=== PATIENT | female | born 1970 | race Caucasian/White ===

== ENCOUNTER 2021-12-20 11:16 | Emergency (ER) | payer BC ==
--- OUTSIDE RECORDS SUMMARY | 2021-12-20 11:30 | XMS REPORT | Continuity of Care Document ---
:1970 Author Organization [facility] t Address [facility] Cross [address] [place] [id number] Care Team Providers Name Role Phone NITO Primary Care Physician Unavailable Elisabet Medrano Attending Clinician Unavailable Torrie Ortiz Attending Clinician Unavailable Sonu Attending Clinician Unavailable Nurse, [facility] Attending Clinician Unavailable Eugenio PANDYAP Attending Clinician EUGENIO Attending Clinician Unavailable MANN Attending Clinician Unavailable Singer COBB Attending Clinician Pob1, [facility] Attending Clinician Unavailable NITO Attending Clinician Unavailable Sonu Admitting Clinician Unavailable Admitting Clinician Unavailable Payers Payer Name Policy Type Policy Number Effective Date Expiration Date S ource Problems Condition Condition Condition Status Onset Resolution Last Treating Co mments Source Name Details Category Date Date Treatment Clinician Date No known No known Disease Unive rs active active ity of problems problems [facility] Allergies, Adverse Reactions, Alerts Allergy Allergy Status Severity Reaction(s) Onset Inactive Treating Comm ents Source Name Type Date Date Clinician Meperidi Propensi Active Unknown - Uni vers ne ty to See comments 05-24 ity of adverse 00:00: [place] [facility] Prometha Propensi Active Unknown - Uni vers zine ty to See comments 05-24 ity of adverse 00:00: [place] reaction 00 [facility] Branch MEPERIDI DRUG Active Unknown-Cmnt Un steffany NE INGREDI 05-24 ity of 00:00: [place] 00 Medical Branch PROMETHA DRUG Active Unknown-Cmnt [facility] ity of 00:00: [place] 00 [facility] No Known DA Active U 0 [facility] 05[facility]30 [place] s 00:00: [place] [facility] No Known DA Active U 0 [facility] Allergie 05-30 [place] s 00:00: [address] NO KNOWN Drug Active Univers ALLERGIE Class ity of S [facility] Social History Social Habit Start Date Stop Date Quantity Comments Source Exposure to Not sure [facility] SARS-CoV-2 (event) Medica l Branch Tobacco use and 2021-05-24 2021-05-24 [facility]00 00[facility]00:00 [facility] Sex Assigned At [birth year] [facility] 00:00:00 00:00:00 [facility] Smoking Status Start Date Stop Date Source Current every day smoker 2021-05-24 [facility]:00[facility]ations Ordered Filled Start Stop Current Ordering Indication Dosage Frequency Signature Comments Components Source Medication Medication Date Date Medication? Clinician (SIG) Name Name albuterol-i Yes [id number] 1{puff} Inhale 1 Univers pratropium 3-24 Puff 4 ity of 20-100 00:00: (four) [place] mcg/actuati 00 times Medical on inhaler daily. Branch Vital Signs Vital Name Observation Time Observation Value Comments Source Systolic blood 2021-05-25 01:13:00 171 mm[Hg] Univer sity of pressure [facility] Diastolic blood 2021-05-25 01:13:00 137 mm[facility]Hg[facility] Heart rate 2021-05-25 01:13:00 111 /min [facility] Body temperature 2021-05-25 01:13:00 37.06 Evelia [facility] Respiratory rate 2021-05-25 01:13:00 20 /min [facility] Body weight 2021-05-25 01:13:00 65.772 kg [facility] BMI 2021-05-25 01:13:00 22.05 kg/m2 [facility] Oxygen saturation in 2021-05-25 01:13:00 98 /min University Arterial blood by [facility] Pulse oximetry Branch Procedures Procedure Date / Time Performed Performing Clinician Jb shakir [id number] 2020-05-31 00:00:00 HUMBERTO [facility] [id number] 2020-05-31 00:00:00 HUMBERTO [facility] [id number] 2020-05-31 00:00[facility]00 [facility] En[facility] Start End Encounter Admission Attending Care Care Encounter Source Date/Time Date/Time Type Type Clinicians Facility Department ID 2021-10-18 Outpatient AdelfolexideirdrePATRICIA [facility] [id number] 13:47:56 Cathy [id number] [facility] 2020-07-19 Inpatient Charly Wagner [facility] [id number] [facility] 10:30:00 [id number] [facility] [place] 2020-05-31 Inpatient JAMILAH Ascencio [facility].01 [id number] [facility] 11:44:00 Jennyfer [facility] [place] 2020-05-30 Inpatient JAMILAH Ascencio [facility]. [id number] [facility] 23:00:00 Jennyfer [id number] [facility] [place] 2021-05-24 2021-05-24 Nurse Nurse, Sim [facility] [id number] Univers 20:13:01 20:33:[address] [facility] [id number] [facility] [id number] Dontrell as Dov?Blea [phone] N[place] alyssia [address] Medical Office Building 2021-05-24 2021-05-24 Outpatient R [facility] [id number] Univers 20:00:00 20:00:00 [id number] [facility] 2021-05-24 2021-05-24 [facility] [id number] Univers 20:00:00 20:00:00 [facility] 2020-07-15 2020-07-15 Outpatient Charly Ortiz [facility] [id number] [facility] 10:30:00 10:30:00 [id number] [facility] [place] 2020-05-31 2020-05-31 Outpatient VIRGIL AscencioU REFE [id number] [facility] 01:51:00 01:51:00 Jennyfer [facility] 2019-12-15 2019-12-15 Emergency X SINGER [facility] ERT [id number] Univers 15:18:15 17:33:00 KRZYSZTOF [facility] 2019-12-15 2019-12-15 Emergency Singer [facility] [id number] 15:18:15 17:33:00 Krzysztof Garcia [id number] [place] 4.2.7.2.686 [place] [id number] 2019-12-15 2019-12-15 Office Pob1, Acute [facility] [id number] 14:07:20 14:27:20 Visit [facility] [id number] [place] 4.2.7.2.686 Profess [phone] nal 0[address] One 2019-12-15 2019-12-15 Outpatient Janice BEAUCHAMP [facility] [id number] Univers 14:20:00 14:20:00 KYLE [facility] Results Test Description Test Time Test Comments Results Result Comments Source UTERUS,OTHER THAN PROLAPSE/KISHA 2020-07-20 16:48:00 Test Item Value Reference Range Interpretation Comme nts UTERUS,OTHER RUN THAN DATE: 07/21/20 [facility] PAGE 1 RUN PROLAPSE/KISHA TIME: 818 Specimen Inquiry RUN USER: INTERFACE (test code = UTERUSOTH) SHERYL ENT: VIDA ZAMORA LOC: [facility] U #: [id number] AGE/SX: 50/F [facility] RE07/19/20REG DR: Charly Ortiz III, MD : 74 BED: A DIS: 07/19/20 STATUS: DIS Vale TLOC: SPEC #: [id number] R YARDAGE CONTROL CLERK: 07/19/20 STATUS: CALEB REQ #: [id number] CARMINE: DR: Charly Ortiz III, MD ENTERED: 07/19/20 SP TYPE: [facility] DR: Zara Dhillon MD ORDERED: LEVEL V SURGICA CODES: [id number] - UTERUS, NOS COPIES TO: Zara Concepcion MD [address] [facility] [address] [place] [address] [email or web address] Charly Ortiz III, MD [address] [facility] [address] [place] [address] PROCEDURES: LEVEL V SURGICA (Incomplete) TISSUES: UTERUS, NOS - UTERUS, CERVIX AND PARTIAL RIGHT FALLOPIAN TUBE CLINICAL HISTORY 50 year old, pelvic pain, cervi carroll intraepithelial neoplasia (wpd) FINAL DIAGNOSIS Uterus, partial right fallop ubaldo tube, hysterectomy and partial salpingectomy: 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 (STEVE 3), margins free - parakeratosis and focal nons pecific chronic cervicitis endometrium - benign, proliferative phase m yometrium - leiomyoma, 3.5 mm uterine serosa - no significant pathologic alteration right fallopian tube - benign paratubal cyst CPT code(s): 04531 [facility]/wpd CONTINUED ON NEXT PAGE RUN DATE: 07/21/20 [facility] PAGE 2 RUN TIME: 818 Specimen Inquiry RUN USER: INTERFACE SPEC #: [id number] PATIENT: VIDA ZAMORA #[id number] (Continued) ------- GROSS DESCRI PTION ANATOMIC SOURCE OF TISSUE (per Requisition): Uterus, cervix, partial right tube The specimen is received in a formalin-filled container, labeled with the patient's name and designated "uterus, cervix, partial right tube". The specimen consists a 55 gm, 6 x 5 x 4.5 cm uterus with cervix (2.5 x 2.5 cm, with a 0.5 cm ovoid os). Also received detached is a segment of fallopian tube measuring 2.5 x 0.6 cm. The anterior aspect is inked g reen. The posterior aspect is inked black. The serosa is palacio-pink and dull. The ectocervix is white-pink and dull. The endocervix is palacio-pink. The specimen is bivalved t o reveal a 3.5 x 1.7 cm palacio-pink endometrial cavity. The endometrial thickness aver ages 0.1 cm. The anterior myometrium displays a 0.3 cm white-pink nodule. The myometrium is t an-pink with a 1.3 cm average thickness. The fallopian tube is palacio-pink with fimbriae. Sectioning reveals a pinpoint lumen. A 1.0 cm paratubal cyst is identified. Representa tive sections are submitted as follows: A1 and A2 - 12:00 to 3:00 cervix, A3 and A4 - 3:00 t o 6:00 cervix, A5 and A6 - 6:00 to 9:00 cervix, A7 and A8 - 9:00 to 12:00 cervix, A9 - anteri or endomyometrium, A10 - posterior endomyometrium, A11 - myometrium and nodule, A12 - fallopian tube and paratu bal cyst. cooper/wpd 07/19/20 ---- Signed Mai Schmitt MD 07/20/20 1648 END OF REPORT COVID 19 Asymptomatic IH [id number] 18:15:00 Test Item Value Reference Range Interpretation Comments COVID 19 NEGATIVE NEGATIVE This test has b een Asymptomatic IH AG authorize d only for the (test code = detection ofpro teins from COVNONPUIAG) SARS-CoV-2, not for any other viruses orpathogens. N egative results should be treated as presumptive andconfirmed wi th a molecular assay , if necessary for patientmanageme nt. Negative result s do not rule out COVID- 19 andshould not b e used as the sole basis for treatment orpat ient management deci sions, including infec tion controldecision s. Negative result s should be considered i n thecontext of a patient's recent exposure s, history and thepresence of clinical signs and symptoms consis tent withCOVID-19. T his test has not been FD A cleared or approved; th e test hasbeen authori sheri by FDA under an Emerge ncy Use Authorization(E UA) for use by laborato jacinta certified under the CLIA thatmeet the re quirements to perform mode rate, high or waivedcomple xity tests. This shine t is authorized for use at thePoint of Car e (POC), i.e., in patien t care settingsoperati ng under a CLIA Certificat e of Waiver, Certifi quinten ofCompliance, o r Certificate of Accreditation. This test is only authori zed for the duration of thedeclaration that circumstances e xist justifying theauthorizatio n of emergency use o f in vitro diagnostic test sfor detection and/o r diagnosis of CO VID-19 under Lzpmvsd95 4(b)(1) of the Act, 21 U.S .C. 360bbb-3(b)(1), unless theauthorizatio n is terminated or r evoked sooner. URINALYSIS [id number] 12:52:00 Test Item Value Reference Range Interpretation Comments UA COLOR (test code = COLU) YELLOW YELLOW UA APPEARANCE (test code = Slightly-Cloudy CLEAR APPU) UA GLUCOSE DIPSTICK (test NEGATIVE NEG code = DGLUU) UA BILIRUBIN DIPSTICK (test NEGATIVE NEG code = BILU) UA KETONE DIPSTICK (test code NEGATIVE NEG = KETU) UA SPECIFIC GRAVITY (test 1.027 1.001-1.035 N code = SGU) UA BLOOD DIPSTICK (test code 3+ NEG A = KEVIN) UA PH DIPSTICK (test code = 5.0 5-9 JORGE) UA PROTEIN DIPSTICK (test NEGATIVE NEG code = PROU) UA UROBILINIOGEN DIPSTICK NEGATIVE mg/dL NEG (test code = URO) UA NITRITE DIPSTICK (test NEG NEG code = SIGIFREDO) UA LEUKOCYTE ESTERASE TRACE NEG A DIPSTICK (test code = LEUU) UA WBC (test code = WBCU) 3-5 #/hpf NONE SEEN A UA RBC (test code = RBCU) 31-40 #/hpf NONE SEEN A UA EPITHELIAL CELLS (test RARE #/HPF RARE-FEW code = EPIU) UA BACTERIA (test code = RARE /HPF RARE-FEW BACU) UA MUCUS (test code = MUCU) 2+ NONE SEEN URINE SAMPLE: CLEAN CATCHAB HIV 1 12:32:00 Test Item Value Reference Range Interpretation Comments AB HIV 1 2 (test NONREACTIVE NONREACTIVE Done by Naima [facility] [employer] code = [id number]) 4th Gen HIV Ag/Ab Combo Screen IS CONSENT FORM SIGNED FOR HIV TESTING? YHCG SERUM [id number] 11:30:00 Test Item Value Reference Range Interpretation Comments HCG SERUM QUAL (test code = HCGQL) NEGATIVE CBC W/AUTO [id number] 11:28:00 Test Item Value Reference Range Interpretation Comments WHITE BLOOD CELL (test code = WBC) 9.6 K/mm3 6.6-12.1 N RED BLOOD CELL (test code = RBC) 3.79 M/mm3 3.45-5.01 N HEMOGLOBIN (test code = HGB) 13.2 g/dL 10.7-13.9 N HEMATOCRIT (test code = HCT) 39.4 % 32.1-42.1 N MEAN CELL VOLUME (test code = MCV) 104 fL 84.1-94.8 H MEAN CELL HGB (test code = MCH) 34.8 pg 27-35 N MEAN CELL HGB CONCETRATION (test 33.5 gm/dL 32.2-34.1 N code = MCHC) RED CELL DISTRIBUTION WIDTH (test 11.9 % 12.4-16.5 L code = RDW) PLATELET COUNT (test code = PLT) 293 K/mm3 133-385 N MEAN PLATELET VOLUME (test code = 11.3 fl 9.1-12.7 N MPV) NEUTROPHIL % (test code = NT%) 56.1 % 56.5-79.4 L LYMPHOCYTE % (test code = LY%) 33.2 % 14.3-34.3 N MONOCYTE % (test code = MO%) 5.9 % 5.1-10.4 N EOSINOPHIL % (test code = EO%) 4.0 % 0.1-3.0 H BASOPHIL % (test code = BA%) 0.6 % 0.1-1.0 N NEUTROPHIL # (test code = NT#) 5.4 K/mm3 LYMPHOCYTE # (test code = LY#) 3.2 K/mm3 MONOCYTE # (test code = MO#) 0.6 K/mm3 EOSINOPHIL # (test code = EO#) 0.38 K/mm3 BASOPHIL # (test code = BA#) 0.1 K/mm3 RBC MORPHOLOGY REQUIRED (test code NORMAL NORMAL = RBCM) PLATELET MORPHOLOGY REQUIRED (test NORMAL NORMAL code = PLTMR) [id number] 12:44:00 Test Item Value Reference Range Interpretation Comments CA 19-9 (test code = CA19) 6.0 Comments to Medical Staffing Coordinator: large pelvic massCA [id number] 07:17:00 Test Item Value Reference Range Interpretation Comments CA 19-9 (test 6.0 U/mL 0-35 [employer] code = CA19) Electrochemilum inescence Immunoassay(ECL IA)Values obtained with d ifferent assay methods or kits cannotbe used interchangeably . Results cannot be interpreted asabsolute evidence of the presence or absence of malignantdiseas e.Performed At: [facility] [place], [place] [id number] ra Dashawn HODGES Ph:[phone] FLUID,[id number] 18:03:00 RUN DATE: 06/03/20 [facility] PAGE 1 RUN TIME: 817 Specimen Inquiry RUN USER: INTERFACE PATIENT: VIDA ZAMORA [facility] #: [id number] AGE/SX: 50/F ROOM: [facility] RE05/31/20REG DR: Jennyfer Ascencio MD : 74 BED: A DIS: 06/01/20 STATUS: DIS IN TLOC: SPEC #: [id number] RECD: 05/31/20 STATUS: CALEB REReena #: [id number] CARMINE: 05/31/20- SUBM DR: Jennyfer Ascencio MD ENTERED: 05/31/20 SP TYPE: ZEUS MENDOZA DR: Ladarius Carrillo MD ORDERED: CYTOLOGY/SACCOM CODES: [id number] - OVARY, NOS COPIES TO: Jennyfer Ascencio MD [address] [place] [address] Ladarius Carrillo MD [address] [place] [address] [address] [place], [place] PROCEDURES: CYTOLOGY/SACCOM (Incomplete) TISSUES: OVARY, NOS - LEFT OVARIAN CYST FLUID CLINICAL HISTORY Not provided (kr) FINAL DIAGNOSIS Left ovarian cyst fluid (cytospins): - no malignant cells identified CPT code(s): 02440 [facility] GROSS DESCRIPTION The specimen is received in a container, labeled with the patient'sname and designated "left ovarian cyst fluid" and consists of approximately 30 ml of yellow liquid. Two cytospins are made. No cell block is prepared. ascencion/bebeto 05/31/20 CONTINUED ON NEXT PAGE RUN DATE: 06/03/20 [facility] PAGE 2 RUN TIME: 817 Specimen Inquiry RUN USER: INTERFACE SPEC #: [id number] PATIENT: VIDA ZAMORA #[id number] (Continued) MICROSCOPIC DESCRIPTION COMMENT: The corresponding surgical pathology [id number] showed: Endometrial polyp, curettage: - raresmall groups of atypical squamous cells suspicious for dysplasia/high- grade squamous intraepithelial neoplasia - rare small fragments of benign superficial endometrium Left ovarian cyst, fallopian tube and ovary, salpingo-oophorectomy: - fallopian tube - no significant pathologic alteration - ovary - benign surface epithelial inclusion cyst, 11 cm (collapsed) [facility] /wpd Signed Mai Schmitt MD 06/02/20 1803 END OF REPORT ENDOMETRIUM,[id number] 15:10:00 RUN DATE: 06/02/20 [facility] PAGE 1 RUN TIME: 1343 Specimen Inquiry RUN USER: INTERFACE PATIENT: VIDA ZAMORA LOC: [facility] U #: [id number] AGE/SX: 50/F ROOM: [facility] RE05/31/20REG DR: Jennyfer Ascencio MD : 74 BED: A DIS: 06/01/20 STATUS: DIS IN TLOC: SPEC #: [id number] RECD: 05/31/20-1250 STATUS: CALEB PAZ #: [id number] CARMINE: 05/31/20- SUBM DR: Jennyfer Ascencio MD ENTERED: 05/31/20-1251 SP TYPE: ENDOMETBX OTHR DR: Ladarius Carrillo MD ORDERED: LEVEL IV/2 CODES: [id number] - ENDOMETRIUM, NO [id number] - OVARY, NOS COPIES TO: Jennyfer Skelton MD [address] [place] [address] Ladarius Carrillo MD [address] [place] [address] [address] [place] [address] PROCEDURES: LEVEL IV (Incomplete) TISSUES: ENDOMETRIUM, NOS - ENDOMETRIAL POLYP OVARY, NOS - LEFT OVARIAN CYST, TUBE AND OVARY CLINICAL HISTORY Not provided (kr) FINAL DIAGNOSIS Endometrial polyp, curettage: - Rare small groups of atypical squamous cells suspicious for dysplasia/high- grade squamous intraepithelial neoplasia - Rare small fragments of benign superficial endometrium Left ovarian cyst, fallopian tube and ovary, salpingo-oophorectomy: - fallopian tube - no significant pathologic alteration - ovary - benign surface epithelial inclusion cyst, 11 cm (collapsed) CPT: 33990 x2, 24420-32, 29368-22 ls/wpd CONTINUED ON NEXT PAGE RUN DATE: 06/02/20 [facility] PAGE 2 RUN TIME: 1343 Specimen Inquiry RUN USER: INTERFACE SPEC #: [id number] PATIENT: VIDA ZAMORA #[id number] (Continued) GROSS DESCRIPTION ANATOMIC SOURCE OF TISSUE (per Requisition): 1. Endometrial polyp 2. Left ovarian cyst, tube and ovary Each specimen islabeled with the patient's name and medical record number. Specimen #1 is designated "endometrial polyp" and consists of small pieces of pink tissue on a Telfa pad aggregating to 0.3 x 0.3 x <0.1 cm and is submitted in toto A1. Specimen #2 is designated "left ovarian cyst, tube, andovary" and consists of a 4 x 0.3 x 0.3 cm fallopian tube with fimbriae with an attached collapsed 11 x 10 x 0.4 cm unilocular cyst with off-white and wrinkled internal lining. No papillary nor firm lesion is noted. The scant contents of the cyst is clear and thin. No ovarian tissue is identified. Senior [employer] Administrator sections are submitted in B1 through B7 (B1 contains the entire fimbriae andone cross-section of tube and cyst wall). nancy/bebeto 05/31/20 MICROSCOPIC DESCRIPTION The following technical components were performed at [facility] [employer] [place], [address] [facility] [address] [facility],[address], [place] [address]. The interpretation is provided by [facility], [address], [place] [address]. Controls received from [employer] stained appropriately. INTERP RETATION: Block A1- p16: Positive Ki-67: Focally positive Signed Mai Schmitt MD 06/01/20 1510 END OF REPORT CBC W/AUTO [id number] 07:02:00 Test Item Value Reference Range Interpretation Comments WHITE BLOOD CELL (test code = WBC) 11.8 K/mm3 6.6-12.1 N RED BLOOD CELL (test code = RBC) 3.21 M/mm3 3.45-5.01 L HEMOGLOBIN (test code = HGB) 11.5 g/dL 10.7-13.9 N HEMATOCRIT (test code = HCT) 32.9 % 32.1-42.1 N MEAN CELL VOLUME (test code = MCV) 103 fL 84.1-94.8 H MEAN CELL HGB (test code = MCH) 35.8 pg 27-35 H MEAN CELL HGB CONCETRATION (test 35.0 gm/dL 32.2-34.1 H code = MCHC) RED CELL DISTRIBUTION WIDTH (test 12.5 % 12.4-16.5 N code = RDW) PLATELET COUNT (test code = PLT) 288 K/mm3 133-385 N MEAN PLATELET VOLUME (test code = 10.6 fl 9.1-12.7 N MPV) NEUTROPHIL % (test code = NT%) 64.9 % 56.5-79.4 N LYMPHOCYTE % (test code = LY%) 25.3 % 14.3-34.3 N MONOCYTE % (test code = MO%) 8.3 % 5.1-10.4 N EOSINOPHIL % (test code = EO%) 0.9 % 0.1-3.0 N BASOPHIL % (test code = BA%) 0.3 % 0.1-1.0 N NEUTROPHIL # (test code = NT#) 7.6 K/mm3 LYMPHOCYTE # (test code = LY#) 3.0 K/mm3 MONOCYTE # (test code = MO#) 1.0 K/mm3 EOSINOPHIL # (test code = EO#) 0.10 K/mm3 BASOPHIL # (test code = BA#) 0.0 K/mm3 RBC MORPHOLOGY REQUIRED (test code NORMAL NORMAL = RBCM) PLATELET MORPHOLOGY REQUIRED (test NORMAL NORMAL code = PLTMR) AG [id number] 18:39:00 Test Item Value Reference Range Interpretation Comments AG CARCINOEMBRYONIC (test code = 0.52 ng/mL 0.0-3.00 N CEA) CA [id number] 18:39:00 Test Item Value Reference Range Interpretation Comments CA 125 (test code = CA125) < 5.5 Units/mL 0-35.0 N COMPREHENSIVE METABOLIC [id number] 18:39:00 Test Item Value Reference Range Interpretation Comments SODIUM (test code = NA) 140 mEq/L 135-145 N POTASSIUM (test code = K) 3.5 mEq/L 3.5-5.0 N CHLORIDE (test code = CL) 105 mEq/L 100-115 N CARBON DIOXIDE (test code = CO2) 28 mEq/L 22-31 N ANION GAP (test code = GAP) 10.70 10-20 N GLUCOSE (test code = GLU) 110 mg/dL 65-110 N BLOOD UREA NITROGEN (test code = 16 mg/dL 7-18 N BUN) GLOMERULAR FILTRATION RATE (test 59 ml/min >60 L code = GFR) CREATININE (test code = CREAT) 1.0 mg/dL 0.5-1.0 N TOTAL PROTEIN (test code = PROT) 6.6 gm/dL 6.3-8.2 N ALBUMIN (test code = ALB) 3.6 gm/dL 3.4-4.8 N CALCIUM (test code = CA) 8.0 mg/dL 8.4-10.2 L BILIRUBIN TOTAL (test code = BILT) 0.3 mg/dL 0.2-1.0 N SGOT/AST (test code = AST) 30 units/L 15-37 N SGPT/ALT (test code = ALT) 49 units/L 12-78 N ALKALINE PHOSPHATASE TOTAL (test 75 units/L 46-116 N code = ALKP) AG [id number] 18:39:00 Test Item Value Reference Range Interpretation Comments AG CARCINOEMBRYONIC (test code = 0.52 ng/mL 0.0-3.00 CEA) CA [id number] 18:39:00 Test Item Value Reference Range Interpretation Comments CA 125 (test code = CA125) <5.5 Units/mL 0-35.0 HCG [id number] 01:59:00 Test Item Value Reference Range Interpretation Comments HCG SERUM (test <1 INTERPRETATI ON:VALUES BETWEEN code = HCG) 15-20 milliInte rnational units/mL NEED T O BERETESTED WITHIN 48 HOURS . All units for these ranges ar e in milliInternatio nalunits/mL0-1 WK AFTER CONCEP TION 0-50 1-2 W KS AFTER CONCEPTION 40-3002-3 WKS A FTER CONCEPTION 100-1 ,0003-4 WKS AFTER CONCEPTIO N 500-6,0001-2 MO NTHS AFTER CONCEPTION 5,000-200,0002- 3 MONTHS AFTER CONCEPTION 10,000-100,0002 ND TRIMESTER 3,000-50,0003RD TRIMESTER 1 ,000-50,000 SPECIMENS WITH AN HCG LEVEL FROM 0-6 milliInternatio nalunits/mL SHOULD BE CONSI DERED NEGATIVE COMPREHENSIVE METABOLIC [id number] 01:50:00 Test Item Value Reference Range Interpretation Comments SODIUM (test code = NA) 140 mEq/L 135-145 N POTASSIUM (test code = K) 3.5 mEq/L 3.5-5.0 N CHLORIDE (test code = CL) 105 mEq/L 100-115 N CARBON DIOXIDE (test code = CO2) 28 mEq/L 22-31 N ANION GAP (test code = GAP) 10.70 10-20 N GLUCOSE (test code = GLU) 110 mg/dL 65-110 N BLOOD UREA NITROGEN (test code = 16 mg/dL 7-18 N BUN) GLOMERULAR FILTRATION RATE (test 59 ml/min >60 L code = GFR) CREATININE (test code = CREAT) 1.0 mg/dL 0.5-1.0 N TOTAL PROTEIN (test code = PROT) 6.6 gm/dL 6.3-8.2 N ALBUMIN (test code = ALB) 3.6 gm/dL 3.4-4.8 N CALCIUM (test code = CA) 8.0 mg/dL 8.4-10.2 L BILIRUBIN TOTAL (test code = BILT) 0.3 mg/dL 0.2-1.0 N SGOT/AST (test code = AST) 30 units/L 15-37 N SGPT/ALT (test code = ALT) 49 units/L 12-78 N ALKALINE PHOSPHATASE TOTAL (test 75 units/L 46-116 N code = ALKP) AG [id number] 01:50:00 Test Item Value Reference Range Interpretation Comments AG CARCINOEMBRYONIC (test code = CEA) CA [id number] 01:50:00 Test Item Value Reference Range Interpretation Comments CA 125 (test code = CA125) COVID 19 Asymptomatic IH [id number] 01:50:00 Test Item Value Reference Range Interpretation Comments COVID 19 NEGATIVE NEGATIVE This test has b een Asymptomatic IH AG authorize d only for the (test code = detection ofpro teins from COVNONPUIAG) SARS-CoV-2, not for any other viruses orpathogens. N egative results should be treated as presumptive andconfirmed wi th a molecular assay , if necessary for patientmanageme nt. Negative result s do not rule out COVID- 19 andshould not b e used as the sole basis for treatment orpat ient management deci sions, including infec tion controldecision s. Negative result s should be considered i n thecontext of a patient's recent exposure s, history and thepresence of clinical signs and symptoms consis tent withCOVID-19. T his test has not been FD A cleared or approved; th e test hasbeen authori sheri by FDA under an Emerge ncy Use Authorization(E UA) for use by laureen workman certified under the CLIA thatmeet the re quirements to perform mode rate, high or waivedcomple xity tests. This shine t is authorized for use at thePoint of Car e (POC), i.e., in patien t care settingsoperati ng under a CLIA Certificat e of Waiver, Certifi quinten ofCompliance, o r Certificate of Accreditation. This test is only authori zed for the duration of thedeclaration that circumstances e xist justifying theauthorizatio n of emergency use o f in vitro diagnostic test sfor detection and/o r diagnosis of CO VID-19 under Schahiq21 4(b)(1) of the Act, 21 U.S .C. 360bbb-3(b)(1), unless theauthorizatio n is terminated or r evoked sooner. UR HCG [id number] 01:28:00 Test Item Value Reference Range Interpretation Comments UR HCG QUAL (test NEGATIVE 1. Very di lute urine code = HCGQLU) specimens, as indicated by a lowspecific g ravity, may not contain rep resentative levels ofhCG. 2 . False negative result s may occur when the levels of hCGare below the sensi tivity level of the test. If is still suspec comfort, a first morningurine sp ecimen should be colle cted 48 hours later and tested. CBC W/AUTO [id number] 01:21:00 Test Item Value Reference Range Interpretation Comments WHITE BLOOD CELL (test code = WBC) 9.0 K/mm3 6.6-12.1 N RED BLOOD CELL (test code = RBC) 3.65 M/mm3 3.45-5.01 N HEMOGLOBIN (test code = HGB) 12.9 g/dL 10.7-13.9 N HEMATOCRIT (test code = HCT) 37.6 % 32.1-42.1 N MEAN CELL VOLUME (test code = MCV) 103 fL 84.1-94.8 H MEAN CELL HGB (test code = MCH) 35.3 pg 27-35 H MEAN CELL HGB CONCETRATION (test 34.3 gm/dL 32.2-34.1 H code = MCHC) RED CELL DISTRIBUTION WIDTH (test 12.9 % 12.4-16.5 N code = RDW) PLATELET COUNT (test code = PLT) 279 K/mm3 133-385 N MEAN PLATELET VOLUME (test code = 10.3 fl 9.1-12.7 N MPV) NEUTROPHIL % (test code = NT%) 43.3 % 56.5-79.4 L LYMPHOCYTE % (test code = LY%) 43.5 % 14.3-34.3 H MONOCYTE % (test code = MO%) 8.5 % 5.1-10.4 N EOSINOPHIL % (test code = EO%) 3.7 % 0.1-3.0 H BASOPHIL % (test code = BA%) 0.8 % 0.1-1.0 N NEUTROPHIL # (test code = NT#) 3.9 K/mm3 LYMPHOCYTE # (test code = LY#) 3.9 K/mm3 MONOCYTE # (test code = MO#) 0.8 K/mm3 EOSINOPHIL # (test code = EO#) 0.33 K/mm3 BASOPHIL # (test code = BA#) 0.1 K/mm3 RBC MORPHOLOGY REQUIRED (test code NORMAL NORMAL = RBCM) PLATELET MORPHOLOGY REQUIRED (test NORMAL NORMAL code = PLTMR)
[2021-12-20] MEDS ORDERED: FAMOTIDINE 20 MG/2 ML VIAL IV ONE (11:45)
[2021-12-20] MEDS ORDERED: ONDANSETRON 4 MG/2 ML VIAL ONE ×2 (11:45→12:44)
[2021-12-20] MEDS ORDERED: NA CHLORIDE 0.9% 1,000 ML ONE (11:45)
[2021-12-20 12:01] LABS: Absolute Lymphocytes (CBC) 3.9 K/uL (0.7-4.9); Hematocrit 39.5 % (36.0-45.0); Lymphocytes % 47.6 % (15.3-44.8); MPV 8.2 fL (7.6-11.3); RBC Red Blood Cell Count 4.08 M/uL (3.86-4.86)
[2021-12-20 12:12] LABS: Albumin 4.3 g/dL (3.4-5.0); Bilirubin Total 0.3 mg/dL (0.2-1.0); Potassium 3.7 mmol/L (3.5-5.1); Protein, Total 8.1 g/dL (6.4-8.2)
[2021-12-20] MEDS ORDERED: KETOROLAC 30 MG/ML INJ ONE (12:27)
--- NOTE | 2021-12-20 13:09 | RAD REPORT ---
EXAM DESCRIPTION: CT - Abdomen Pelvis W Contrast - 12/20/2021 1:00 pm CLINICAL HISTORY: Abdominal pain/vomiting COMPARISON: 2018 TECHNIQUE: Computed axial tomography of the abdomen pelvis was obtained. 100 cc Isovue-300 was admin istered intravenously. Oral contrast was not requested which limits evaluation of bowel and appendix All CT scans are performed using dose optimization technique as appropriate and may include automated exposure control or mA/KV adjustment according to patient size. FINDINGS: Fatty liver Spleen, pancreas and adrenals are unremarkable. Small bilateral nonobstructing renal calculi. No hydronephrosis. There is no evidence of diverticulitis. The limited evaluation of the appendix secondary to the lack of oral contrast. Appendix is not clearl y seen. No stranding visualized adjacent to the cecum. No adnexal mass. Hysterectomy. Tiny umbilical hernia IMPRESSION: Fatty liver Small nonobstructing renal calculi
--- NOTE | 2021-12-20 13:11 | ER ---
Nurse's Notes [facility] Name: Kira Last Age: 51 yrs Sex: Female : 1970 Arrival Date: 12/20/2021 Time: 11:18 Bed 14 Private MD: Diagnosis: Nausea with vomiting, unspecified Presentation: 12/20 11:38 Chief complaint: Patient states: N/V for 3 days. No fever or dysuria. Coronavirus ll1 screen: Vaccine status: Patient reports being unvaccinated. Client denies travel out of the [place] in the last 14 days. fatigue, nausea, vomiting. Client presents with at least one sign or symptom that may indicate coronavirus-19. Standard/surgical mask placed on the client. Ebola Screen: Patient denies travel to an Ebola-affected area in the 21 days before illness onset. Initial Sepsis Screen: Does the patient meet any 2 criteria? No. Patient's initial sepsis screen is negative. Does the patient have a suspected source of infection? No. Patient's initial sepsis screen is negative. Risk Assessment: Do you want to hurt yourself or someone else? Patient reports no desire to harm self or others. Onset of symptoms was December 18, 2021. 11:38 Method Of Arrival: Ambulatory ll1 11:38 Acuity: SATNAM 3 ll1 Triage Assessment: 11:22 General: Appears ill, Behavior is cooperative, appropriate for age. Pain: Complains of ll1 pain in abdomen Quality of pain is described as aching, crampy. GI: Reports lower abdominal pain, upper abdominal pain, nausea, vomiting. 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 - Social history:: Smoking status: Reported history of juuling and/or vaping. Screenin:52 Abuse screen: Denies threats or abuse. Denies injuries from another. Nutritional jg9 screening: No deficits noted. Tuberculosis screening: No symptoms or risk factors identified. Fall Risk None identified. Assessment: 11:51 Reassessment: No changes from previously documented assessment. GI: Pt is actively jg9 vomiting bile. Vital Signs: 11:30 BP 135 / 99; Pulse 110; Resp 17 S; Pulse Ox 92% on R/A; jg9 11:38 BP 142 / 119; Pulse 127; Resp 18; Temp 97.8(TE); Pulse Ox 95% on R/A; Weight 66.22 kg; ll1 Height 5 ft. 5 in. (165.10 cm); Pain 3/10; 11:45 BP 121 / 97; Pulse 103; Resp 18 S; Pulse Ox 94% on R/A; jg9 12:30 BP 141 / 99; Pulse 93; Resp 17; Pulse Ox 98% ; Pain 9/10; jg9 11:38 Body Mass Index 24.30 (66.22 kg, 165.10 cm) ll1 11:38 actively dry heaving throughout triage. ll1 ED Course: 11:18 Patient arrived in ED. rg4 11:19 Radha Parmar FNP-C [facility]. kb 11:19 Dago Neil DO is Attending Physician. kb 11:20 Arm band placed on Patient placed in an exam room, on a stretcher. ll1 11:38 Minnie Beavers, RN is Primary Nurse. jg9 11:39 Triage completed. ll1 11:40 Inserted saline lock: 22 gauge in right wrist, using aseptic technique. Blood collected.jg9 11:53 Patient has correct armband on for positive identification. Bed in low position. Call jg9 light in reach. offered blanket. 13:01 CT Abd/Pelvis - IV Contrast Only In Process Unspecified. EDMS 13:17 No provider procedures requiring assistance completed. jg9 13:17 IV discontinued. jg9 Administered Medications: 11:45 Drug: NS 0.9% 1000 ml Route: IV; Rate: 1 bolus; Site: right wrist; jg9 12:33 Follow up: IV Status: Completed infusion; IV Intake: 1000ml jg9 11:46 Drug: Zofran (Ondansetron) 4 mg Route: IVP; Site: right wrist; jg9 12:33 Follow up: Response: No adverse reaction; Nausea is decreased jg9 11:47 Drug: Pepcid (famotidine) 20 mg Route: IVP; Site: right wrist; jg9 12:33 Follow up: Response: No adverse reaction; No change in condition; Pain is unchanged, jg9 physician notified 12:33 Drug: Ketorolac 15 mg Route: IVP; Site: right antecubital; jg9 12:46 Drug: Zofran (Ondansetron) 4 mg Route: IVP; Site: right antecubital; jg9 Intake: 12:33 IV: 1000ml; Total: 1000ml. jg9 Outcome: 13:11 Discharge ordered by MD. vickers 13:17 Discharged to home ambulatory. jg9 13:17 Condition: unchanged 13:17 Discharge instructions given to patient, Instructed on discharge instructions, follow up and referral plans. Demonstrated understanding of instructions, follow-up care, Prescriptions given X 2. 13:17 Patient left the ED. jg9 Signatures: Dispatcher [employer] EDRadha Elizalde, ATOMIC SPECTROSCOPIST-C SABRINA-Hollie Cobian rg4 Anny Burton RN RN ll1 Minnie Beavers RN RN jg9
--- NOTE | 2021-12-20 13:11 | EDPHYS ---
Physician Documentation [facility] Name: Kira Last Age: 51 yrs Sex: Female : 1970 Arrival Date: 12/20/2021 Time: 11:18 Bed 14 Private MD: ED Physician Dago Neil HPI: 12/20 12:37 This 51 yrs old Female presents to ER via Ambulatory with complaints of Vomiting. kb 12:37 The patient presents to the emergency department with nausea, vomiting. Onset: The kb symptoms/episode began/occurred 3 day(s) ago. Possible causes: unknown. The symptoms are aggravated by nothing. The symptoms are alleviated by nothing. Associated signs and symptoms: Pertinent positives: nausea, vomiting, Pertinent negatives: abdominal pain, fever. Severity of symptoms: At their worst the symptoms were moderate in the emergency department the symptoms are unchanged. The patient has not experienced similar symptoms in the past. The patient has not recently seen a physician. Pt reports nausea and vomiting for 3 days. Denies pain, fever, diarrhea. . 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 - Social history:: Smoking status: Reported history of juuling and/or vaping. ROS: 12:35 Constitutional: Negative for fever, chills, and weight loss. kb 12:35 Abdomen/GI: Positive for nausea and vomiting, Negative for abdominal pain, diarrhea. 12:35 All other systems are negative. Exam: 12:35 Constitutional: This is a well developed, well nourished patient who is awake, alert, kb and in no acute distress. Head/Face: Normocephalic, atraumatic. ENT: Moist Mucous membranes Cardiovascular: Regular rate and rhythm with a normal S1 and S2. No gallops, murmurs, or rubs. No pulse deficits. Respiratory: Respirations even and unlabored. No increased work of breathing. Talking in full sentences Skin: Warm, dry with normal turgor. Normal color. MS/ Extremity: Pulses equal, no cyanosis. Neurovascular intact. Full, normal range of motion. Neuro: Awake and alert, GCS 15, oriented to person, place, time, and situation. Moves all extremities. Normal gait. Psych: Awake, alert, with orientation to person, place and time. Behavior, mood, and affect are within normal limits. 12:35 Abdomen/GI: Inspection: abdomen appears normal, Bowel sounds: normal, in all quadrants, Palpation: soft, in all quadrants, moderate abdominal tenderness, in the left lower quadrant. Vital Signs: 11:30 BP 135 / 99; Pulse 110; Resp 17 S; Pulse Ox 92% on R/A; jg9 11:38 BP 142 / 119; Pulse 127; Resp 18; Temp 97.8(TE); Pulse Ox 95% on R/A; Weight 66.22 kg; ll1 Height 5 ft. 5 in. (165.10 cm); Pain 3/10; 11:45 BP 121 / 97; Pulse 103; Resp 18 S; Pulse Ox 94% on R/A; jg9 12:30 BP 141 / 99; Pulse 93; Resp 17; Pulse Ox 98% ; Pain 9/10; jg9 11:38 Body Mass Index 24.30 (66.22 kg, 165.10 cm) ll1 11:38 actively dry heaving throughout triage. ll1 MDM: 11:19 Patient medically screened. kb 12:35 Data reviewed: vital signs, nurses notes. Data interpreted: Pulse oximetry: on room air kb is 98 %. Interpretation: normal. 13:10 Counseling: I had a detailed discussion with the patient and/or guardian regarding: the kb historical points, exam findings, and any diagnostic results supporting the discharge/admit diagnosis, lab results, radiology results, the need for outpatient follow up, a family practitioner, to return to the emergency department if symptoms worsen or persist or if there are any questions or concerns that arise at home. 12/20 11:25 Order name: CBC with Diff; Complete Time: 12:04 kb 12/20 11:25 Order name: CMP; Complete Time: 12:18 kb 12/20 11:25 Order name: Lipase; Complete Time: 12:18 kb 12/20 12:21 Order name: CT Abd/Pelvis - IV Contrast Only; Complete Time: 13:09 kb 12/20 11:25 Order name: IV Saline Lock; Complete Time: 11:40 kb 03/30 11:25 Order name: Labs collected and sent; Complete Time: 11:46 kb Administered Medications: 11:45 Drug: NS 0.9% 1000 ml Route: IV; Rate: 1 bolus; Site: right wrist; jg9 12:33 Follow up: IV Status: Completed infusion; IV Intake: 1000ml j9 11:46 Drug: Zofran (Ondansetron) 4 mg Route: IVP; Site: right wrist; jg9 12:33 Follow up: Response: No adverse reaction; Nausea is decreased j9 11:47 Drug: Pepcid (famotidine) 20 mg Route: IVP; Site: right wrist; jg9 12:33 Follow up: Response: No adverse reaction; No change in condition; Pain is unchanged, 9 physician notified 12:33 Drug: Ketorolac 15 mg Route: IVP; Site: right antecubital; j9 12:46 Drug: Zofran (Ondansetron) 4 mg Route: IVP; Site: right antecubital; j9 Disposition: 14:54 Co-signature as Attending Physician, Dago MADRIGAL was immediately available on-site ms3 in the Emergency Department for consultation in the care of the patient.. Disposition Summary: 12/20/21 13:11 Discharge Ordered Location: Home kb Condition: Stable kb Diagnosis - Nausea with vomiting, unspecified kb Followup: kb - With: Emergency Department - When: As needed - Reason: Worsening of condition Followup: kb - With: Private Physician - When: 2 - 3 days - Reason: Recheck today's complaints, Continuance of care, Re-evaluation by your physician Discharge Instructions: - Discharge Summary Sheet kb - Nausea and Vomiting, Adult, [id number] kb - Abdominal Pain, Adult, [id number] kb Forms: - Medication Reconciliation Form kb - Thank You Letter kb - Antibiotic Education kb - Prescription Opioid Use kb Prescriptions: - Zofran 4 mg Oral Tablet - take 1 tablet by ORAL route every 6 hours As needed; 20 tablet; Refills: 0, kb Product Selection Permitted - dicyclomine 20 mg Oral Tablet - take 1 tablet by ORAL route 4 times per day As needed; 20 tablet; Refills: 0, kb Product Selection Permitted Signatures: Dispatcher [employer] Radha Mcconnell FNP-C FNP-Anny Burch RN RN ll1 Dago Neil, DO ms3 Minnie Beavers, RN RN jg9
[2021-12-20 13:54] VITALS: TEMP 97.8
[2021-12-20 13:56] VITALS: BP 141/99; O2SAT 98
== END 2021-12-20 13:17 | disposition home or self-care (01) ==
LOC: ER 11:16
DX: R11.2 Nausea with vomiting, unspecified (principal); R10.32 Left lower quadrant pain
CPT/HCPCS: 85025; 36415; 83690; 80053; 74177; Q9967; J7030; J2405 ×2

== ENCOUNTER 2022-01-16 13:22 | Emergency (ER) | payer BC ==
--- OUTSIDE RECORDS SUMMARY | 2022-01-16 13:26 | XMS REPORT | Continuity of Care Document ---
:[address] [facility] t Address [address] [place] [address] [place] [address] Care Team Providers Name Role Phone NITO Primary Care Physician Unavailable Elisabet Medrano Attending Clinician Unavailable Torrie Ortiz Attending Clinician Unavailable Sonu Attending Clinician Unavailable Nurse, [facility] Attending Clinician Unavailable Eugenio PANDYAP Attending Clinician EUGENIO Attending Clinician Unavailable Singer COBB Attending Clinician Attending Clinician Unavailable Pob1, [facility] Attending Clinician Unavailable NITO Attending Clinician Unavailable Sonu Admitting Clinician Unavailable Admitting Clinician Unavailable Payers Payer Name Policy Type Policy Number Effective Date Expiration Date S ource Problems Condition Condition Condition Status Onset Resolution Last Treating Co mments Source Name Details Category Date Date Treatment Clinician Date No known No known Disease Unive rs active active ity of problems problems [facility] Allergies, Adverse Reactions, Alerts Allergy Allergy Status [...] PROMETHA DRUG Active Unknown-Cmnt Un steff[facility] of 00:00: [place] [facility] No Known DA Active U 0 [facility] Allergie 05-30 Rob[facility] s 00:00: [facility] No Known DA Active U 0 [facility] Allergie 05-30 Roby s 00:00: [address] NO KNOWN Drug Active Univers ALLERGIE Class ity of S [facility] Social History Social Habit Start Date Stop Date Quantity Comments Source Exposure to Not sure [facility] SARS-CoV-2 (event) Medica l Branch Tobacco use and 2021-05-24 2021-05-24 Never used [facility] exposure 00:00:00 00:00:00 [facility] Sex Ass[birth year] At [birth year] [facility] 00:00:00 00:00:00 [facility] Smoking Status Start Date Stop Date Source Current every day smoker 2021-05-24 00:00:00 [facility] Medications Ordered Filled Start Stop Current Ordering Indication Dosage Frequency Signature Comments Components Source Medication Medication Date Date Medication? Clinician (SIG) Name Name albuterol-i Yes [id number] 1{puff} Inhale 1 Univers pratropium 3-24 Puff 4 ity of 20-100 00:00: (four) [place] mcg/actuati 00 times Medical on inhaler daily. Branch Vital Signs Vital Name Observation Time Observation Value Comments Source Systolic blood 2021-05-25 01:13:00 171 mm[Hg] Univer sity of pressure [facility] Diastolic blood 2021-05-25 01:13:00 137 mm[facility]Hg[facility] Heart rate 2021-05-25 01:13:00 111 /min [facility] Body temperature 2021-05-25 01:13:00 37.06 Evelia [facility] Respiratory rate 2021-05-25 01:13:00 20 /min [facility] Body weight 2021-05-25 01:13:00 65.772 kg [facility] BMI 2021-05-25 01:13:00 22.05 kg/m2 [facility] Oxygen saturation in 2021-05-25 01:13:00 98 /min [facility] Arterial blood by [facility] Pulse oximetry Branch Procedures Procedure Date / Time Performed Performing Clinician Jb shakir [id number] 2020-05-31 00:00:00 HUMBERTO [facility] [id number] 2020-05-31 00:00:00 HUMBERTO [facility] [id number] 2020-05-31 00:00:00 [facility] En[facility] Start End Encounter Admission Attending Care Care Encounter Source Date/Time Date/Time Type Type Clinicians Facility Department ID 2021-10-18 Outpatient AdelfolexideirdrePATRICIA [facility] [id number] 13:47:56 [facility] [address] [facility] 2020-07-19 Inpatient Charly Wagner [facility] [id number] [facility] 10:30:00 [id number] [facility] [place] 2020-05-31 Inpatient JAMILAH Ascencio [facility].01 [id number] [facility] 11:44:00 Jennyfer [facility] [place] 2020-05-30 Inpatient JAMILAH Ascencio [facility]. [id number] [facility] 23:00:00 Jennyfer [id number] [facility] [place] 2021-05-24 2021-05-24 Nurse Nurse, Sim [facility] [id number] Univers 20:13:01 20:33:01 Visit [facility] [id number] [facility] 4.2.7.2.686 Dontrell as Dov?Blea [phone] Mo alyssia [address] Medical Office Building 2021-05-24 2021-05-24 Outpatient R [facility] [id number] Univers 20:00:00 20:00:00 [id number] [facility] 2021-05-24 2021-05-24 [facility] [id number] Univers 20:00:00 20:00:[address] [facility] 2020-07-15 2020-07-15 Outpatient Charly Ortiz [facility] [id number] [facility] 10:30:00 10:30:00 [id number] [facility] [place] 2020-05-31 2020-05-31 Outpatient ALEXANDRIA AscencioWU REFE [id number] [facility] 01:51:00 01:51:00 Jennyfer [facility] 2019-12-15 2019-12-15 Emergency [facility] [id number] 15:18:15 17:33:00 Krzysztof [place] [id number] [place] 4.2.7.2.686 [place] [id number] 2019-12-15 2019-12-15 Emergency X [facility] ERT [id number] Univers 15:18:15 17:33:00 KRZYSZTOF lemos [facility] 2019-12-15 2019-12-15 Office Pob1, Acute [facility] [id number] 14:07:20 14:27:20 Visit [facility] [id number] [place] 4.2.7.2.686 [facility] [id number] nal 044 Office Building One 2019-12-15 2019-12-15 Outpatient Janice NITO, [facility] [id number] Univers 14:20:00 14:20:00 KYLE lemos of [facility] Results Test Description Test Time Test Comments Results Result Comments Source UTERUS,OTHER THAN PROLAPSE/KISHA 2020-07-20 16:48:00 Test Item Value Reference Range Interpretation Comme nts UTERUS,OTHER RUN THAN DATE: 07/21/20 [facility] PAGE 1 RUN PROLAPSE/KISHA TIME: 818 Specimen Inquiry RUN USER: INTERFACE (test code = UTERUSOTH) SHERYL ENT: VIDA ZAMORA LOC: SHAKILA U #: [id number] AGE/SX: 50/F ROOM: [facility] RE07/19/20REG DR: Charly Ortiz III, MD : 74 BED: A DIS: 07/19/20 STATUS: DIS Vale TLOC: SPEC #: [id number] R INSTRUCTOR PSYCHIATRIC AIDE: 07/19/20 STATUS: CALEB REQ #: [id number] CARMINE: DR: Charly Ortiz III, MD ENTERED: 07/19/20 SP TYPE: [facility] DR: Zara Dhillon MD ORDERED: LEVEL V SURGICA CODES: [id number] - UTERUS, NOS COPIES TO: Zara Concepcion MD [address] [facility] [address] [place] [address] [email or web address] Charly Ortiz III, MD [address] [facility] [address] [place] [address] PROCEDURES: LEVEL V SURGICA (Incomplete) TISSUES: UTERUS, [...] tube - benign paratubal cyst CPT code(s): 69353 [facility]/wpd CONTINUED ON NEXT PAGE RUN DATE: 07/21/20 [facility] PAGE 2 RUN TIME: 818 Specimen Inquiry RUN USER: INTERFACE SPEC #: [id number] PATIENT: VIDA ZAMORA #[id number] (Continued) ------- GROSS DESCRI PTION ANATOMIC SOURCE [...] END OF REPORT COVID 19 Asymptomatic IH [id number] 18:15:00 Test Item Value Reference Range Interpretation [...] and/o r diagnosis of CO VID-19 under Zpsdnuh86 4(b)(1) of the Act, 21 U.S .C. 360bbb-3(b)(1), unless theauthorizatio n is terminated or r evoked sooner. URINALYSIS [id number] 12:52:00 Test Item Value Reference Range Interpretation [...] 2 (test NONREACTIVE NONREACTIVE Done by N[facility]a [facility] [employer] code = [id number]) 4th Gen HIV Ag/Ab Combo Screen IS CONSENT FORM SIGNED FOR HIV TESTING? YHCG SERUM [id number] 11:30:00 Test Item Value Reference Range Interpretation Comments HCG SERUM QUAL (test code = HCGQL) NEGATIVE CBC W/AUTO [id number] 11:28:00 Test Item Value Reference Range Interpretation [...] (test NORMAL NORMAL code = PLTMR) [id number] 12:44:00 Test Item Value Reference Range Interpretation Comments CA 19-9 (test code = CA19) 6.0 Comments to Apparatus Cleaner: large pelvic massCA [id number] 07:17:00 Test Item Value Reference Range Interpretation Comments CA 19-9 (test 6.0 U/mL 0-35 [facility] code = CA19) Electrochemilum inescence Immunoassay(ECL IA)Values obtained with d ifferent assay methods or kits cannotbe used interchangeably . Results cannot be interpreted asabsolute evidence of the presence or absence of malignantdiseas e.Performed At: [facility] [place], [place] [id number] ra Dashawn HODGES Ph:[phone] FLUID,[id number] 18:03:00 RUN DATE: 06/03/20 [facility] PAGE 1 RUN TIME: 817 Specimen Inquiry RUN USER: INTERFACE PATIENT: VIDA ZAMORA [facility] #: [id number] AGE/SX: 50/F ROOM: [facility] RE05/31/20REG DR: Jennyfer Ascencio MD : 74 BED: A DIS: 06/01/20 STATUS: DIS IN TLOC: SPEC #: [id number] RECD: 05/31/20 STATUS: CALEB REReena #: [id number] CARMINE: 05/31/20- SUBM DR: Jennyfer Ascencio MD ENTERED: 05/31/20 SP TYPE: ZEUS MENDOZA DR: Ladarius Carrillo MD ORDERED: CYTOLOGY/SACCOM CODES: [id number] - OVARY, NOS COPIES TO: Jennyfer Ascencio MD [address] [place] [address] Ladarius Carrillo MD [address] [place] [address] [address] [place], [place] PROCEDURES: CYTOLOGY/SACCOM (Incomplete) TISSUES: OVARY, NOS - LEFT OVARIAN CYST FLUID CLINICAL HISTORY Not provided (kr) FINAL DIAGNOSIS Left ovarian cyst fluid (cytospins): - no malignant cells identified CPT code(s): 83205 [facility] GROSS DESCRIPTION The specimen is received in a container, labeled with the patient'sname and designated "left ovarian cyst fluid" and consists of approximately 30 ml of yellow liquid. Two cytospins are made. No cell block is prepared. ascencion/bebeto 05/31/20 CONTINUED ON NEXT PAGE RUN DATE: 06/03/20 [facility] PAGE 2 RUN TIME: 817 Specimen Inquiry RUN USER: INTERFACE SPEC #: [id number] PATIENT: VIDA ZAMORA #[id number] (Continued) MICROSCOPIC DESCRIPTION COMMENT: The corresponding surgical pathology [id number] showed: Endometrial polyp, curettage: - raresmall groups of atypical squamous cells suspicious for dysplasia/high- grade squamous intraepithelial neoplasia - rare small fragments of benign superficial endometrium Left ovarian cyst, fallopian tube and ovary, salpingo-oophorectomy: - fallopian tube - no significant pathologic alteration - ovary - benign surface epithelial inclusion cyst, 11 cm (collapsed) [facility] /wpd Signed Mai Schmitt MD 06/02/20 1803 END OF REPORT ENDOMETRIUM,[id number] 15:10:00 RUN DATE: 06/02/20 [facility] PAGE 1 RUN TIME: 1343 Specimen Inquiry RUN USER: INTERFACE PATIENT: VIDA ZAMORA LOC: SHAKILA U #: [id number] AGE/SX: 50/F ROOM: [facility] RE05/31/20REG DR: Jennyfer Ascencio MD : 74 BED: A DIS: 06/01/20 STATUS: DIS IN TLOC: SPEC #: [id number] RECD: 05/31/20-1250 STATUS: CALEB PAZ #: [id number] CARMINE: 05/31/20- SUBM DR: Jennyfer Ascencio MD ENTERED: 05/31/20-1251 SP TYPE: ENDOMETBX OTHR DR: Ladarius Carrillo MD ORDERED: LEVEL IV/2 CODES: [id number] - ENDOMETRIUM, NO [id number] - OVARY, NOS COPIES TO: Jennyfer Skelton MD [address] [place] [address] Ladarius Carrillo MD [address] [place] [address] [address] [place] [address] PROCEDURES: LEVEL IV (Incomplete) TISSUES: ENDOMETRIUM, NOS [...] epithelial inclusion cyst, 11 cm (collapsed) CPT: 14799 x2, 06670-66, 14886-43 ls/wpd CONTINUED ON NEXT PAGE RUN DATE: 06/02/20 [facility] PAGE 2 RUN TIME: 1343 Specimen Inquiry RUN USER: INTERFACE SPEC #: [id number] PATIENT: VIDA ZAMORA #[id number] (Continued) GROSS DESCRIPTION ANATOMIC SOURCE OF TISSUE [...] and thin. No ovarian tissue is identified. Body Specialist sections are submitted in B1 through B7 (B1 contains the entire fimbriae andone cross-section of tube and cyst wall). nancy/bebeto 05/31/20 MICROSCOPIC DESCRIPTION The following technical components were performed at [facility] [place], [address] [facility],[address], [place] [address]. The interpretation is provided by [facility], [address], [place] [address]. Controls received from [facility] stained appropriately. INTERP RETATION: Block A1- p16: Positive Ki-67: Focally positive Signed Mai Schmitt MD 06/01/20 1510 END OF REPORT CBC W/AUTO [id number] 07:02:00 Test Item Value Reference Range Interpretation [...] (test NORMAL NORMAL code = PLTMR) CA [id number] 18:39:00 Test Item Value Reference Range Interpretation Comments CA 125 (test code = CA125) < 5.5 Units/mL 0-35.0 N COMPREHENSIVE METABOLIC [id number] 18:39:00 Test Item Value Reference Range Interpretation [...] units/L 46-116 N code = ALKP) AG [id number] 18:39:00 Test Item Value Reference Range Interpretation Comments AG CARCINOEMBRYONIC (test code = 0.52 ng/mL 0.0-3.00 CEA) CA [id number] 18:39:00 Test Item Value Reference Range Interpretation Comments CA 125 (test code = CA125) <5.5 Units/mL 0-35.0 AG [id number] 18:39:00 Test Item Value Reference Range Interpretation Comments AG CARCINOEMBRYONIC (test code = 0.52 ng/mL 0.0-3.00 N CEA) HCG [id number] 01:59:00 Test Item Value Reference Range Interpretation [...] SHOULD BE CONSI DERED NEGATIVE COMPREHENSIVE METABOLIC [id number] 01:50:00 Test Item Value Reference Range Interpretation [...] units/L 46-116 N code = ALKP) AG [id number] 01:50:00 Test Item Value Reference Range Interpretation Comments AG CARCINOEMBRYONIC (test code = CEA) CA [id number] 01:50:00 Test Item Value Reference Range Interpretation Comments CA 125 (test code = CA125) COVID 19 Asymptomatic IH [id number] 01:50:00 Test Item Value Reference Range Interpretation [...] and/o r diagnosis of CO VID-19 under Stiamnr68 4(b)(1) of the Act, 21 U.S .C. 360bbb-3(b)(1), unless theauthorizatio n is terminated or r evoked sooner. UR HCG [id number] 01:28:00 Test Item Value Reference Range Interpretation [...] 48 hours later and tested. CBC W/AUTO [id number] 01:21:00 Test Item Value Reference Range Interpretation [...]
[2022-01-16] MEDS ORDERED: METOCLOPRAMIDE 10 MG/2mL INJ ONE (14:44)
[2022-01-16 14:45] LABS: Absolute Lymphocytes (CBC) 3.5 K/uL (0.7-4.9); Hematocrit 40.2 % (36.0-45.0); MPV 8.2 fL (7.6-11.3); RBC Red Blood Cell Count 4.01 M/uL (3.86-4.86)
[2022-01-16] MEDS ORDERED: FAMOTIDINE 20 MG/2 ML VIAL IV ONE (14:45)
[2022-01-16] MEDS ORDERED: DIPHENHYDRAMINE 50 MG/ML VIAL ONE (14:45)
[2022-01-16] MEDS ORDERED: ONDANSETRON 4 MG/2 ML VIAL ONE (14:45)
[2022-01-16] MEDS ORDERED: NA CHLORIDE 0.9% 1,000 ML ONE (14:45)
[2022-01-16] MEDS ORDERED: NA CHLORIDE 0.9% 100 ML IV ONE (14:45)
[2022-01-16 15:00] LABS: Albumin 4.1 g/dL (3.4-5.0); Bilirubin Total 0.2 mg/dL (0.2-1.0); Protein, Total 8.1 g/dL (6.4-8.2)
--- NOTE | 2022-01-16 15:37 | RAD REPORT ---
EXAM DESCRIPTION: CT - Head Brain Wo Cont - 01/16/2022 3:28 pm CLINICAL HISTORY: Headache, sudden, severe COMPARISON: HEAD BRAIN W O CONTRAST dated 07/03/2009; HEAD BRAIN W O CONTRAST dated 05/27/2009; Abdome n Pelvis W Contrast dated 01/16/2022 TECHNIQUE: All CT scans are performed using dose optimization technique as appropriate and may inclu de automated exposure control or mA/KV adjustment according to patient size. FINDINGS: No intracranial hemorrhage, hydrocephalus or extra-axial fluid collection.No areas of brai n edema or evidence of midline shift. Trace right mastoid fluid. The calvarium is intact. IMPRESSION: No acute intracranial abnormality.
--- NOTE | 2022-01-16 15:44 | RAD REPORT ---
EXAM DESCRIPTION: CTAbdomen Pelvis W Contrast - 01/16/2022 3:29 pm CLINICAL HISTORY: LLQ abdominal pain COMPARISON: Abdomen Pelvis W Contrast dated 12/20/2021; CT ABD PELVIS W CONTRAST dated 05/27/2009 TECHNIQUE: CT of the abdomen and pelvis was performed. All CT scans are performed using dose optimization technique as appropriate and may include automated exposure control or mA/KV adjustment according to patient size. FINDINGS: Lower chest: No acute abnormality. Liver: Hepatic steatosis. Biliary: No biliary ductal dilatation. Stomach: No significant focal abnormality. Duodenum: No significant focal abnormality. Pancreas: No significant abnormality. Spleen: No significant abnormality. Adrenal: No suspicious lesions. Kidney/ureter: No hydronephrosis. Several renal calculi are noted bilaterally. Too small to character ize and/or benign appearing renal lesions are noted. Retroperitoneum: No retroperitoneal adenopathy. Vascular: No aneurysm. Bowel: Prior appendectomy. No bowel obstruction.. Peritoneum: No ascites or free air. Bladder: Decompressed bladder Reproductive: No adnexal masses. Bones: No acute fracture. Other: n/a IMPRESSION: No acute intra-abdominal or pelvic finding. Bilateral nonobstructive nephrolithiasis.
[2022-01-16 16:00] LABS: Urine Blood 2+ (Negative); Urine Glucose Negative (Negative); Urine Protein Negative (Negative); Urine Specific Gravity 1.015 (1.005-1.030)
[2022-01-16 16:16] LABS: Urine Bacteria >50 /HPF (<20); Urine RBC <5 /HPF (NONE SEEN)
--- NOTE | 2022-01-16 16:49 | ER ---
Nurse's Notes [facility] Name: Kira Last Age: 51 yrs Sex: Female : 1970 Arrival Date: 01/16/2022 Time: 13:24 Bed 5 Private MD: Diagnosis: UTI/ Urinary tract infection, site not specified;Headache;Nausea with vomiting, unspecified Presentation: 01/16 13:44 Chief complaint: Patient states: headache with N/V x 3 days; stated "Yarely never had a vg1 seizure before and I think I had one" Pt mother stated 'she was shaking really bad'. Coronavirus screen: Vaccine status: Patient reports being unvaccinated. Client denies travel out of the [place] in the last 14 days. Ebola Screen: Patient denies exposure to infectious person. Patient denies travel to an Ebola-affected area in the 21 days before illness onset. Initial Sepsis Screen: Does the patient meet any 2 criteria? No. Patient's initial sepsis screen is negative. Does the patient have a suspected source of infection? No. Patient's initial sepsis screen is negative. Risk Assessment: Do you want to hurt yourself or someone else? Patient reports no desire to harm self or others. Onset of symptoms was January 13, 2022. 13:44 Method Of Arrival: Wheelchair vg1 13:44 Acuity: SATNAM 3 vg1 Triage Assessment: 13:45 Headache History: The patient has had previous headaches and this one is similar to vg1 previous episodes. General: Appears uncomfortable, Behavior is calm, cooperative. Pain: Pain currently is 7 out of 10 on a pain scale. Pain began 2-3 days ago. Also complains of nausea. Neuro: Level of Consciousness is awake, alert, obeys commands, Oriented to person, place, time, situation. Respiratory: Airway is patent Respiratory effort is even, unlabored. Historical: - Allergies: 13:45 No Known Allergies; vg1 - Home Meds: 13:45 None [Active]; vg1 - PMHx: 13:45 None; vg1 - PSHx: 13:45 Appendectomy; Hysterectomy; vg1 - Immunization history:: Client reports having NOT received the Covid vaccine. - Social history:: Smoking status: Patient reports the use of cigarette tobacco products, smokes one-half pack cigarettes per day. Screenin:16 Abuse screen: Denies threats or abuse. Denies injuries from another. Nutritional ph screening: No deficits noted. Tuberculosis screening: No symptoms or risk factors identified. Fall Risk None identified. Assessment: 13:45 General: SEE TRIAGE NOTE. bp 15:19 Reassessment: While starting IV pt is noted to have episodes of jerking movements to ph both hands, teeth clinched, after shaking ends pt does not appear post-ictal, able to speak and follow commands during episode. General: Appears in no apparent distress. uncomfortable, Behavior is calm, cooperative, appropriate for age. Pain: Complains of pain in forehead and top of head. Pain: Complains of pain in abdomen. Neuro: Level of Consciousness is awake, alert, obeys commands, Oriented to person, place, time, situation, Reports headache. Cardiovascular: Capillary refill < 3 seconds in bilateral fingers Patient's skin is warm and dry. Respiratory: Airway is patent Respiratory effort is even, unlabored. GI: Reports nausea, vomiting. Derm: Skin is intact, is healthy with good turgor, Skin is pink, warm \\T\\ dry. Musculoskeletal: Circulation, motion, and sensation intact. Range of motion: intact in all extremities. 15:23 Reassessment: Pt taken to CT via wheelchair. ph 17:01 Reassessment: Patient appears in no apparent distress at this time. Patient and/or ph family updated on plan of care and expected duration. Pain level reassessed. Patient is alert, oriented x 3, equal unlabored respirations, skin warm/dry/pink. Patient states feeling better. 17:23 Reassessment: PT D/C HOME AMBULATORY WITH FAMILY, DX WITH UTI AND HEADACHE. bp Vital Signs: 13:44 BP 156 / 98; Resp 18; Temp 98.0; Pulse Ox 100% ; Weight 63.5 kg; Height 5 ft. 5 in. vg1 (165.10 cm); Pain 7/10; 15:00 BP 134 / 98; Pulse 94; Resp 17; Pulse Ox 98% ; bp 16:00 BP 138 / 87; Pulse 91; Resp 18; Pulse Ox 98% on R/A; ph 17:00 BP 135 / 98; Pulse 94; Resp 17; Pulse Ox 98% ; bp 13:44 Body Mass Index 23.30 (63.50 kg, 165.10 cm) vg1 ED Course: 13:24 Patient arrived in ED. as 13:33 Abdiel Thompson PA is PHCP. cp 13:33 Jacek Claros MD is Attending Physician. cp 13:45 Triage completed. vg1 13:47 Arm band placed on. vg1 14:25 Vincent Mcfadden, ANA CRISTINA is Primary Nurse. bp 14:34 Initial lab(s) drawn, by me, sent to lab. aa5 14:34 Missed attempt(s): 20 gauge in right antecubital area. Bleeding controlled, band aid aa5 applied, catheter tip intact. 14:40 Missed attempt(s): 22 gauge in left antecubital area. Bleeding controlled, band aid aa5 applied, catheter tip intact. 15:05 Inserted saline lock: 22 gauge in right antecubital area, using aseptic technique. ph 15:17 Patient has correct armband on for positive identification. Bed in low position. Call ph light in reach. Side rails up X 1. Pulse ox on. NIBP on. 15:29 CT Head Brain wo Cont In Process Unspecified. EDMS 15:30 CT Abd/Pelvis - IV Contrast Only In Process Unspecified. EDMS 17:24 No provider procedures requiring assistance completed. IV discontinued, intact, bp bleeding controlled, No redness/swelling at site. Pressure dressing applied. Administered Medications: 15:08 Drug: NS 0.9% 1000 ml Route: IV; Rate: 1 bolus; Site: right antecubital; ph 17:00 Follow up: Response: No adverse reaction; IV Status: Completed infusion; IV Intake: ph 1000ml 15:08 Drug: Pepcid (famotidine) 20 mg Route: IVP; Site: right antecubital; ph 17:00 Follow up: Response: No adverse reaction ph 15:09 Drug: Zofran (Ondansetron) 4 mg Route: IVP; Site: right antecubital; ph 17:00 Follow up: Response: No adverse reaction ph 15:10 Drug: Benadryl (diphenhydrAMINE) 25 mg Route: IVP; Site: right antecubital; ph 17:00 Follow up: Response: No adverse reaction ph 15:12 Drug: Reglan (metoCLOPramide) 10 mg Route: IVP; Site: right antecubital; ph 17:00 Follow up: Response: No adverse reaction; Pain is decreased; Vomiting decreased ph 16:59 Drug: Rocephin - (cefTRIAXone) 1 grams Route: IVPB; Infused Over: 30 mins; Site: right ph antecubital; 17:23 Follow up: IV Status: Completed infusion; IV Intake: 100ml bp Intake: 17:00 IV: 1000ml; Total: 1000ml. ph 17:23 IV: 100ml; Total: 1100ml. bp Outcome: 16:49 Discharge ordered by MD. cp 17:24 Discharged to home ambulatory, with family. bp 17:24 Condition: stable 17:24 Discharge instructions given to patient, Instructed on discharge instructions, follow up and referral plans. medication usage, Demonstrated understanding of instructions, follow-up care, medications, Prescriptions given X 3. 17:25 Patient left the ED. bp Signatures: Dispatcher [employer] Bhavana Betancourt Audri, RN RN aa5 Lisa Jasso RN RN Abdiel Contreras PA PA cp Peltier, Brian, RN RN Ondina Verdugo RN RN vg1
--- NOTE | 2022-01-16 16:49 | EDPHYS ---
Physician Documentation [facility] Name: Kira Last Age: 51 yrs Sex: Female : 1970 Arrival Date: 01/16/2022 Time: 13:24 Bed 5 Private MD: ED Physician Jacek Claros HPI: 01/16 13:45 This 51 yrs old Female presents to ER via Unassigned with complaints of Headache, cp Nausea/Vomiting. 13:45 The patient complains of pain to the top of head and forehead. Onset: The cp symptoms/episode began/occurred 2 day(s) ago. 13:45 Severity of symptoms: in the emergency department the pain a " 7" out of "10". cp 13:45 Headache History: Other history of migraines in the past. cp Historical: - Allergies: 13:45 No Known Allergies; vg1 - Home Meds: 13:45 None [Active]; vg1 - PMHx: 13:45 None; vg1 - PSHx: 13:45 Appendectomy; Hysterectomy; vg1 - Immunization history:: Client reports having NOT received the Covid vaccine. - Social history:: Smoking status: Patient reports the use of cigarette tobacco products, smokes one-half pack cigarettes per day. ROS: 13:50 Constitutional: Negative for body aches, chills, fever. cp 13:50 Eyes: Negative for injury, pain, redness, and discharge. cp 13:50 Cardiovascular: Negative for chest pain, edema, palpitations. 13:50 Respiratory: Negative for cough, shortness of breath, wheezing. 13:50 Abdomen/GI: Positive for abdominal pain, nausea and vomiting, Negative for diarrhea, constipation, hematemesis, black/tarry stool, rectal bleeding. 13:50 Neuro: Positive for headache, Negative for altered mental status. cp 13:50 All other systems are negative. Exam: 13:55 Constitutional: The patient appears in no acute distress, alert, awake, cp non-diaphoretic, non-toxic, well developed, well nourished, uncomfortable. 13:55 Head/Face: Normocephalic, atraumatic. cp 13:55 Eyes: Periorbital structures: appear normal, Pupils: equal, round, and reactive to cp light and accomodation, Extraocular movements: intact throughout, Conjunctiva: normal, no exudate, no injection, Sclera: no appreciated abnormality, Lids and lashes: appear normal, bilaterally. 13:55 ENT: External ear(s): are unremarkable, Ear canal(s): are normal, clear, TM's: dullness, bilaterally, Nose: is normal, Mouth: Lips: moist, Oral mucosa: pink and intact, moist, Posterior pharynx: Airway: no evidence of obstruction, patent, swelling, is not appreciated, erythema, is not appreciated, exudate, is not appreciated. 13:55 Neck: ROM/movement: is normal, is supple, without pain, no range of motions cp limitations, no nuchal rigidity. 13:55 Chest/axilla: Inspection: normal. 13:55 Cardiovascular: Rate: normal, Rhythm: regular, Edema: is not appreciated, JVD: is not appreciated. 13:55 Respiratory: the patient does not display signs of respiratory distress, Respirations: normal, no use of accessory muscles, no retractions, labored breathing, is not present, Breath sounds: are clear throughout, no decreased breath sounds, no stridor, no wheezing. 13:55 Abdomen/GI: Inspection: abdomen appears normal, Bowel sounds: active, all quadrants, Palpation: soft, in all quadrants, moderate abdominal tenderness, in the epigastric area and left lower quadrant, rebound tenderness, is not appreciated, involuntary guarding, is not appreciated. 13:55 Back: CVA tenderness, is absent. 13:55 Skin: no rash present. 13:55 Neuro: Orientation: to person, place \\T\\ time. Mentation: is normal, Cerebellar function: is grossly normal, Motor: moves all fours, strength is normal, Sensation: is normal. Vital Signs: 13:44 BP 156 / 98; Resp 18; Temp 98.0; Pulse Ox 100% ; Weight 63.5 kg; Height 5 ft. 5 in. vg1 (165.10 cm); Pain 7/10; 15:00 BP 134 / 98; Pulse 94; Resp 17; Pulse Ox 98% ; bp 16:00 BP 138 / 87; Pulse 91; Resp 18; Pulse Ox 98% on R/A; ph 17:00 BP 135 / 98; Pulse 94; Resp 17; Pulse Ox 98% ; bp 13:44 Body Mass Index 23.30 (63.50 kg, 165.10 cm) vg1 MDM: 13:42 Patient medically screened. 14:00 Differential diagnosis: hypoglycemia, hyponatremia, intracerebral hemorrhage, cp meningoencephalitis, migraine, sinusitis, subarachnoid bleed, temporal arteritis, tension headache. 16:46 Data reviewed: vital signs, nurses notes, lab test result(s), radiologic studies, CT cp scan. Counseling: I had a detailed discussion with the patient and/or guardian regarding: the historical points, exam findings, and any diagnostic results supporting the discharge/admit diagnosis, lab results, radiology results, to return to the emergency department if symptoms worsen or persist or if there are any questions or concerns that arise at home. Response to treatment: the patient's symptoms have markedly improved after treatment, VSS. Patient reports headache and nausea markedly improved, vomiting resolved. Will discharge to home for continued monitoring. 01/16 13:45 Order name: CBC with Diff; Complete Time: 15:57 01/16 15:57 Interpretation: Normal except: MCV 100.3; LEONELA% 38.3; LYM% 54.0. 01/16 13:45 Order name: CMP; Complete Time: 15:57 01/16 15:58 Interpretation: Normal except: GLUC 69; GFR 50; A/G 1.0; GLOB 4.0; AST 41. 01/16 13:45 Order name: Lipase; Complete Time: 15:57 01/16 13:45 Order name: Urine Microscopic Only; Complete Time: 16:17 01/16 16:17 Interpretation: Normal except: UWBC 5-10; UBACT >50. 01/16 16:00 Order name: Urine Dipstick-Ancillary; Complete Time: 16:17 [facility] 01/16 16:41 Interpretation: Normal except: UKET 1+; UBLD 2+. 01/16 16:19 Order name: Urine Culture [facility] 01/16 13:45 Order name: CT Head Brain wo Cont; Complete Time: 15:57 01/16 13:45 Order name: CT Abd/Pelvis - IV Contrast Only; Complete Time: 15:57 01/16 13:45 Order name: IV Saline Lock; Complete Time: 15:16 01/16 13:45 Order name: Labs collected and sent; Complete Time: 15:16 01/16 13:45 Order name: Urine Dipstick-Ancillary (obtain specimen); Complete Time: 15:43 cp 01/16 13:45 Order name: Urine Test (obtain specimen); Complete Time: 15:43 cp 01/16 16:19 Order name: PO challenge; Complete Time: 16:38 cp Administered Medications: 15:08 Drug: NS 0.9% 1000 ml Route: IV; Rate: 1 bolus; Site: right antecubital; ph 17:00 Follow up: Response: No adverse reaction; IV Status: Completed infusion; IV Intake: ph 1000ml 15:08 Drug: Pepcid (famotidine) 20 mg Route: IVP; Site: right antecubital; ph 17:00 Follow up: Response: No adverse reaction ph 15:09 Drug: Zofran (Ondansetron) 4 mg Route: IVP; Site: right antecubital; ph 17:00 Follow up: Response: No adverse reaction ph 15:10 Drug: Benadryl (diphenhydrAMINE) 25 mg Route: IVP; Site: right antecubital; ph 17:00 Follow up: Response: No adverse reaction ph 15:12 Drug: Reglan (metoCLOPramide) 10 mg Route: IVP; Site: right antecubital; ph 17:00 Follow up: Response: No adverse reaction; Pain is decreased; Vomiting decreased ph 16:59 Drug: Rocephin - (cefTRIAXone) 1 grams Route: IVPB; Infused Over: 30 mins; Site: right ph antecubital; 17:23 Follow up: IV Status: Completed infusion; IV Intake: 100ml bp Disposition: 18:28 Co-signature as Attending Physician, Jacek Claros MD. rn Disposition Summary: 01/16/22 16:49 Discharge Ordered Location: Home cp Problem: new cp Symptoms: have improved cp Condition: Stable cp Diagnosis - UTI/ Urinary tract infection, site not specified cp - Headache cp - Nausea with vomiting, unspecified cp Followup: cp - With: Private Physician - When: 1 - 2 days - Reason: Recheck today's complaints Discharge Instructions: - Discharge Summary Sheet cp - General Headache Without Cause cp - Nausea and Vomiting, Adult cp - Urinary Tract Infection, Adult cp Forms: - Medication Reconciliation Form cp - Thank You Letter cp - Antibiotic Education cp - Prescription Opioid Use cp Prescriptions: - Augmentin 875-125 mg Oral Tablet - take 1 tablet by ORAL route every 12 hours for 7 days; 14 tablet; Refills: 0, cp Product Selection Permitted - Ibuprofen 800 mg Oral Tablet - take 1 tablet by ORAL route every 8 hours As needed take with food; 30 tablet; cp Refills: 0, Product Selection Permitted - promethazine 25 mg Oral Tablet - take 1 tablet by ORAL route every 6 hours As needed; 20 tablet; Refills: 0, cp Product Selection Permitted Signatures: Dispatcher [employer] EDJacek Nagel MD MD rn Hall, Patricia RN RN ph Abdiel Thompson PA PA Ondina Babb RN RN vg1 Vincent Mcfadden RN bp Corrections: (The following items were deleted from the chart) 15:58 15:57 Normal except: GLUC 69; GFR 50. cp cp
[2022-01-16] MEDS ORDERED: CEFTRIAXONE 1000 MG/VIAL ONE (16:54)
[2022-01-16] MEDS ORDERED: NA CHLORIDE 0.9% 50 ML ONE (16:54)
[2022-01-16 19:28] VITALS: TEMP 98
[2022-01-16 19:29] VITALS: O2SAT 98
[2022-01-16 19:35] VITALS: BP 135/98
== END 2022-01-16 17:25 | disposition home or self-care (01) ==
LOC: ER 13:22
DX: N39.0 Urinary tract infection, site not specified (principal); R11.2 Nausea with vomiting, unspecified; F17.210 Nicotine dependence, cigarettes, uncomplicated
CPT/HCPCS: 87088; 85025; 87086; 36415; 83690; 80053; 70450; 74177; Q9967; J2765; J1200; J7030; J2405; J3490; 81003; 81015; 96361; 96365; 96375; 99284

== ENCOUNTER 2023-06-07 09:34 | Emergency (ER) | payer BC ==
--- OUTSIDE RECORDS SUMMARY | 2023-06-07 09:38 | XMS REPORT | Continuity of Care Document ---
:1970 Author Organization [facility] t Address [address] [facility] [address] [place] [address] Care Team Providers Name Role Phone NONE, NONE Primary Care Physician Unavailable Anitra Dumont Attending Clinician Unavailable Cathy Medrano Attending Clinician Unavailable David Ortiz Attending Clinician Unavailable Jennyfer Ascencio Attending Clinician Unavailable Paul Attending Clinician Unavailable DR DAVE FIERRO Attending Clinician Unavailable HARINI BECKER Attending Clinician Unavailable Harini Mullins Attending Clinician Unknown, Attending Attending Clinician Unavailable Doctor Unassigned, [place] Attending Clinician Unavailable [facility] Attending Clinician Unavailable BLAYNE MILLER Attending Clinician Unavailable Blayne Miller DO Attending Clinician Pob1, [facility] Attending Clinician Unavailable KYLE BEAUCHAMP Attending Clinician Unavailable Jennyfer Ascencio Admitting Clinician Unavailable Paul Admitting Clinician Unavailable DR DAVE FIERRO Admitting Clinician Unavailable BLAYNE MILLER Admitting Clinician Unavailable Payers Payer Name Policy Type Policy Number Effective Date Expiration Date S amb[place] [id number] 2022 00:00:00 045 [id number] 2022 00:00:00 [facility] - [id number] 2021 00:00:00 OUT OF STATE Problems Condition Condition Condition Status Onset Resolution Last Treating Co mments Source Name Details Category Date Date Treatment Clinician Date Initial Initial Problem Active [place] insomnia Insomnia 2-23 Commun i 00:00: ty 00 [facility] Anxiety Anxiety Problem Active [place] 2-23 Communi 00:00: ty 00 [facility] Generalize Generalize Problem Active S [place] anxiety d Anxiety 2-23 Comm uni disorder Disorder 00:00: ty 00 [facility] 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 Anxiety 2-23 Communi and and 00:00: ty depressive Depressive 00 Ho spita disorder Disorder l Clinics No known No known Disease Unive rs active active ity of problems problems [facility] Allergies, Adverse Reactions, Alerts Allergy Allergy Status Severity Reaction(s) Onset Inactive Treating Comm ents Source Name Type Date Date Clinician Meperidi Propensi Active Unknown - Uni vers ne ty to See comments 05-24 ity of adverse 00:00: [place] reaction 00 [facility] Prometha Propensi Active Unknown - Uni vers zisima ty to See comments 05-24 ity of adverse 00:00: [place] reaction 00 [facility] MEPERIDI DRUG Active Unknown-Cmnt 0 Un steffany NE INGREDI 05-24 ity of 00:00: [place] 00 [facility] PROMETHA DRUG Active Unknown-Cmnt 0 Un steffany ZINE INGREDI 05-24 ity of 00:00: [address] No Known DA Active U 2019-0 [facility] Allergie 05-30 [facility] 00:00: [address] No Known DA Active U 2020-0 [facility] Allergie 05-30 [facility] 00:00: [address] NO KNOWN Drug Active Univers ALLERGIE Class ity of S [facility] No Known DA Active [facility] Allergie Neopit s Social History Social Habit Start Date Stop Date Quantity Comments Source History of Smokes tobacco University of tobacco use daily [facility] Exposure to 2022-06-07 2022-06-17 Not sure University of SARS-CoV-2 00:00:00 10:30:00 [facility] (event) [place] Tobacco use and 2021-05-24 2021-05-24 Smokeless tobacco Un iversity of exposure 00:00:00 00:00:00 non-user [facility] Sex Ass[birth year] At [birth year] Universit y of 00:00:00 00:00:00 [facility] Smoking Status Start Date Stop Date Source Light Tobacco Smoker Denise [facility] Smokes tobacco daily 2021-05-24 00:00:00 Univers ity [facility] Medications Ordered Filled Start Stop Current Ordering Indication Dosage Frequency Signature Comments Components Source Medication Medication Date Date Medication? Clinician (SIG) Name Name sulfamethox sulfamethox No sulfametho Denise azole 800 azole 800 4-20 xazole 800 Communi mg-trimetho mg-trimetho 00:00: mg-trimeth ty prim 160 mg prim 160 mg 00 oprim 160 Hospita tablet tablet mg tablet l [facility] ondansetron Yes [id number] 4mg Take 1 Univers 4 mg 9-25 tablet by ity of disintegrat 00:00: mouth [place] ing tablet 00 every 8 Medica l (eight) Branch hours as needed for Nausea and Vomiting (N/V). ondansetron Yes [id number] 4mg Take 1 Univers 4 mg 9-25 tablet by ity of disintegrat 00:00: mouth [place] ing tablet 00 every 8 Medica l (eight) Branch hours as needed for Nausea and Vomiting (N/V). ciprofloxac 2021- No [id number] 500mg Take 1 Univers in HCl 500 9-25 10-03 tablet by ity of mg tablet 00:00: 04:59 mouth [place] 00 :00 every 12 Medical (twelve) Branch hours for 7 days. ciprofloxac 2021- No [id number] 500mg Take 1 Univers in HCl 500 9-25 10-03 tablet by ity of mg tablet 00:00: 04:59 mouth [place] 00 :00 every 12 Medical (twelve) Branch hours for 7 days. albuterol-i Yes [id number] 1{puff} Inhale 1 Univers pratropium 3-24 Puff 4 ity of 20-100 00:00: (four) [place] mcg/actuati 00 times Medical on inhaler daily. Branch albuterol-i Yes [id number] 1{puff} Inhale 1 Univers pratropium 3-24 Puff 4 ity of 20-100 00:00: (four) [place] mcg/actuati 00 times Medical on inhaler daily. Branch albuterol-i Yes [id number] 1{puff} Inhale 1 Univers pratropium 3-24 Puff 4 ity of 20-100 00:00: (four) [place] mcg/actuati 00 times Medical on inhaler daily. [place] albuterol-i Yes [id number] 1{puff} Inhale 1 Univers pratropium 3-24 Puff 4 ity of 20-100 00:00: (four) [place] mcg/actuati 00 times Medical on inhaler daily. [place] hydroxyzine hydroxyzine No 1 Q1D hydroxyzin [place] HCl 25 mg HCl 25 mg e HCl 25 C ommuni tablet Take tablet Take mg tablet ty 1 tablet 1 tablet Take 1 Hospi ta every day every day tablet l by oral by oral every day Clin ics route at route at by oral bedtime. bedtime. route at NEEDED NEEDED bedtime. NEEDED Lexapro 10 Lexapro 10 No 1 Q1D Lexapro 10 [place] mg tablet mg tablet mg tablet Communi Take 1 Take 1 Take 1 ty tablet tablet tablet Hospita every day every day every day l by oral by oral by oral Clinic s route. route. route. metoprolol metoprolol No metoprolol [place] succinate succinate succinate Communi ER 25 mg ER 25 mg ER 25 mg ty tablet,exte tablet,exte tablet,ext Hospita nded nded ended l release 24 release 24 release 24 Clinics hr hr hr metronidazo metronidazo No metronidaz [place] le 250 mg le 250 mg ole 250 mg Communi tablet tablet tablet ty [facility] sucralfate sucralfate No sucralfate [place] 1 gram 1 gram 1 gram Communi tablet tablet tablet [facility] Lexapro 20 Lexapro 20 No 1 Q1D Lexapro 20 [place] mg tablet mg tablet mg tablet Communi Take 1 Take 1 Take 1 ty tablet tablet tablet Hospita every day every day every day l by oral by oral by oral Clinic s route in route in route in the the the morning. morning. morning. metoprolol metoprolol No metoprolol [place] succinate succinate succinate Communi ER 25 mg ER 25 mg ER 25 mg ty tablet,exte tablet,exte tablet,ext Hospita nded nded ended l release 24 release 24 release 24 Clinics hr hr hr metronidazo metronidazo No metronidaz [place] le 250 mg le 250 mg ole 250 mg Communi tablet tablet tablet [facility] sucralfate sucralfate No sucralfate [place] 1 gram 1 gram 1 gram Communi tablet tablet tablet [facility] trazodone trazodone No 1 trazodone [place] 50 mg 50 mg 50 mg Communi tablet Take tablet Take tablet ty 1 tablet as 1 tablet as Take 1 Hospita needed by needed by tablet as l oral route oral route needed by Clinics at bedtime. at bedtime. oral route at bedtime. ciprofloxac ciprofloxac No ciprofloxa [place] in 500 mg in 500 mg [place] 500 mg Communi tablet tablet tablet [facility] escitalopra escitalopra No escitalopr [place] m 10 mg m 10 mg am 10 mg Commu ni tablet tablet tablet [facility] escitalopra escitalopra No escitalopr [place] m 20 mg m 20 mg am 20 mg Commu ni tablet Take tablet Take tablet ty 1 tablet 1 tablet Take 1 Hospi ta every day every day tablet l by oral by oral every day Clin ics route in route in by oral the the route in morning. morning. the morning. metoprolol metoprolol No metoprolol [place] succinate succinate succinate Communi ER 25 mg ER 25 mg ER 25 mg ty tablet,exte tablet,exte tablet,ext Hospita nded nded ended l release 24 release 24 release 24 Clinics hr hr hr sucralfate sucralfate No sucralfate [place] 1 gram 1 gram 1 gram Communi tablet tablet tablet [facility] trazodone trazodone No trazodone [place] 50 mg 50 mg 50 mg Communi tablet Take tablet Take tablet ty 1 tablet as 1 tablet as Take 1 Hospita needed by needed by tablet as l oral route oral route needed by Clinics at bedtime. at bedtime. oral route at bedtime. Vital Signs Vital Name Observation Time Observation Value Comments Source BP Diastolic 2023-01-10 00:00:00 88 mm[Hg] [facility] s Height 2023-01-10 00:00:00 64 [in_i] [facility] s BMI (Body Mass 2023-01-10 00:00:00 23.6 kg/m2 [facility] s BP Systolic 2023-01-10 00:00:00 138 mm[Hg] [facility] s Body Weight 2023-01-10 00:00:00 2195.2 [oz_av] [facility] s BP Diastolic 2022-12-12 00:00:00 84 mm[Hg] [facility] s Height 2022-12-12 00:00:00 64 [in_i] [facility] s BP Systolic 2022-12-12 00:00:00 113 mm[Hg] [facility] s Body Weight 2022-12-12 00:00:00 2124.8 [oz_av] [facility] s BP Diastolic 2022-11-15 00:00:00 99 mm[Hg] [facility] s Height 2022-11-15 00:00:00 64 [in_i] [facility] s BP Systolic 2022-11-15 00:00:00 144 mm[Hg] [facility] s Body Weight 2022-11-15 00:00:00 2147.2 [oz_av] [facility] s Height 2022-11-09 10:07:00 162.56 CM Weight 2022-11-09 10:07:00 63.5 KG Systolic blood 2022-06-17 15:37:00 134 mm[Hg] Univer sity of pressure [facility] Diastolic blood 2022-06-17 15:37:00 100 mm[Hg] Unive rsity of pressure [facility] Heart rate 2022-06-17 15:34:00 93 /min [facility] Body temperature 2022-06-17 15:34:00 37.06 [facility] [place] [facility] 2022-06-17 15:34:00 16 /min [facility] Body height 2022-06-17 15:34:00 167.6 cm [facility] Body weight 2022-06-17 15:34:00 65 kg Universi ty [facility] BMI 2022-06-17 15:34:00 23.13 kg/m2 Universi [facility] Oxygen saturation in 2022-06-17 15:34:00 97 /min University of Arterial blood by [facility] Pulse oximetry Branch Systolic blood 2021-05-25 01:13:00 171 mm[Hg] Univer sity of pressure [facility] Diastolic blood 2021-05-25 01:13:00 137 mm[Hg] Unive rsity of [facility] Heart rate 2021-05-25 01:13:00 111 /min Universi [facility] Body temperature 2021-05-25 01:13:00 37.06 Evelia [place] [facility] Res[facility] rate 2021-05-25 01:13:00 20 /min [facility] Body weight 2021-05-25 01:13:00 65.772 kg Universi [facility] BMI 2021-05-25 01:13:00 22.05 kg/m2 Universi [facility] Oxygen saturation in 2021-05-25 01:13:00 98 /min University of Arterial blood by [facility] Pulse oximetry Branch Procedures Procedure Date / Time Performed Performing Clinician Sourc e INSERTION INFUS DEVC 2022-11-10 00:00:00 [facility] RT [facility] Center POCT URINALYSIS 2022-06-17 15:39:00 [place] o f [facility] ASSIGNMENT OF BENEFITS 2022-06-17 15:30:23 Doctor Unassigned, No [facility] [id number] 2020-05-31 00:00:00 [facility] [id number] 2020-05-31 00:00:00 [facility] [id number] 2020-05-31 00:00:00 [facility] Plan of Care Planned Activity Planned Date Details Comments Source Instructions [facility] Clinics Encounters Start End Encounter Admission Attending Care Care Encounter Source Date/Time Date/Time Type Type Clinicians Facility Department ID 2022-11-02 Outpatient PATRICIA Dumont [facility] [id number] Common 12:22:00 Anitra [id number] [facility] 2022-10-31 Outpatient [facility] [id number] Common 13:23:01 [id number] [facility] 2022-10-09 Outpatient [facility] [id number] Common 13:49:03 [id number] [facility] 2021-10-18 Outpatient Mitchell [facility] [id number] Common 13:47:56 Cathy [id number] [facility] 2020-07-19 Inpatient David Wagner [facility] DAYS [id number] [facility] 10:30:00 [facility] 2020-05-31 Inpatient JAMILAH Ascencio [facility] MEDI.01 [id number] [facility] 11:44:00 Jennyfer 13 [facility] 2023-03-06 2023-03-06 Outpatient L_Pena [facility] [id number] [place] 00:00:00 00:00:00 0614 Commun i ty Hospita [facility] 2023-03-05 2023-03-05 Outpatient L_Pena [facility] [id number] [place] 00:00:00 00:00:00 0613 Commun i ty Hospita l [facility] 2023-01-29 2023-01-29 Outpatient L_Pena [facility] [id number] [place] 00:00:00 00:00:00 0509 Commun i ty Hospita l [facility] 2023-01-10 2023-01-10 Outpatient L_Pena [facility] [id number] [place] 00:00:00 00:00:00 0420 Commun i ty Hospita l [facility] 2023-01-10 2023-01-10 [place]ade[place] [facility] [place] [id number] [place] 00:00:00 00:00:00 Klarissa Laboy APRN, MSN, [facility] ty [facility]: [address], CLINIC [address], [place] [address] , Ph. 2022-12-25 2022-12-25 Outpatient L_Pena [facility] [id number] [place] 00:00:00 00:00:00 0404 Commun i ty Hospita l Clinics 2022-12-12 2022-12-12 Outpatient L_Pena [facility] [id number] [place] 00:00:00 00:00:00 0322 Commun i ty Hospita l Clinics 2022-12-12 2022-12-12 [place]ade[place] [facility] [place] 22 [place] 00:00:00 00:00:00 [place] [facility] [place] GARRETT, MSN, [facility]: [facility] [address] [place] [address], [address] [address] , Ph. 2022-12-11 2022-12-11 Outpatient L_Pena [facility] [id number] [place] 00:00:00 00:00:00 0321 Commun i ty Hospita l Clinics 2022-11-15 2022-11-15 Outpatient L_Antoinea [facility] [id number] [place] 00:00:00 00:00:00 0223 Commun i ty Hospita l Clinics 2022-11-15 2022-11-15 Nadeen [facility] [place] [facility] [place] [id number] [place] 00:00:00 00:00:00 [facility] [place] GARRETT, MSN, [facility]: [facility] [address] [place] [address], CLINIC [address], [place] [address] , Ph. 2022-11-14 2022-11-14 Outpatient L_Pena [facility] [id number] [place] 00:00:00 00:00:00 0222 Commun i ty Hospita l Clinics 2022-11-13 2022-11-13 Outpatient L_Pena [facility] [id number] [place] 00:00:00 00:00:00 0221 Commun i ty Hospita l Clinics 2022-06-17 2022-06-17 Outpatient Janice BECKER [facility] [id number] Univers 10:40:00 11:25:10 [facility] 2022-06-17 2022-06-17 Urgent Harini Becker [facility] [id number] Univers 10:40:00 11:25:10 Care Unknown, [facility] HEALTH [id number] ity of [place] [id number] Dontrell as DOV?BLEA [phone] [address] OFFICE [facility] 2022-06-17 2022-06-17 Orders Doctor DAVID [id number] Univers 00:00:00 00:00:00 Only Unassigned, KESHAWN [id number] ity of [place] [facility] [id number] Dontrell as [phone] [address] 2022-06-17 2022-06-17 [facility] [id number] Univers 00:00:00 00:00:00 [facility] [id number] it y of [place] 4.2.7.2.686 Dontrell as DOV?BLEA [id number] [address] OFFICE [facility] 2021-05-24 2021-05-24 Nurse Nurse, Sim [facility] [id number] Univers 20:13:01 20:33:01 Visit Harini Becker [place] [id number] ity of [place] 4.2.7.2.686 Dontrell as Dov?Blea [phone] [address] Office [facility] 2021-05-24 2021-05-24 Outpatient R ADOLFO [facility] [id number] Univers 20:00:00 20:00:00 HARINI lemos [facility] 2020-05-31 2020-05-31 Outpatient ASHOK Ascencio REFE [id number] [facility] 01:51:00 01:51:00 Jennyfer 07 [facility] 2019-12-15 2019-12-15 Emergency X SINGER NHABY ERT [id number] Univers 15:18:15 17:33:00 BLAYNE canelo [facility] 2019-12-15 2019-12-15 Emergency Singer [facility] [id number] 15:18:15 17:33:00 Blayne Garcia [id number] [place] 4.2.7.2.686 Lee [id number] 2019-12-15 2019-12-15 Office Pob1, Acute [facility] [id number] 14:07:20 14:27:20 Visit Care Clinic Health [id number] Radha 4.2.7.2.686 [facility] [phone] nal 044 Office [address] 2019-12-15 2019-12-15 Outpatient R NITO, [facility] [id number] Univers 14:20:00 14:20:00 KYLE lemos of [facility] Results Test Description Test Time Test Comments Results Result Comments Source GLUCOMETER GLUCOSE- LAB USE ONLY 2022-11-14 20:14:00 Test Item Value Reference Range Interpretation Comme nts GLUCOMETER (test code = GMG) 126 mg/dL 70-100 H CLEANED METERMeter ID: [id number] tor: [id number] ERIBERTO URBINA GLUCOMETER GLUCOSE- LAB USE [id number] 20:13:00 Test Item Value Reference Range Interpretation Comments GLUCOMETER (test code 116 mg/dL 70-100 H CLEANE D METERMeter ID: = GMG) [id number] tor: 4773 ERIBERTO AN DRADE GLUCOMETER GLUCOSE- LAB USE [id number] 10:26:00 Test Item Value Reference Range Interpretation Comments GLUCOMETER (test 98 mg/dL 70-100 CLEANED MET ERDAILY code = GMG) MAINTENANCEMete r ID: [id number] tor: 9738 BRIANNAKMEGAN JONATHAN N GLUCOMETER GLUCOSE- LAB USE [id number] 10:25:00 Test Item Value Reference Range Interpretation Comments GLUCOMETER (test 109 mg/dL 70-100 H CLEANED MET ERDAILY code = GMG) MAINTENANCEMete r ID: [id number] tor: 9738 AMRIKCHIKUTTY JONATHAN N GLUCOMETER GLUCOSE- LAB USE [id number] 20:16:00 Test Item Value Reference Range Interpretation Comments GLUCOMETER (test code 124 mg/dL 70-100 H CLEANE D METERMeter ID: = GMG) [id number] tor: [address] GLUCOMETER GLUCOSE- LAB USE [id number] 20:16:00 Test Item Value Reference Range Interpretation Comments GLUCOMETER (test code 125 mg/dL 70-100 H CLEANE D METERMeter ID: = GMG) [id number] tor: [address] GLUCOMETER GLUCOSE- LAB USE [id number] 08:04:00 Test Item Value Reference Range Interpretation Comments GLUCOMETER (test code = 84 mg/dL 70-100 Mete r ID: GMG) [id number] tor: [id number] CBC WITH MANUAL [id number] 06:50:00 Test Item Value Reference Range Interpretation Comments WBC (test code = WBC) 7.5 10\\S\\3/uL 4.5-11.0 RBC (test code = RBC) 3.44 10\\S\\6/uL 4.20-5.60 L HGB (test code = HBG) 11.9 g/dL 12.0-15.5 L HCT (test code = HCT) 35.1 % 35.0-44.0 MCV (test code = MCV) 102.0 fL 81.0-99.0 H MCH (test code = MCH) 34.6 pg 27.0-31.0 H MCHC (test code = MCHC) 33.9 g/dL 32.0-36.0 RDW (test code = RDW) 13.0 % 11.5-14.5 PLT (test code = PLT) 156 10\\S\\3/uL 130-400 MPV (test code = MPV) 10.3 fL 9.4-12.4 NEUTROP # (test code = 4.0 10\\S\\3/uL 1.6-8.0 NE#) LYMPH # (test code = 2.5 10\\S\\3/uL 1.1-3.5 LY#) MONOCYTE # (test code = 0.8 10\\S\\3/uL 0.0-1.1 MO#) EOSINOPH # (test code = 0.2 10\\S\\3/uL 0.0-0.7 EO#) BASOPHIL # (test code = 0.1 10\\S\\3/uL 0.0-0.3 BA#) IG # (test code = IG#) 0.01 10\\S\\3/uL 0.00-0.06 NRBC # (test code = 0.00 10\\S\\3/uL 0.00-0.01 NRBC#) NEUTROPH % (test code = 53.3 % 35.0-73.0 NE%) LYMPH % (test code = 32.9 % 20.0-55.0 LY%) MONO % (test code = 10.8 % 2.5-10.0 H MO%) EOSINOPH % (test code = 2.0 % 0.0-5.0 EO%) BASOPHIL % (test code = 0.9 % 0.0-2.0 BA%) IG % (test code = IG%) 0.1 % 0.0-0.8 NRBC% (test code = 0.0 % 0.0-0.2 NRBC%) MAN DIFF (test code = MANUAL HMDIFF) DIFFERENTIAL SEG (test code = SEG) 56 % 42-75 BAND (test code = BAND) 0 % 0-8 LYMPH (test code = 39 % 20-51 LYMPH) MONO (test code = MONO) 5 % 3-11 EOS (test code = EOS) 0 % 0-10 BASO (test code = BASO) 0 % 0-2 RBC MORPH (test code = NORMAL NORMAL RBCMORN) PLT EST (test code = ADEQUATE ADEQUATE PLTEST) PLT MORPH (test code = NORMAL (1.5-3 um) NORMAL PLTMOR) XR ABDOMEN AP 1 VIEW [id number] 06:23:32 [place] [facility] : 1970 Sex: FLOCATION: [id number]: Female, 52 years of age with Abdominal painEXAM: ABDOMEN, ONE VIEWCOMPARISON: NoneFINDINGS: AP view is provided. Linear artifacts are present, possibly related to clothing. A couple of subcentimeter calcifications are projected over the left upper quadrant, possibly renal stones or splenic artery calcifications. No other abnormal calcifications are seen. Bowel gas pattern is normal. There is no abnormal mass or significant bowel distention. No acute bony abnormalities. IMPRESSION: Calcifications in left upper quadrant, possibly kidney stones or splenic artery calcification.Electronically signed by: Kyle Dominique MD 11/11/2022 6:23 AM AUTOMATIC STACKER [id number] METABOLIC RENTERIA 2022-11-11 04:14:00 Test Item Value Reference Range Interpretation Comments GLUCOSE (test code = 74 mg/dL 75-100 L 06D) SODIUM (test code = 138 mmol/L 136-145 01A) POTASSIUM (test code = 3.9 mmol/L 3.6-5.1 01B) CHLORIDE (test code = 102 mmol/L 98-107 04A) CO2 (test code = 02A) 26 mmol/L 20-31 ANION GAP (test code = 13.9 mmol/L ANG) BUN (test code = 05D) 10 mg/dL 9-23 CREATININE (test code 0.7 mg/dL 0.6-1.0 = 03E) GFR (test code = GFR) 101 mL/min/1.73m\\S\\2 >=90 GFR 117 mL/min/1.73m\\S\\2 >=90 (test code = GFRAA) EGFR (test code = eGFR BY CKD-EPI EGFR) CALCULATION IS NOT RECOMMENDED FOR PATIENTS UNDER 18 YEARS OF AGE. BUN/CREA (test code = 14 12-20 BCR) CALCIUM (test code = 8.1 mg/dL 8.3-10.6 L 09D) BILI TOTAL (test code 0.5 mg/dL 0.2-1.0 = 11A) PROTEIN (test code = 6.1 g/dL 5.7-8.2 07D) ALBUMIN (test code = 4.0 g/dL 3.2-4.8 08D) GLOBULIN (test code = 2.1 g/dL 1.5-3.8 GLB) ALB/GLOB (test code = 1.9 1.0-2.6 AGRR) ALK PHOS (test code = 52 IU/L 46-116 35A) AST (test code = 30A) 50 IU/L <=33 H ALT (test code = 31A) 39 IU/L 10-49 XR INSERT PICC W/IMAGING 5YRS & [id number] 16:54:36 [facility] : 1970 Sex: FLocationCode: S17 PICC PLACEMENT UNDER ULTRASOUND & FLUORODATE OF PROCEDURE: November 10 2022.INDICATION: Need for long-term IV access.ACCESS SITE: Right basilic vein.CATHETER: PICC double lumen OPERATING PHYSICIAN: Jorge Luis Dobbs M.D.FLUOROSCOPY TIME: 31 secondsTotal images: 2Dose: 0.1 [id number]: The risks, benefits, and alternatives to the procedure and sedation were explained, and written informedconsent obtained. With the patient in the supine position, the right upper arm was prepped and draped in the usual sterile fashion. Maximum sterile barriers including cap, mask, hand hygiene, sterile gloves, sterile gown, large sterile drape and cutaneous antisepsis were used. Sterile ultrasound techniques were followed including sterile gel and sterile probe cover. The skin was anesthetized with 1% Lidocaine. Ultrasound of the upper extremity was performed for demonstration of patency of potential candidates for venous access. Under ultrasound guidance, the right basilic vein was accessed with a mi cropuncture needle. Needle entering the vessel was documented and an ultrasound imaged was saved andsent to PACS. An 0.018" wire advanced centrally. A peel-away sheath was placed. A PICC line was cut to length, advanced through the peel- away sheath and positioned centrally using fluoroscopy. The sheath was removed, and hemostasis achieved using manual compression. The catheter was secured to the skin with a 2-0 Prolene suture. The catheter was flushed and a sterile dressing was applied. The patienttolerated the procedure well and remained in stable condition throughout the stay in the angiographysuite.FINDINGS:1. Patent right basilic vein by ultrasound. Needle entry into the vein documented, and an ultrasound image was stored to PACS.2. A limited documentation radiograph shows the catheter tipappropriately placed in the right atrium.IMPRESSION: Successful image-guided placement of an upper extremity PICC into a patent right basilic vein.PICC line is OK to use.Electronically signed by: Marie HODGES 11/10/2022 4:54 PM AUTOMATIC STACKER Workstation: [id number] 12:01:00 Test Item Value Reference Range Interpretation Comments LIPASE (test code = 60A) 25 IU/L 12-53 COMPREHENSIVE METABOLIC [id number] 05:06:00 Test Item Value Reference Range Interpretation Comments GLUCOSE (test code = 74 mg/dL 75-100 L 06D) SODIUM (test code = 137 mmol/L 136-145 01A) POTASSIUM (test code = 4.0 mmol/L 3.6-5.1 01B) CHLORIDE (test code = 101 mmol/L 98-107 04A) CO2 (test code = 02A) 26 mmol/L 20-31 ANION GAP (test code = 14.0 mmol/L ANG) BUN (test code = 05D) 21 mg/dL 9-23 CREATININE (test code 0.9 mg/dL 0.6-1.0 = 03E) GFR (test code = GFR) 74 mL/min/1.73m\\S\\2 >=90 L GFR 86 mL/min/1.73m\\S\\2 >=90 L (test code = GFRAA) EGFR (test code = eGFR BY CKD-EPI EGFR) CALCULATION IS NOT RECOMMENDED FOR PATIENTS UNDER 18 YEARS OF AGE. BUN/CREA (test code = 23 12-20 H BCR) CALCIUM (test code = 7.6 mg/dL 8.3-10.6 L 09D) BILI TOTAL (test code 0.8 mg/dL 0.2-1.0 = 11A) PROTEIN (test code = 6.2 g/dL 5.7-8.2 07D) ALBUMIN (test code = 4.0 g/dL 3.2-4.8 08D) GLOBULIN (test code = 2.2 g/dL 1.5-3.8 GLB) ALB/GLOB (test code = 1.8 1.0-2.6 AGRR) ALK PHOS (test code = 54 IU/L 46-116 35A) AST (test code = 30A) 35 IU/L <=33 H ALT (test code = 31A) 34 IU/L 10-49 CBC (INCLUDES AUTOMATED DIFFERENTIAL)2022-11-10 04:51:00 Test Item Value Reference Range Interpretation Comments WBC (test code = WBC) 7.0 10\\S\\3/uL 4.5-11.0 RBC (test code = RBC) 3.49 10\\S\\6/uL 4.20-5.60 L HGB (test code = HBG) 12.1 g/dL 12.0-15.5 HCT (test code = HCT) 34.4 % 35.0-44.0 L MCV (test code = MCV) 98.6 fL 81.0-99.0 MCH (test code = MCH) 34.7 pg 27.0-31.0 H MCHC (test code = MCHC) 35.2 g/dL 32.0-36.0 RDW (test code = RDW) 13.2 % 11.5-14.5 PLT (test code = PLT) 189 10\\S\\3/uL 130-400 MPV (test code = MPV) 10.2 fL 9.4-12.4 NEUTROP # (test code = NE#) 3.8 10\\S\\3/uL 1.6-8.0 LYMPH # (test code = LY#) 2.1 10\\S\\3/uL 1.1-3.5 MONOCYTE # (test code = MO#) 1.0 10\\S\\3/uL 0.0-1.1 EOSINOPH # (test code = EO#) 0.1 10\\S\\3/uL 0.0-0.7 BASOPHIL # (test code = BA#) 0.0 10\\S\\3/uL 0.0-0.3 IG # (test code = IG#) 0.01 10\\S\\3/uL 0.00-0.06 NRBC # (test code = NRBC#) 0.00 10\\S\\3/uL 0.00-0.01 NEUTROPH % (test code = NE%) 54.4 % 35.0-73.0 LYMPH % (test code = LY%) 29.6 % 20.0-55.0 MONO % (test code = MO%) 14.4 % 2.5-10.0 H EOSINOPH % (test code = EO%) 1.1 % 0.0-5.0 BASOPHIL % (test code = BA%) 0.4 % 0.0-2.0 IG % (test code = IG%) 0.1 % 0.0-0.8 NRBC% (test code = NRBC%) 0.0 % 0.0-0.2 MANDIFF (test code = MDIFF) NO RBC MORPH (test code = RBCMOR) NORMAL SARS-CoV (RAPID ANTIGEN) WH2022-11-09 13:11:00 Test Item Value Reference Range Interpretation Comments SARS-CoV (ANTIGEN) NEGATIVE NEGATIVE (test code = COVAG) COVID AG (test This test has been code = COVAGC) marketed under the FDA Emergency Use Authorization (EUA) to meet challenges of the COVID-19 pandemic. The validation standards normally enforced by the FDA and the College of the [employer] (CAP) are more stringent than those required for this test. Therefore, the result should be interpreted with caution and close attention to other clinical and epidemiological data CT ABDOMEN AND PELVIS W/O CONTRAST *OW*2022-11-09 11:12:28 [facility] : 1970 Sex: FEXAMINATION:CT ABDOMEN AND PELVIS W/O CONTRAST *OW*CLINICAL INDICATION: Abdominal painTECHNIQUE: CT imaging of the abdomen and pelvis was performed without intravenous contrast. Coronal and sagittal reformats were provided. One or more of the following dose reduction techniques were used: Automated exposure co ntrol, adjustment of the mA and/or kV according to patient size, and/or iterative reconstruction. COMPARISON: NoneFINDINGS:Characterization of the solid organs is limited by lack of contrast media.Lower Chest: The visualized lung bases are clear. The heart is normal in size. No pericardial effusion is identified.Liver: There is diffuse low-attenuation of the liver compatible with hepatic steatosis. No hepatic mass is identified. The bile ducts are of normal caliber.Gallbladder: No calcified stone, wall thickening, or pericholecystic fluid is identified.Pancreas: Unremarkable.Spleen: Normal in size and contour.Adrenals: Unremarkable.Kidneys and ureters: Punctate nonobstructing stones are noted in both kidneys. There is no hydronephrosis. No perinephric fat stranding is present.Bowel: Oral contrastwas not given. The small bowel loops are nondilated. There is no evidence of a small bowel obstruction. The appendix is not definitively identified. There are no secondary signs of acute appendicitis. Long segment wall thickening of the ascending and transverse colon is noted. There is a moderate amount of stool in the left hemicolon.Bladder/Reproductive Organs: The urinary bladder is relatively empty. uterus is absent.Peritoneum andNo free air or ascites is identified.teNo retroperitoneal mass or hemorrhage is present.rrhage is preseNo lymphadenopathy is identified.thy is identified.Vascular: The abdominal aorta and inferior vena cava are normal in course and caliber.No hernia or mass.No hernia or mass is identified.Bones: No acute fracture is identified. Mild degenerative changes are present.IMPRESSION:1. Hepatic steatosis.2. Bilateral punctate nephrolithiasis. No hydronephrosis.3. Long segment wall thickening affecting the ascending and transverse colon. Differential considerations include infectious colitis or inflammatory bowel disease. Please correlate.Electronically signed by: Foster Sy MD 11/09/2022 11:12 AM AUTOMATIC STACKER [id number] OF ABUSE*OW* 2022-11-09 10:51:00 Test Item Value Reference Range Interpretation Comments DRUG SCRN (test code URINE DRUG SCREEN = HDOA) This is an unconfirmed screening result and should not be used for non-medical purposes PHENCYCLID (test Negative NEGATIVE code = GPCP) BENZODIAZE (test Negative NEGATIVE code = GBZO) COCAINE (test code = Negative NEGATIVE GCOC) AMPHETAMIN (test Negative NEGATIVE code = GAMP) THC (test code = Positive NEGATIVE A GTHC) OPIATES (test code = Negative NEGATIVE ANNE) BARBITURAT (test Negative NEGATIVE code = GBAR) TCA (test code = Negative NEGATIVE GTCA) DOAH (test code = URINE DRUG DOAH) SCREEN CUT OFF VALUES Amphetamines 1000 ng/mL Barbiturates 300 ng/mL Benzodiazepines 300 ng/mL Cocaine 300 ng/mL Opiates 300 ng/mL Phencyclidine 25 ng/mL THC 50 ng/mL Tricyclic Antidepressants 1000 ng/mL GENERAL CHEMISTRY 13 *OW* [id number] 10:49:00 Test Item Value Reference Range Interpretation Comments GLUCOSE (test code = GGUL) 134 mg/dL 73-118 H BUN (test code = GBUN) 21 mg/dL 7-22 CREATININE (test code = GCRE) 0.9 mg/dL 0.6-1.2 URIC ACID (test code = GUA) 8.7 mg/dL 2.2-6.6 H CALCIUM (test code = GCL+) 9.3 mg/dL 8.0-10.3 ALBUMIN (test code = GALB) 5.4 g/dL 3.5-5.5 PROTEIN (test code = GTP) 9.0 g/dL 6.4-8.1 H ALT (test code = GALT) 49 U/L 10-47 H AST (test code = WILBUR) 55 U/L 11-38 H ALK PHOS (test code = GALP) 73 U/L 42-141 BILI TOTAL (test code = GTBIL) 0.7 mg/dL 0.2-1.6 GGT (test code = GGGT) 56 U/L 5-65 AMYLASE (test code = GAMY) 48 U/L 14-97 MetyLyte 8 Panel *OW* [id number] 10:49:00 Test Item Value Reference Range Interpretation Comments GLUCOSE (test code = GGUL) 134 mg/dL 73-118 H BUN (test code = GBUN) 21 mg/dL 7-22 CREATININE (test code = GCRE) 0.9 mg/dL 0.6-1.2 CK TOTAL (test code = GCK) 112 U/L 30-190 SODIUM (test code = GNA+) 143 mmol/L 128-145 POTASSIUM (test code = GK+) 4.6 mmol/L 3.6-5.1 CHLORIDE (test code = GCL-) 94 mmol/L 98-108 L TCO2 (test code = GTC02) 20 mmol/L 18-33 URINALYSIS W/O MICROSCOPICOW2022-11-09 10:43:00 Test Item Value Reference Range Interpretation Comments COLOR (test code = Yellow YELLOW COLU) CLARITY (test code = Clear CLEAR CLA) GLUCOSE UR (test Negative NEGATIVE code = UA GLUCOSE) BILI UR (test code = 1+ NEGATIVE A BILE) KETONES UR (test 3+ NEGATIVE A code = AMILCAR) SP GRAVITY (test >=1.030 1.005-1.030 code = SPGR) PH UR (test code = 5.5 4.5-8.0 PH) PROTEIN UR (test 3+ NEGATIVE A code = PU) NITRITE UR (test Negative NEGATIVE code = NITRITE) UROBIL UR (test code 0.2 E.U./dL = GUROQ) UROBIL UR (test code UROBILINOGEN = GUROQC) REFERENCE RANGE 0.2 - 1.0 EU/dL BLOOD UR (test code 3+ NEGATIVE A = UA BLOOD) LEUK ES UR (test Negative NEGATIVE code = LEUK) CBC (INCLUDES AUTOMATED DIFFERENTIAL) *2022-11-09 10:42:00 Test Item Value Reference Range Interpretation Comments WBC (test code = WBC) 15.1 10\\S\\3/uL 4.5-11.0 H RBC (test code = RBC) 4.63 10\\S\\6/uL 4.20-5.60 HGB (test code = HBG) 15.9 g/dL 12.0-15.5 H HCT (test code = HCT) 49.1 % 35.0-44.0 H MCV (test code = MCV) 106.1 fL 81.0-99.0 H MCH (test code = MCH) 34.3 pg 27.0-31.0 H MCHC (test code = MCHC) 32.4 g/dL 32.0-36.0 RDW (test code = RDW) 13.1 % 11.5-14.5 PLT (test code = PLT) 289 10\\S\\3/uL 130-400 MPV (test code = OMPV) 7.9 fL 6.2-10.2 NEUTROP # (test code = NE#) 13.2 10\\S\\3/uL 1.6-8.0 H LYMPH # (test code = LY#) 1.3 10\\S\\3/uL 1.1-3.5 MID # (test code = GMID#) 0.7 10\\S\\3/uL 0.0-1.1 GRAN % (test code = GRA%) 87.3 % 35.0-73.0 H LYMPH % (test code = GLY%) 8.3 % 20.0-55.0 L MID % (test code = GMID%) 4.4 % 0.0-10.0 POCT URINALYSIS W SPECIFIC [id number] 15:39:00 Test Item Value Reference Range Interpretation Comments POCT U SP GRAV (test code = 1.010 mg/dl 1.005-1.025 3255) POCT PH U (test code = 3254) 7 mg/dl 5-8 POCT U LEUK EST (test code = ++ Negative - Negative 3263) POCT U NIT (test code = 3262) Negative Negative - Negative POCT U PROT (test code = Trace Negative - Negative 3259) POCT U GLU (test code = 3256) Normal Negative - Negative POCT U KETONE (test code = Positive Negative - Negative 3258) POCT U UROBILI (test code = Normal 0.2-1 3260) POCT U BILI (test code = Negative Negative - Negative 3261) POCT U BLD (test code = 3257) About 250 Negative - Negative POCT U COLOR (test code = Yellow 3266) POCT U APPEAR (test code = Clear 3267) Lab Interpretation (test code Abnormal = 71762-3) [facility] Center[facility],OTHER [facility] PROLAPSE/[id number] 16:48:00 Test Item Value Reference Range Interpretation Comments UTERUS,OTHER THAN PROLAPSE/KISHA (test code = UTERUSOTH) --------RUN DATE: 07/21/20 [facility] PAGE 1 RUN TIME: 818 Specimen Inquiry RUN USER: INTERFACE --------PATIENT: VIDA ZAMORA LOC: U U #: [id number] AGE/SX: 50/F ROOM: [facility] RE07/19/20REG DR: David Ortiz III, MD : 74 BED: A DIS: 07/19/20 STATUS: DIS Vale TLOC: -------- SPEC #: [id number] RECD: 07/19/20 STATUS: CALEB PAZ #: [id number] CARMINE: 07/19/20- SUBM DR: David Ortiz III, MD ENTERED: 07/19/20 SP TYPE: UTERUSOTH OTHR DR: Zara Dhillon MD ORDERED: LEVEL V SURGICA CODES: [id number] - UTERUS, NOS COPIES TO: Zara Dhillon MD [address] [place] [address] [email or web address] David Ortiz III, MD [address] [place] [address] PROCEDURES: LEVEL V SURGICA (Incomplete) TISSUES: UTERUS, NOS - UTERUS, CERVIX AND PARTIAL RIGHT FALLOPIAN TUBE CLINICAL HISTORY 50 year old, pelvic pain, cervical intraepithelial neoplasia (wpd) FINAL DIAGNOSIS Uterus, partial right fallopian tube, hysterectomy and partial salpingectomy: cervix - high-grade squamous intraepithelial neoplasia (AMERICO 3), margins free - parakeratosis and focal nonspecific chronic cervicitis endometrium - benign, proliferative phase myometrium - leiomyoma, 3.5 mm uterine serosa - no significant pathologic alteration right fallopian tube - benign paratubal cyst CPT code(s): 24169 lsh/wpd CONTINUED ON NEXT PAGE --------RUN DATE: 07/21/20 [facility] PAGE 2 RUN TIME: 818 Specimen Inquiry RUN USER: INTERFACE --------SPEC #: [id number] PATIENT: VIDA ZAMORA #[id number] (Continued) GROSS DESCRIPTION ANATOMIC SOURCE OF TISSUE (per Requisition): Uterus, [...] 0.6 cm. The anterior aspect is inked green. The posterior aspect is inked black. The serosa is palacio-pink and dull. The ectocervix is white-pink and dull. The endocervix is palacio-pink. The specimen is bivalved to reveal a 3.5 x 1.7 cm palacio-pink endometrial cavity. The endometrial thickness averages 0.1 cm. The anterior myometrium displays a 0.3 cm white-pink nodule. The myometrium is palacio-pink with a 1.3 cm average thickness. The fallopian tube is palacio-pink with fimbriae. Sectioning reveals a pinpoint lumen. A 1.0 cm paratubal cyst is identified. Management Analyst sections are submitted as follows: A1 and A2 - 12:00 to 3:00 cervix, A3 and A4 - 3:00 to 6:00 cervix, A5 and A6 - 6:00 to 9:00 cervix, A7 and A8 - 9:00 to 12:00 cervix, A9 - anterior endomyometrium, A10 - posterior endomyometrium, A11 - myometrium and nodule, A12 - fallopian tube and paratubal cyst. cooper/wpd 07/19/20 Signed ____ Mai Schmitt MD 07/20/20 1648 -------- END OF REPORT COVID 19 Asymptomatic IH [id number] 18:15:00 Test Item Value Reference Range Interpretation Comments COVID 19 NEGATIVE NEGATIVE This test has b een Asymptomatic IH AG authorize d only for the (test code = detection ofpro teins from COVNONPUIAG) SARS-CoV-2, not for any other viruses orpathogens. Ne gative results should be treated as presumptive andconfirmed [...] or approved; th e test hasbeen authori samanthad by FDA under an Emerge ncy Use Authorization(E UA) for use by laureen workman certified under the CLIA thatmeet the re quirements to perform mode rate, high or waivedcomple xity tests. This shnie t is authorized for use at thePoint [...] and/o r diagnosis of CO VID-19 under Jbnpsjj14 4(b)(1) of the Act, 21 U.S .C. 360bbb-3(b)(1), unless theauthorizatio n is terminated or r evoked sooner. URINALYSIS [id number] 12:52:00 Test Item Value Reference Range Interpretation [...] 1 2 (test NONREACTIVE NONREACTIVE Done by [facility] C2 Therapeuticsaur code = URE69XC) 4th Gen HIV Ag/Ab Combo Screen IS CONSENT FORM SIGNED FOR HIV TESTING? YHCG SERUM [id number] 11:30:00 Test Item Value Reference Range Interpretation Comments HCG SERUM QUAL (test code = HCGQL) NEGATIVE CBC W/AUTO [id number] 11:28:00 Test Item Value Reference Range Interpretation [...] (test NORMAL NORMAL code = PLTMR) CA 12:44:00 Test Item Value Reference Range Interpretation Comments CA 19-9 (test code = CA19) 6.0 Comments to Sheet Rock Finisher: large pelvic massCA 07:17:00 Test Item Value Reference Range Interpretation Comments CA 19-9 (test 6.0 U/mL 0-35 [employer] code = CA19) Electrochemilum inescence Immunoassay(ECL IA)Values obtained with d ifferent assay methods or kits cannotbe used interchangeably . Results cannot be interpreted asabsolute evidence of the presence or absence of malignantdiseas e.Performed At: [facility] [address] [place], [place] [address]Ytcody ra Dashawn HODGES Ph:[phone] FLUID,[id number] 18:03:00 RUN DATE: 06/03/20 [facility] PAGE 1 RUN TIME: 817 Specimen Inquiry RUN USER: INTERFACE -PATIENT: VIDA ZAMORA [facility] [place] [id number] AGE/SX: 50/F ROOM: [facility] RE05/31/20REG DR:Jennyfer Ascencio MD : 74 BED: A DIS: 06/01/20 STATUS: DIS IN TLOC: SPEC #: [id number] RECD: 05/31/20 STATUS: CALEB PAZ #: [id number] CARMINE: 05/31/20- SUBM DR: Jennyfer Ascencio MD ENTERED: 05/31/20P TYPE: FLO OT DR: Ladarius Schuler MD ORDERED: CYTOLOGY/SACCOM CODES: Q88805 - OVARY, NOS COPIESTO: Jennyfer Ascencio MD [address] [facility] [address] [place] [address] Ladarius Schuler MD [address] [facility] [address] [place] [address] PROCEDURES: CYTOLOGY/SACCOM (Incomplete) TISSUES: OVARY,NOS - LEFT OVARIAN CYST FLUID CLINICAL HISTORY Not provided (kr) FINAL DIAGNOSIS Left ovarian cyst fluid (cytospins): - no malignant cells identified CPT code(s): 65476 [facility]/wpd GROSS DESCRIPTION The specimen is received in a container, labeled with the patient's name and designated "left ovarian cyst fluid" and consists of approximately 30 ml of yellow liquid. Two cytospins are made. No cell block isprepared. ascencion/bebeto 05/31/20 CONTINUED ON NEXT PAGE RUN DATE: 06/03/20 [facility] PAGE 2 RUN TIME: 817 Specimen Inquiry RUN USER: INTERFACE SPEC #: [id number] PATIENT: VIDA ZAMORA #[id number] (Cont inued) MICROSCOPIC DESCRIPTION COMMENT: The corresponding surgical pathology [id number] showed: Endometrial polyp, curettage: - rare small groups of atypical squamous cells suspicious for dysplasia/high- grade squamous intraepithelial neoplasia - rare small fragments of benign superficial endometrium Left ovarian cyst, fallopian tube and ovary, salpingo-oophorectomy: - fallopian tube - no significant pathologic alteration - ovary - benign surface epithelial inclusion cyst, 11 cm (collapsed) veena/troy Signed Mai Schmitt MD 06/02/20 1803 END OF REPORT FELICIA,[id number] 15:10:00 RUN DATE: 06/02/20 [facility] PAGE 1 RUN TIME: 1343 Specimen Inquiry RUN USER: INTERFACE --PATIENT: VIDA ZAMORA LOC: [facility] U #: [id number] AGE/SX: 50/F ROOM: [facility] RE05/31/20REG DR:Jennyfer Ascencio MD : 74 BED: A DIS: 06/01/20 STATUS: DIS IN TLOC: SPEC #: [id number] RECD: 05/31/20 STATUS: CALEB REReena #: [id number] CARMINE: 05/31/20- SUBM DR: Jennyfer Ascencio MD ENTERED: 05/31/20-P TYPE: ENDOMETBX OTHR DR: Ladarius Schuler MD ORDERED: LEVEL IV/2 CODES: [id number] - ENDOMETRIUM, NO [id number] - OVARY, NOS COPIES TO: Jennyfer Ascencio MD [address] [place], [place] [id number] Ladarius Schuler MD [address] [facility] [address] [place] [address] PROCEDURES: LEVEL IV (Incomplete) TISSUES: ENDOMETRIUM, NOS - ENDOMETRIAL POLYP OVARY, NOS - LEFT OVARIAN CYST, TUBE AND OVARY CLINICAL HISTORY Not provided (kr) FINAL DIAGNOSIS Endometrial polyp, curettage: - Rare small groups of atypical squamous cells suspicious for dysplasia/high- grade squamous intraepithelial neoplasia - Raresmall fragments of benign superficial endometrium Left ovarian cyst, fallopian tube and ovary, salpingo-oophorectomy: - fallopian tube - no significant pathologic alteration - ovary - benign surface epithelial inclusion cyst, 11 cm (collapsed) CPT: 14579 x2, 65555-71, 21282-82 ls/wpd CONTINUED ON NEXT PAGE RUN DATE: 06/02/20 [facility] PAGE 2 RUN TIME: 1343 Specimen Inquiry RUN USER: INTERFACE SPEC #: [id number] PATIENT: VIDA ZAMORA #[id number] (Continued) GROSS DESCRIPTION ANATOMIC SOURCE OF TISSUE (per Requisition): 1. Endometrial polyp 2. Left ovarian cyst, tube and ovary Each specimen is labeled with the patient's name and medical record number. Specimen #1 is designated "endometrial polyp" and consists of small pieces of pink tissue on a Telfa pad aggregating to 0.3 x 0.3 x <0.1 cm and is submitted in toto A1. Specimen #2 is designated "left ovarian cyst, tube, and ovary" and consists of a 4 x 0.3 x 0.3 cm fallopian tube with fimbriae with an attached collapsed 11 x 10 x 0.4 cm unilocular cyst with off-white and wrinkled internal lining. No papillary nor firm lesion is noted. The scant contents of the cyst is clear and thin. No ovarian tissue is identified. Management Analyst sections are submitted in B1 through B7 (B1 contains the entire fimbriae and one cross-section of tube and cystwall). nancy/bebeto 05/31/20 MICROSCOPIC DESCRIPTION The following technical components [email or web address], [address] [place] [address], [address], [place] [address]. The interpretation is provided by [facility], [address] [place] [address]. Controls received from [facility] stained appropriately. INTERPRETATION: Block A1- p16: Positive Ki-67: Focally positive-- Signed Mai Schmitt MD 06/01/20 1510 END OF REPORT CBC W/AUTO [id number] 07:02:00 Test Item Value Reference Range Interpretation [...] (test NORMAL NORMAL code = PLTMR) AG [id number] 18:39:00 Test Item Value Reference Range Interpretation Comments AG CARCINOEMBRYONIC (test code = 0.52 ng/mL 0.0-3.00 N CEA) CA [id number] 18:39:00 Test Item Value Reference Range Interpretation Comments CA 125 (test code = CA125) < 5.5 Units/mL 0-35.0 N COMPREHENSIVE METABOLIC [id number] 18:39:00 Test Item Value Reference Range Interpretation [...] units/L 46-116 N code = ALKP) AG [id number] 18:39:00 Test Item Value Reference Range Interpretation Comments AG CARCINOEMBRYONIC (test code = 0.52 ng/mL 0.0-3.00 CEA) CA [id number] 18:39:00 Test Item Value Reference Range Interpretation Comments CA 125 (test code = CA125) <5.5 Units/mL 0-35.0 HCG [id number] 01:59:00 Test Item Value Reference Range Interpretation Comments HCG SERUM (test <1 INTERPRETATI ON:VALUES BETWEEN code = HCG) 15-20 milliInte rnational units/mL NEED T O BERETESTED WITHIN 48 HOURS . All units for these ranges ar e in milliInternatio nalunits/mL0-1 WK AFTER CONCEP TION 0-50 1-2 WKS AFTER ANTHONY PTION 40-3002-3 WKS AFTER ANTHONY PTION 100-1,0003-4 WK S AFTER CONCEPTION 500- 6,0001-2 MONTHS AFTER CONCEPTIO N 5,000-200,0002- 3 MONTHS AFTER CONCEPTION 10,0 00-100,0002ND TRIMESTER 3,000 -50,0003RD TRIMESTER 1,000 -50,000 SPECIMENS WITH AN HCG LEVEL FROM 0-6 milliInternatio nalunits/mL SHOULD BE CONSI DERED NEGATIVE COMPREHENSIVE METABOLIC [id number] 01:50:00 Test Item Value Reference Range Interpretation [...] units/L 46-116 N code = ALKP) AG [id number] 01:50:00 Test Item Value Reference Range Interpretation Comments AG CARCINOEMBRYONIC (test code = CEA) CA [id number] 01:50:00 Test Item Value Reference Range Interpretation Comments CA 125 (test code = CA125) COVID 19 Asymptomatic IH [id number] 01:50:00 Test Item Value Reference Range Interpretation Comments COVID 19 NEGATIVE NEGATIVE This test has b een Asymptomatic IH AG authorize d only for the (test code = detection ofpro teins from COVNONPUIAG) SARS-CoV-2, not for any other viruses orpathogens. Ne gative results should be treated as presumptive andconfirmed [...] and/o r diagnosis of CO VID-19 under Tcoxqxa29 4(b)(1) of the Act, 21 U.S .C. 360bbb-3(b)(1), unless theauthorizatio n is terminated or r evoked sooner. UR HCG [id number] 01:28:00 Test Item Value Reference Range Interpretation [...] 48 hours later and tested. CBC W/AUTO [id number] 01:21:00 Test Item Value Reference Range Interpretation [...] REQUIRED (test NORMAL NORMAL code = PLTMR) Notes Date/Time Note Provider Source 2020-07-19 16:59[facility]00-00:00 [facility] Post Prog Note REPORT#:[id number] REPORT STATUS: Signed DATE:07/19/20 TIME: 1658 PATIENT: VIDA ZAMORA UNIT #: [id number] ROOM/BED: [address] : 74 AGE: 50 SEX: F ATTEND: David Ortiz III, MD ADM AUTHOR: David Ortiz III, MD * ALL edits or amendments must be made on the Copiun/Ofelia Feliz document * General ORM Surgeries: Surgery Date and Time: 07/19/2020729 Primary Procedure: THREE PUNCTURE TOTAL LAPAROS COPIC Secondary Procedure: CYSTOSCOPY WITH PROCEDURE Post-op: post surgery rounds Status post: [facility] Subjective Patient reports: Yes: complaints, ambulating, flatus/bowel movement, pain controlled, pelvic pain , voiding/urinating. No: abdominal pain, chills, fever, headache, heartburn, nausea, tolerating diet, vaginal bleeding, vomit ing. Objective General VS/I O: Last Documented: Result Date Time Pulse Ox 96 07/19 1100 B/P 121/77 07/19 1100 O2 Delivery Room air 07/19 1100 Temp 98.4 07/19 1100 Pulse 72 07/19 1100 Resp 16 07/19 1100 B/P Mean 91.4 07/19 1056 O2 Flow Rate 10 07/19 0913 Patient Weight Weight (lb): 145 Weight (oz): 8.08 Weight (kg): 66.000 Physical Exam General appearance: alert, awake, oriented, no a cute distress, pleasant, conversational, mental status normal, no respira tory distress Wound/incision: Location: Abd clean dry Extremities: full range of motion, moves all, no calf tenderness, no edema Diagnosis, Assessment Plan Free Text A P: POD # 0 doing well except for bladder pressure that she has had for several weeks. Urine C S neg 07/15 Cystoscopy today WNL by urogyn After voiding pt would like to go home this PM RTC 2 weeks instructions given on post op care at 1703 RPT #:[id number] END OF REPORT 2020-07-19 08:54:00-00:00 [id number] [facility] [address] [place], [place] [address] PATIENT NAME: VIDA ZAMORA ADMIT DATE: ACCOUNT NO: [id number] ROOM NO: 2618 AGE: 50 SEX: F ADMITTING PHYSICIAN: David Ortiz III, MD ATTENDING PHYSICIAN: David Ortiz III, MD OPERATION DATE: 07/19/2020 PREOPERATIVE DIAGNOSES: 1. Pelvic pain. 2. Adenomyosis. POSTOPERATIVE DIAGNOSES: 1. Pelvic pain. 2. Adenomyosis. PROCEDURE: Cystourethroscopy. SURGEON: Zara Dhillon MD EVENT PLANNER: ANESTHESIA: General endotracheal. ESTIMATED BLOOD LOSS: Zero for this portion of t he surgery. INDICATION: Ms. Zamora is a 50-year-old female who was undergoing a laparoscopic hysterectomy. At the end of the pro cedure, it was asked that cystourethroscopy be performed to evaluate the i ntegrity of the lower urinary tract. FINDINGS: Cystourethroscopy revealed ureteral orifices in the normal anatomical location. Excellent bilateral ureteral efflux wa s visualized. There was no evidence of bladder lesions or injury. The ureth ra was noted to be intact. PROCEDURE IN DETAIL: The patient was alma delia en to the operating room where she was prepped and draped in the usual sterile fashion in the dorsal lithotomy position. A Velazquez catheter was placed through th e urethral meatus. Initially, a total laparoscopic hysterectomy and ri ght salpingectomy was performed by Dr. Scooter Ortiz. At the conclusion of this proce dure, I proceeded with cystourethroscopy. Velazquez catheter was removed. Cystourethroscopy wa s then performed with a 70-degree cystoscope revealing the above noted f indings. A complete bladder survey with full bladder dis tention was performed. Velazquez catheter was replaced. The patient tolerated the procedure well. Sponge , lap, and needle counts were correct x2. She was taken to recovery room in st able condition. PATIENT NAME: VIDA ZAMORA [id number] Dictated By: Zara Dhillon MD WT: OP:F.HIM/WOODY/NTS Conf#: [id number]/DID#: [id number] Authenticated by Zara Dhillon MD On 08/04/20 08:39:57 AM at 0840 PATIENT NAME: VIDA ZAMORA [id number] 2020-07-18 10:21:00-00:00 [id number] [facility] [address] [place] [address] PATIENT NAME: VIDA ZAMORA ADMIT DATE: ACCOUNT NO: [id number] ROOM NO: AGE: 50 SEX: F ADMITTING PHYSICIAN: ATTENDING PHYSICIAN: David Ortiz III, MD ADMISSION DATE: 07/19/2020 ADMITTING DIAGNOSES: Pelvic pain and menorrhagia . HISTORY OF PRESENT ILLNESS: The patient is a 50-year-old 1, para 1, in April of this year had undergone a cystectomy silvio Schuler for a large mass. The left fallopian tube and ovary were removed, it was 11 cm in diameter. She returned as a followup to md, complained of cont inuous pelvic pain and menorrhagia requiring nonsteroidals plus tramadol for pain relief. Significant history, she in the past had a LEEP in 2003. At the time Dr. Schuler did the cystectomy, there was an endometrial polyp, whic h showed some atypical cells. Colposcopy and biopsy revealed no additional abn ormalities with normal Pap smear. ALLERGIES: NONE KNOWN. PAST SURGICAL HISTORY: LEEP, ovarian cys t x3, tonsillectomy and an appendix in 1992, one previous delivery of a male in 2001. REVIEW OF SYSTEMS: Otherwise negative. SOCIAL HISTORY: Occasional alcohol, occasional q uarter pack a day of cigarettes. FAMILY HISTORY: Positive for colon cance r in her grandmother and mom. Positive for heart disease and diabetes. No histo ry of breast cancer or ovarian cancer. PHYSICAL EXAMINATION: VITAL SIGNS: Blood pressure 120/80. Weight appro ximately 146 pounds. GENERAL: Well-developed, well-nourished [place] n female, in no apparent distress. HEENT: Normocephalic. PERRLA. EOMs intact. Scler ae nonicteric. Oropharynx clear. HEART: Regular rate and rhythm. No murmur or gal lop. LUNGS: Clear. EXTREMITIES: No clubbing, cyanosis, or edema. BREASTS: No tenderness, mass, or discharge. ABDOMEN: Bowel sounds are positive. PELVIS: External BUS, normal female. Vagina pink without lesions. Cervix without lesions. Small ectropion noted. The uter us was tender to palpation. Adnexa is clear. RECTOVAGINAL: Deferred. NEUROLOGICAL: Grossly intact. PATIENT NAME: VIDA ZAMORA [id number] MUSCULOSKELETAL: Grossly intact. IMPRESSION: Chronic pelvic pain, history of dysp lasia, history of multiple cysts. PLAN: TLH ____ with possible RSO. Informed conse nt, risks and benefits of the procedure were explained to the patient including the risk of blood loss, injury to bowel, bladder, ureters; risk of infection. T he patient understands these risks and wished to proceed with above operation . Attention, we especially turned to the pathology of the cervix as she is status post LEEP and did have some atypical cells on Pap smear and biopsy. Dictated By: David Ortiz III, MD WT: HP:FNOBLE/FERNANDO/MAYO Conf#: [id number]/DID#: [id number] Authenticated by David Ortiz MD On 07/19/2020 10:14:41 AM Electronically Signed by David Ortiz III, MD o n 07/19/20 at 1015 PATIENT NAME: VIDA ZAMORA [id number] 10:59:00-00:00 [id number] [facility] [address] [place] [place] [address] PATIENT NAME: VIDA ZAMORA ADMIT DATE: ACCOUNT NO: [id number] ROOM NO: .2664 AGE: 50 SEX: F ADMITTING PHYSICIAN: Jennyfer Ascencio MD ATTENDING PHYSICIAN: Jennyfer Ascencio MD OPERATION DATE: 05/31/2020 SURGERY DATE: 05/31/2020 at 10:43 a.m. PREOPERATIVE DIAGNOSES: Left ovarian cyst with p elvic pain, nausea, vomiting, and diarrhea, history of cervix dysplasia, negle cted followup. POSTOPERATIVE DIAGNOSES: Endocervical polyp lesi on that was biopsied, left ovarian cyst, large, at least 13 cm in d iameter with great deal of traction to the infundibulopelvic ligament, explaining the p elvic pain, nausea, vomiting, and maybe even the diarrhea. PROCEDURES PERFORMED: Operative laparoscopy, lef t salpingo-oophorectomy and biopsy of the polyp of cervix. The technique was laparoscopic. PRIMARY SURGEON: Ladarius Schuler MD EVENT PLANNER: Clair Plummre MD. ANESTHESIOLOGIST: Michael Hess MD. ANESTHESIA: General anesthesia. INDICATIONS: Pelvic pain, a large 13 cm cyst, na usea, vomiting, and diarrhea. OPERATIVE FINDINGS: A large unilocular cyst of 13 cm in diameter, benign, and a polyp-like lesion at the cervix with history of cervical dysplasia. ESTIMATED BLOOD LOSS: Less than 10 mL. SPECIMENS REMOVED: Left tube and ovary and 700 m L of serous fluid as well as removal of a cervical polyp that was submitted a s a separate specimen. IV FLUIDS: 900 crystalloids. URINARY OUTPUT: 50 mL. The patient transferred t o PACU and med-surg. FINDINGS: Vida Zamora is 50-year-old. She castillo d a cervix with a polyp and the polyp was biopsied and submitted for permane nt section. The left adnexa, unilocular cyst of 13 cm wit h clear fluid. This was after salpingo-oophorectomy performed, the cyst aspirated and placed into a bag and removed through the umbilical scar. PATIENT NAME: VIDA ZAMORA [id number] PROCEDURE IN DETAIL: Ms. Vida Zamora is a 50 -year-old postmenopausal. The cervix was dilated. The biopsy of the ce rvix is obtained, the tissue submitted for permanent section. Uterus is sounded and a 10 cm intrauterine balloon with the IVETTE to mobilize the [place] herb anteroposterior and lateral was in place with a Velazquez catheter that will be discontinued at the end of the procedure. Attention passed to the abdomen. Inframumbilical incision performed. Veress needle in place, pneumoperitoneum esta blished to a total of 3 liters. Trocar of 10 and [address], with the laparoscope is fou nd, very large left adnexal mass. No contralateral pathology. Normal uterus, normal upper abdomen. Trocars are placed of the iliac crest, right and left of 5 mm under direct visualization and the avascular space an d injecting and a TAP block with 10 mL of 0.25% Marcaine with epinephrine. The incision s are done with 5-mm trocars, and using the Thunderbeat is a merely identified the uteroovarian ligament divided, infundibulopelvic ligament with localiz ation of the ureter was also coagulated and divided and t he specimen free in the cavity was not drained, 700 mL of serous fluid being drained. Now the Endoba g was placed replacing the 10-mm laparoscope via a 5-mm laparoscope in the right lower quadrant. The Endobag was deployed, inframumbilical. The speci men was captured and the specimen was removed from the infraumbilical inc ision. The area was then checked and hemostasis secur ed and the procedure was completed. The patient now having a Pelon-Akbar to close the incision a nd a UR-6 for the other incisions in a subcuticular with Dermabo nd. The patient was transferred to the recovery room in good condition, vital signs sta ble. Dictated By: Ladarius Schuler MD WT: OP:DEION/HUMBERTO/MAYO Conf#: [id number]/DID#: [id number] Authenticated by Ladarius Schuler MD On 06/05/2020 03:14:29 PM Electronically Signed by Ladarius Schuler MD on 0 06/05/20 at 1514 PATIENT NAME: VIDA ZAMORA [id number] 2020-06-01 10:15:00-00:00 [facility] ([facility] Discharge Summary REPORT#:[id number] REPORT STATUS: Signed DATE:06/01/20 TIME: 1015 PATIENT: VIDA ZAMORA UNIT #: [id number] ROOM/BED: [address] : [address] AGE: 50 SEX: F ATTEND: Ada Ascencio MD ADM AUTHOR: Ladarius Schuler MD * ALL edits or amendments must be made on the [employer]/Ofelia Feliz document * PCP PCP PCP: 50 yo josafat had a large left ovarian cyst with pain mid abdoment and concern of torsion, Past abnormal pap and none for 10 ye maribeth, No mammmogram Discharge to: home General Information Date of admission: Observation Start Date: 05/31/20 Date of admission: 05/31/20 Discharge date: 06/01/20 Admission diagnosis: Possible torsion of large Ovarian Cyst Discharge diagnosis: Left Ovary 13 cm Cyst with traction to IP ligame nt Cervical polyp Hx of cervix dysplasia Hospital course: Had an operative laparoscopy LSO and Biopsy of C ervix = results are pending Allergies: Allergies: No Known Allergies (Coded, 05/30/20) COVID-19: Discharge Plan CDC criteria met for testing: yes Test performed: yes, result negative Pt. disposition at DC: home Recomm.-Isolat. repeat testing Hold 'CTRL' garcia and click link below to activ ate it Recommendations for Isolation and Repeat Testing : https://www.cdc.gov/coronavirus/2019-ncov/infec tion-control/control- recommendations.html Med Rec Med Rec Discharge meds: Start taking the following new medications: ACETAMINOPHEN (TYLENOL) 500 MG TAB 1,000 MILLIGRAM ORAL EVERY 8 HOURS. Qty = 20 No Refills IBUPROFEN (MOTRIN) 800 MG TAB 800 MILLIGRAM ORAL EVERY 8 HR NEEDED. as nee ded for MILD PAIN (1-3) Qty = 28 No Refills Objective VS/I O Last Documented: Result Date Time Pulse Ox 100 06/01 731 B/P 138/76 06/01 731 B/P Mean 97.0 06/01 731 O2 Delivery Room air 06/01 731 Temp 99.0 06/01 731 Pulse 83 06/01 731 Resp 16 06/01 731 O2 Flow Rate 10.329728 05/31 1207 24 hour I O ending at 0700: 06/01 1900 Intake Total 950.00 1000.00 Output Total 600 265 Balance 350.00 735.00 Intake, IV 600.00 1000.00 Intake, Oral 350 Output, 15 Estimated Blood Loss Output, Urine 600 250 Patient 154 lb Weight Weight Standing scale Measurement Method Patient Weight Weight (lb): 153 Weight (oz): 10.6 Weight (kg): 69.700 General appearance: alert, awake, oriented Results Findings/Data: Laboratory Tests: 06/01 551 Hematology WBC (6.6 - 12.1 K/mm3) 11.8 RBC (3.45 - 5.01 M/mm3) 3.21 L Hgb (10.7 - 13.9 g/dL) 11.5 Hct (32.1 - 42.1 %) 32.9 MCV (84.1 - 94.8 fL) 103 H MCH (27 - 35 pg) 35.8 H MCHC (32.2 - 34.1 gm/dL) 35.0 H RDW (12.4 - 16.5 %) 12.5 Plt Count (133 - 385 K/mm3) 288 MPV (9.1 - 12.7 fl) 10.6 Neut % (Auto) (56.5 - 79.4 %) 64.9 Lymph % (Auto) (14.3 - 34.3 %) 25.3 Meeker % (Auto) (5.1 - 10.4 %) 8.3 Eos % (Auto) (0.1 - 3.0 %) 0.9 Baso % (Auto) (0.1 - 1.0 %) 0.3 Neut # (Auto) (K/mm3) 7.6 Lymph # (Auto) (K/mm3) 3.0 Meeker # (Auto) (K/mm3) 1.0 Eos # (Auto) (K/mm3) 0.10 Baso # (Auto) (K/mm3) 0.0 Results: no new labs Treatments Procedures Lab: Hematology last 24 hrs: 06/01 0551 Hematology WBC (6.6 - 12.1 K/mm3) 11.8 Hgb (10.7 - 13.9 g/dL) 11.5 Hct (32.1 - 42.1 %) 32.9 Plt Count (133 - 385 K/mm3) 288 Neut % (Auto) (56.5 - 79.4 %) 64.9 Discharge Instructions Diet: bland Oral fluid restriction: No Free Text DC Notes Free Text DC Notes: Will follow with Dr Emiliano Ortiz in one week Pap and Mammogram Electronically Signed by Ladarius Schuler MD on at [address] [place] [address] #:[id number] END OF REPORT 2020-05-31 11:44:00-00:00 [facility] ([facility]) Full Op Note REPORT#:[id number] REPORT STATUS: Signed DATE:05/31/20 TIME: 1144 PATIENT: VIDA ZAMORA UNIT #: [id number] ROOM/BED: [address] : 72 AGE: 50 SEX: F ATTEND: Ada Ascencio MD ADM AUTHOR: Ladarius Schuler MD * ALL edits or amendments must be made on the [employer]/computer document * Operative Report ORM Surgeries: Surgery Date and Time: 05/31/20201999 Proposed Primary Procedure: LAPAROSCOPY OPERATI VE WITH THREE PUNCTUR Proposed Secondary Procedure: DIAGNOSTIC DILATI ON AND CURETTAGE Start date: 05/31/20 Start time: 1043 Pre-procedure diagnosis: PELVIC PAIN LEFT OVARIAN CYST N/V DIARRHEA Post-procedure diagnosis: SAME Procedures performed: OPERATIVE LAPROSCOPY LSO CERVIX POLYP BIOPSY Technique/Procedure: LAPAROSCOPIC Primary Surgeon: LADARIUS SCHULER MD Bread Pan Greaser(s): MARIAA PLUMMER MD Anesthesiologist: MICHAEL OVIEDO Anesthesia: general anesthesia Indications: PAIN LARGE 13 CM CYST N/V DIARRHEA Operative findings: LARGE UNILOCULAR 13 CM CYST Complications: none Estimated blood loss in ml's: LESS THAN 10 CC Specimens removed/altered: n one (LEFT TUBE AND OVARY AND ), LEFT TUBE AND OVARY AND 700 CC OF SEROUS FLUID CERVICAL POLYP Cultures sent: No Drain(s)/tube(s): none Implant(s): none Fluids: 900 CRYSTALLOIDS Urine output: 50 CC Approach: laparoscopic Disposition: PACU, MEDSURG Recommendations: OBSERVE OVERNIGHT HOME TOMORROW Electronically Signed by Ladarius Schuler MD on at 1150 RPT #:[id number] END OF REPORT 2020-05-31 10:05:00-00:00 [facility] ([facility] 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 Consult Note REPORT#:[id number] REPORT STATUS: Signed DATE:05/31/20 TIME: 1005 PATIENT: VIDA ZAMORA UNIT #: [id number] ROOM/BED: [address] : [birth year] AGE: 50 SEX: F ATTEND: Ada Ascencio MD ADM AUTHOR: Ladarius Schuler MD * ALL edits or amendments must be made on the Cop[employer]/computer document * History of Present Illness HPI Requesting clinician: Dr Ascencio Reason for consult: Torsion on Ovarian Cyst 13 cm probably left side Chief complaint: Pelvic Pain N?V and Diarrhea HPI: 50 yo G1 and P1; 3 days hist ory of pelvic pain; seen in ER [place] discovered a Ovarian cyst, unilocullar of 13 cm on diameter; returns to same clinic and transfer to ED [facility] due to pain, nausea and vomit ing and diarrhea possible torsion. 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) Past surgical history: denies PSH (Ovarian cyste ctomy; unknown si) Past social history: employed Patient family history: Relation not specified for: Family History: Cancer Family History: Diabetes Medications: Current Hospital Medications: Autonomic Drugs Sig/Arelis Start time Last Medication Dose Route Stop Time Status Admin Rocuronium [place] 5 ML .STK-MED ONE 05/31 946 DC (ZEMURON 10 MG/ML 5 INJ ML VIAL) Cardiovascular Drugs Sig/Arelis Start time Last Medication Dose Route Stop Time Status Admin Lidocaine HCl 0 .STK-MED ONE 05/31 946 DC (XYLOCAINE 2% INJ PF .ROUTE 5 ML) Central Nervous System Agents Sig/Arelis Start time Last Medication Dose Route Stop Time Status Admin Fentanyl Citrate 0 .STK-MED ONE 05/31 946 DC (SUBLIMAZE 5 ML) .ROUTE Midazolam HCl 0 .STK-MED ONE 05/31 946 DC (VERSED 2 MG/2 ML) .ROUTE Propofol 0 .STK-MED ONE 05/31 946 DC (DIPRIVAN 10MG/ML 20 .ROUTE ML AMP) Ketorolac 30 MG Q6H PRN PRN 05/31 15 AC 05/31 Tromethamine IV 06/05 0014 0600 (TORADOL 30 MG SYRINGE) Electrolytic, Caloric, And Robin Sig/Arelis Start time Last Medication Dose Route Stop Time Status Admin Lactated Ringer's 1,000 ML ASDIR 05/31 15 AC 05/31 (LACTATED RINGERS) IV 07/30 0014 0030 Gastrointestinal Drugs Sig/Arelis Start time Last Medication Dose Route Stop Time Status Admin Ondansetron HCl 4 MG Q6H PRN PRN 05/31 15 AC 05/31 (ZOFRAN 2 MG/ML 4 MG IV 07/30 0014 0915 SYR) Local Anesthetics (Parenteral) Sig/Raelis Start time Last Medication Dose Route Stop Time Status Admin Bupivacaine HCl/ 0 .STK-MED ONE 05/31 946 DC Epinephrine Bitart .ROUTE (SENSORCAINE HCL 0.25%- EPI 1:200,000 - 50 ML) Allergies: Coded Allergies: No Known Allergies (05/30/20) Objective Physical Exam VS/I O: Last Documented: Result Date Time Pulse Ox 99 05/31 935 B/P 140/85 05/31 935 Temp 98.3 05/31 935 Pulse 75 05/31 935 Resp 20 05/31 935 B/P Mean 110.0 05/31 900 O2 Delivery Room air 05/31 312 24 hour I O ending at 0700: 05/31 0700 05/30 1900 Intake Total 300.00 Output Total Balance 300.00 Intake, IV 300.00 Patient 154 lb Weight Weight Standing scale Measurement Method Patient Weight Weight (lb): 153 Weight (oz): 10.6 Weight (kg): 69.700 General appearance: mental status normal HEENT: moist mucosal membranes Neck: full range of motion Breast: symmetrical Abdomen: normal bowel sounds, non-tender Genitourinary: no bladder distention Extremities: full range of motion Lymphatics: no lymphadenopathy External Genitalia: vulvar exam normal Vagina: normal Cervix: normal Uterus: normal Adnexal: Left - Mass, Left - Tender Rectal: normal Results Findings/Data: Laboratory Tests 05/31 107 Chemistry Sodium (135 - 145 mEq/L) 140 Potassium (3.5 - 5.0 mEq/L) 3.5 Chloride (100 - 115 mEq/L) 105 Carbon Dioxide (22 - 31 mEq/L) 28 Anion Gap (10 - 20) 10.70 BUN (7 - 18 mg/dL) 16 Creatinine (0.5 - 1.0 mg/dL) 1.0 Glomerular Filtr Rate (>60 ml/min) 59 L Glucose (65 - 110 mg/dL) 110 Calcium (8.4 - 10.2 mg/dL) 8.0 L Total Bilirubin (0.2 - 1.0 mg/dL) 0.3 AST (15 - 37 units/L) 30 ALT (12 - 78 units/L) 49 Total Alk Phosphatase (46 - 116 units/L) 75 Total Protein (6.3 - 8.2 gm/dL) 6.6 Albumin (3.4 - 4.8 gm/dL) 3.6 Laboratory Tests 05/31 107 Hematology WBC (6.6 - 12.1 K/mm3) 9.0 RBC (3.45 - 5.01 M/mm3) 3.65 Hgb (10.7 - 13.9 g/dL) 12.9 Hct (32.1 - 42.1 %) 37.6 MCV (84.1 - 94.8 fL) 103 H MCH (27 - 35 pg) 35.3 H MCHC (32.2 - 34.1 gm/dL) 34.3 H RDW (12.4 - 16.5 %) 12.9 Plt Count (133 - 385 K/mm3) 279 MPV (9.1 - 12.7 fl) 10.3 Neut % (Auto) (56.5 - 79.4 %) 43.3 L Lymph % (Auto) (14.3 - 34.3 %) 43.5 H Meeker % (Auto) (5.1 - 10.4 %) 8.5 Eos % (Auto) (0.1 - 3.0 %) 3.7 H Baso % (Auto) (0.1 - 1.0 %) 0.8 Neut # (Auto) (K/mm3) 3.9 Lymph # (Auto) (K/mm3) 3.9 Meeker # (Auto) (K/mm3) 0.8 Eos # (Auto) (K/mm3) 0.33 Baso # (Auto) (K/mm3) 0.1 Laboratory Tests 05/31 107 Miscellaneous Maternal Serum HCG <1 Laboratory Tests 05/31 10 Serology SARS-CoV-2 Ag (Rapid) (NEGATIVE) NEGATIVE Laboratory Tests 05/31 10 Urines Urine HCG, Qual NEGATIVE Results: no new labs Treatment Prophylaxis Treatment Prophylaxis Velazquez status: none Other: Pelvic Pain Torsion of probable left ovary Plan Laparoscopy Left salpingo ophorectomy vs la parotomy and indicated procedures Electronically Signed by Ladarius Schuler MD on at 1013 RPT #:[id number] END OF REPORT 2020-05-30 23:53:00-00:00 [facility] ([facility] OB Admission / H P REPORT#:[id number] REPORT STATUS: Signed DATE:05/30/20 TIME: 2353 PATIENT: VIDA ZAMORA UNIT #: [id number] ROOM/BED: [address] : [birth year] AGE: 50 SEX: F ATTEND: Ada Ascencio MD ADM AUTHOR: Jennyfer Ascencio MD * ALL edits or amendments must be made on the el ectronic/computer document * OB Admission H P Hx Nursing Documentation Review Nursing data: The data set between the solid lines has been im ported from nursing documentation. Any exceptions have been noted be low under Provider comments. Current data Steroids prior to arrival: ROM date: ROM time: EGA (weeks/days): EGA at admit (weeks): EDC date: Prior history : Para: Term: : Abortions spontaneous: Abortions induced: Living children: Ectopic: Stillbirths: Live births: deaths: Number of previous C/S: Reported maternal labs/data Blood type: Rh type: Rubella: Hepatitis B: HIV exposure test: VDRL: Group B beta strep: Rho(D) immune globulin this preg: Monitor mode - UA: Feeding preference: Provider comments on imported nursing data: [] Chief complaint: elevated bl ood pressure (intractable abdominal pain), diarrhea, nausea and vomiting HPI: 50 y/o ( @ term) who has not seen an MD for 10 years came to urgent care with severe abdominal pain for 3 days. She was d ischarged and went back today for worsening abdominal pain and n/v, diarrhea x 2 days. history: : 1 Term: 1 Living children: 1 Past medical history: hypertension (did not know she had HTN) Past surgical history: appendectomy (laparoscopi c ov), tonsils/adenoids, laparoscopic ovarian cystectomy; unknown side Social history: , alcohol use, smoker Family history Relation not specified for: Family History: Cancer Family History: Diabetes Medications: denies Allergies Coded Allergies: No Known Allergies (05/30/20) Comments: jose alejandro hx: x 1@ term, no STI's, states she had abnormal paps and colpos, last colpo 10 yrs ago and states biopsies came back n ormal Review of Systems GI: Reports: abdominal pain, diarrhea, nausea, vomit ing. : Reports: previous pregnancies. Denies: . Objective General VS: Last Documented: Result Date Time Pulse Ox 97 05/30 2245 B/P 146/96 05/30 2245 B/P Mean 112 05/30 2245 O2 Delivery Room air 05/30 2245 Temp 98.4 05/30 2245 Pulse 78 05/30 2245 Resp 18 05/30 2245 Vital Signs Date Temp Pulse Resp B/P B/P Mean Pulse Ox FiO2 05/30 98.4 78 18 146/96 112 97 Patient Weight Weight (lb): 153 Weight (oz): 10.6 Weight (kg): 69.700 Physical Exam Cardiac: regular rate and rh ythm, no clinically sig murmur, no gallops, no rubs Abdomen: no guarding, no rebound tenderness Pelvic exam: Exam: soft (mobile mass palpated midline) Lower extremities: Leigh's sign: negative Calf tenderness: negative Diagnosis, Assessment Plan Diagnosis, Assessment Plan Free Text A P: A: 50 y/o with 13cm pelvic mass, thin yosvany d, fluid filled; origination most likely left ovary on US, suspected torsion; mpain x 3 days with n/v, diarrhea, HTN, has not been to MD in 10 yrs, tob acco use -transferred from [place] urgent care P: pain mgmt covid testing labs will discuss with Dr Lorena NÚÑEZ after midnight money manager to OR in AM Electronically Signed by Jennyfer Ascencio MD on 05/12 at 0007 RPT #:[id number] END OF REPORT
[2023-06-07] MEDS ORDERED: MORPHINE 4 MG/ML SYR ONE (09:52)
[2023-06-07] MEDS ORDERED: FAMOTIDINE 20 MG/2 ML VIAL IV ONE (09:53)
[2023-06-07] MEDS ORDERED: NA CHLORIDE 0.9% 1,000 ML ONE (09:53)
[2023-06-07 10:00] LABS: Absolute Lymphocytes (CBC) 2.5 K/uL (0.7-4.9); Hematocrit 38.9 % (36.0-45.0); Lymphocytes % 15.8 % (15.3-44.8); MCV 93.8 fL (80-100); MPV 8.3 fL (7.6-11.3); Platelets 262 thou/uL (152-406); RBC Red Blood Cell Count 4.14 M/uL (3.86-4.86)
[2023-06-07 10:09] LABS: Albumin 3.7 g/dL (3.4-5.0); Bilirubin Total 0.5 mg/dL (0.2-1.0); Potassium 3.3 mEq/L (3.5-5.1); Protein, Total 7.4 g/dL (6.4-8.2)
[2023-06-07] MEDS ORDERED: HYDROMORPHONE HCL 1 MG/ML INJ ONE ×2 (10:33→15:11)
[2023-06-07 10:39] LABS: Specific Gravity 1.012 (1.005-1.030)
[2023-06-07 10:46] LABS: Specific Gravity 1.012 (1.005-1.030); Urine Bacteria None Seen /HPF (<20); Urine Bilirubin NEGATIVE (Negative); Urine Blood Trace (Negative); Urine Clarity Clear (Clear); Urine Color Light-Yellow (Yellow); Urine Glucose NEGATIVE (Negative); Urine Mucus Slight /HPF (None Seen); Urine Protein NEGATIVE (Negative); Urine Urobilinogen Normal (Normal)
--- NOTE | 2023-06-07 11:07 | RAD REPORT ---
EXAM DESCRIPTION: CT - Abdomen Pelvis W Contrast - 06/07/2023 10:33 am CLINICAL HISTORY: ABD PAIN COMPARISON: Abdomen Pelvis W Contrast dated 01/16/2022; Abdomen Pelvis W Contrast dated 12/20/2021 ; CT ABD PELVIS W CONTRAST dated 05/27/2009 TECHNIQUE: Thin cut axial CT imaging of the abdomen and pelvis was performed following intravenous a dministration of 100 mL Isovue 300. Multiplanar reformats were generated and reviewed. All CT scans are performed using dose optimization technique as appropriate and may include automated exposure control or mA/KV adjustment according to patient size. FINDINGS: No suspicious findings in the lung bases. The liver, spleen, adrenal glands, and pancreas show no suspicious findings. Gallbladder is moderatel y distended. Prominent common bile duct measuring 8 millimeter in caliber. Symmetric renal function is seen with no hydronephrosis or suspicious renal mass. Bilateral small lion al calculi, largest is at the superior pole measuring 5 millimeter. No dilated bowel loops or bowel wall thickening. No free air, free fluid or inflammatory stranding. N o hernia, mass or bulky lymphadenopathy. The urinary bladder is without significant finding. Status p ost hysterectomy. No suspicious bony findings. IMPRESSION: Moderately distended gallbladder without adjacent inflammatory changes. Common bile duct is prominent measuring 8 millimeter in caliber. Please correlate with bilirubin leve ls. Nonobstructing bilateral renal calculi.
--- NOTE | 2023-06-07 12:16 | RAD REPORT ---
EXAM DESCRIPTION: US - Abdomen Exam Limited - 06/07/2023 11:45 am CLINICAL HISTORY: ABD PAIN COMPARISON: Abdomen Pelvis W Contrast dated 06/07/2023 TECHNIQUE: Sonographic grayscale and color flow images of the right upper abdominal quadrant were obtained. FINDINGS: The gallbladder demonstrates no gallstones. No pericholecystic fluid or gallbladder wall t hickening. The common bile duct is at the upper limit of normal in caliber measuring 6 mm. The liver demonstrates no findings of intrahepatic biliary dilatation. IMPRESSION: Upper limit of normal caliber of the common bile duct, 6 millimeter.
[2023-06-07] MEDS ORDERED: PROMETHAZINE INJ 25 MG/ML AMP ONE (12:29)
[2023-06-07] MEDS ORDERED: DICYCLOMINE HCL 20 MG/2 ML AMP IM ONE (14:13)
[2023-06-07] MEDS ORDERED: ONDANSETRON 4 MG/2 ML VIAL ONE (14:13)
--- NOTE | 2023-06-07 14:23 | EDPHYS ---
Physician Documentation [facility] Name: Kira Last Age: 53 yrs Sex: Female : 1970 Arrival Date: 06/07/2023 Time: 09:34 Bed 18 Private MD: ED Physician Abdiel Armendariz HPI: 06/07 11:06 This 53 yrs old Female presents to ER via Ambulatory with complaints of Abdominal Pain. sb4 11:06 The patient presents with abdominal pain in the lower abdomen. Onset: The sb4 symptoms/episode began/occurred this morning. The symptoms do not radiate. Associated signs and symptoms: Pertinent positives: nausea, vomiting, and diarrhea, Pertinent negatives: chest pain, fever. The symptoms are described as constant. Modifying factors: The symptoms are alleviated by nothing, the symptoms are aggravated by pressure, touching the area. Severity of pain: in the emergency department the pain is a 10 / 10. The patient has not experienced similar symptoms in the past. The patient has not recently seen a physician. 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 - Social history:: Smoking status: Patient reports the use of cigarette tobacco products, smokes one-half pack cigarettes per day. ROS: 11:06 Constitutional: Negative for fever, chills, and weight loss. sb4 11:06 Abdomen/GI: Positive for abdominal pain, nausea, vomiting, and diarrhea. 11:06 All other systems are negative. Exam: 11:06 Head/Face: Normocephalic, atraumatic. Eyes: Extra-ocular motions intact. Periorbital sb4 areas with no swelling, redness, or edema. Cardiovascular: Regular rate and rhythm with a normal S1 and S2. Respiratory: Lungs have equal breath sounds bilaterally, clear to auscultation and percussion. No rales, rhonchi or wheezes noted. No increased work of breathing, no retractions or nasal flaring. Skin: Warm, dry with normal turgor. Normal color with no rashes, no lesions, and no evidence of cellulitis. MS/ Extremity: Pulses equal, no cyanosis. Neurovascular intact. Full, normal range of motion. 11:06 Constitutional: The patient appears alert, awake, in obvious distress, in obvious pain, restless, uncomfortable. 11:06 Abdomen/GI: Inspection: abdomen appears normal, Bowel sounds: diminished, in all quadrants, Palpation: soft, in all quadrants, moderate abdominal tenderness, in the suprapubic area. Vital Signs: 09:36 Pulse 72; Resp 15; Temp 98.5; Pulse Ox 100% ; Weight 54.43 kg; Height 5 ft. 5 in. ; jl7 Pain 10/10; 10:53 BP 154 / 80; ap3 09:36 Body Mass Index 19.97 (54.43 kg, 165.1 cm) jl7 09:36 Pain Scale: Adult jl7 MDM: 09:36 Patient medically screened. sb4 11:06 Differential diagnosis: bowel obstruction, diverticulitis, Mesenteric ischemia or sb4 infarction, non-specific abd pain, Peptic Ulcer Disease, urinary tract infection, colitis. 13:19 Data reviewed: vital signs, nurses notes, lab test result(s), radiologic studies, and sb4 as a result, I will discharge patient. Consideration of Admission/Observation Escalation of care including admission/observation considered. Historians other than the Patient:. Historians other than the Patient: Family Member: mother and friend. 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 14:36 ED course: patient with negative workup. reevaluated and redid abdominal exam. still sb4 has pain but improved. ordered lactate to rule out ischemic colitis, which was normal. will dc home with GI followup. 06/07 09:37 Order name: CBC with Diff; Complete Time: 10:08 sb4 06/07 09:37 Order name: CMP; Complete Time: 10: sb4 06/07 09:37 Order name: Lipase; Complete Time: 10:09 4 06/07 09:37 Order name: Test, Urine; Complete Time: 10:46 sb4 06/07 09:37 Order name: UAM; Complete Time: 10:48 4 06/07 13:35 Order name: Lactate w/ 2H reflex if indic.; Complete Time: 14:19 4 06/07 09:37 Order name: CT Abd/Pelvis - IV Contrast Only; Complete Time: 11:09 [facility] 06/07 11:10 Order name: US Abdomen Limited; Complete Time: 12:17 sb4 06/07 09:37 Order name: IV Saline Lock; Complete Time: 09:38 sb4 06/07 09:37 Order name: Labs collected and sent; Complete Time: 09:49 sb Administered Medications: 09:51 Drug: NS 0.9% IV 1000 ml Route: IV; Rate: 1 bolus; Site: left antecubital; ap3 16:02 Follow up: IV Status: Completed infusion ap3 09:51 Drug: Famotidine IVP 20 mg Route: IVP; Site: left antecubital; ap3 16:02 Follow up: Response: No adverse reaction ap3 09:51 Drug: morphine IVP or IV 4 mg Route: IVP; Infused Over: 4 mins; Site: left antecubital; ap3 16:02 Follow up: Response: No adverse reaction ap3 10:27 Drug: HYDROmorphone IVP 1 mg Route: IVP; Site: left antecubital; ap3 16:02 Follow up: Response: No adverse reaction; Pain is decreased ap3 12:23 Drug: Promethazine IVP 12.5 mg Route: IVP; Site: left antecubital; ap3 16:02 Follow up: Response: No adverse reaction ap3 14:06 Drug: Dicyclomine IM 20 mg Route: IM; Site: right gluteus; ap3 16:02 Follow up: Response: No adverse reaction ap3 14:07 Drug: Ondansetron IVP 4 mg Route: IVP; Site: left antecubital; ap3 16:02 Follow up: Response: No adverse reaction ap3 15:04 Drug: HYDROmorphone IVP 1 mg Route: IVP; Site: left antecubital; ap3 16:01 Follow up: Response: No adverse reaction; Pain is decreased ap3 15:04 Drug: metoCLOPramide IVP 10 mg Route: IVP; Site: left antecubital; ap3 16:01 Follow up: Response: No adverse reaction ap3 Disposition Summary: 06/07/23 14:22 Discharge Ordered Location: Home sb4 Problem: new sb4 Symptoms: have improved sb4 Condition: Stable sb4 Diagnosis - Lower abdominal pain, unspecified sb4 - Noninfective gastroenteritis and colitis, unspecified sb4 Followup: sb4 - With: Papi Gaviria MD - When: 2 - 3 days - Reason: Recheck today's complaints, Re-evaluation by your physician Discharge Instructions: - Discharge Summary Sheet sb4 - Viral Gastroenteritis, Adult sb4 - Abdominal Pain, Adult, [id number] sb4 Forms: - Medication Reconciliation Form sb4 - Thank You Letter sb4 - Antibiotic Education sb4 - Prescription Opioid Use sb4 - Patient Portal Instructions sb4 - Leadership Thank You Letter sb4 Prescriptions: - Zofran 4 mg Oral Tablet - take 1 tablet by ORAL route every 12 hours As needed; 20 tablet; Refills: 0, sb4 Product Selection Permitted - dicyclomine 20 mg Oral Tablet - take 1 tablet by ORAL route 3 times per day; 15 tablet; Refills: 0, Product sb4 Selection Permitted Signatures: Dispatcher [employer] Joseph Vicente RN RN modesta7 Carolann Lance RN RN ap3 Rosalinda España, DIAN PARuma sb4
--- NOTE | 2023-06-07 14:23 | ER ---
Nurse's Notes [facility] Name: Kira Last Age: 53 yrs Sex: Female : 1970 Arrival Date: 06/07/2023 Time: 09:34 Bed 18 Private MD: Diagnosis: Lower abdominal pain, unspecified;Noninfective gastroenteritis and colitis, unspecified Presentation: 06/07 09:36 Chief complaint: EMS states: Diffuse abdominal pain since 0530 this morning, N/V/D. jl7 Coronavirus screen: At this time, the client does not indicate any symptoms associated with coronavirus-19. Ebola Screen: No symptoms or risks identified at this time. Initial Sepsis Screen: Does the patient meet any 2 criteria? No. Patient's initial sepsis screen is negative. Does the patient have a suspected source of infection? No. Patient's initial sepsis screen is negative. Risk Assessment: Do you want to hurt yourself or someone else? Patient reports no desire to harm self or others. Onset of symptoms was June 07, 2023 at 05:30. 09:36 Method Of Arrival: Ambulatory [facility] 09:36 Acuity: SATNAM 3 jl7 Triage Assessment: 09:39 General: Appears in no apparent distress. uncomfortable, Behavior is cooperative, jl7 restless. Pain: Complains of pain in abdomen diffusely. GI: Abdomen is non-distended, Reports diarrhea, nausea, vomiting. 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 - Social history:: Smoking status: Patient reports the use of cigarette tobacco products, smokes one-half pack cigarettes per day. Screenin:32 [facility] ED Fall Risk Assessment (Adult) History of falling in the last 3 months, ap3 including since admission No falls in past 3 months (0 pts). Abuse screen: Denies threats or abuse. Nutritional screening: No deficits noted. Tuberculosis screening: No symptoms or risk factors identified. Assessment: 14:45 General: Appears uncomfortable, Behavior is restless. Pain: Complains of pain in ap3 suprapubic area and abdomen. Neuro: Level of Consciousness is awake, alert, obeys commands, Oriented to person, place, time, situation. Respiratory: Airway is patent Respiratory effort is even, unlabored, Respiratory pattern is regular, symmetrical. 16:00 GI: Bowel sounds present X 4 quads. Abd is soft. ap3 Vital Signs: 09:36 Pulse 72; Resp 15; Temp 98.5; Pulse Ox 100% ; Weight 54.43 kg; Height 5 ft. 5 in. ; jl7 Pain 10/10; 10:53 BP 154 / 80; ap3 09:36 Body Mass Index 19.97 (54.43 kg, 165.1 cm) jl7 09:36 Pain Scale: Adult jl7 ED Course: 09:36 Patient arrived in ED. jl7 09:36 Rosalinda España PA-C is PHCP. sb4 09:36 Abdiel Armendariz MD is Attending Physician. sb4 09:36 Inserted saline lock: 22 gauge in left antecubital area, using aseptic technique. Blood ap3 collected. 09:39 Triage completed. jl7 09:39 Arm band placed on right wrist. jl7 10:27 Carolann Lance, RN is Primary Nurse. ap3 10:35 CT Abd/Pelvis - IV Contrast Only In Process Unspecified. EDMS 11:47 US Abdomen Limited In Process Unspecified. EDMS 14:21 Papi Gaviria MD is Referral Physician. sb4 15:34 No provider procedures requiring assistance completed. IV discontinued, intact, ap3 bleeding controlled, No redness/swelling at site. Pressure dressing applied. 15:34 Patient has correct armband on for positive identification. Placed in gown. Bed in low ap3 position. Call light in reach. Side rails up X 1. Side rails up X2. Pulse ox on. NIBP on. Door closed. Noise minimized. 16:01 Provided Education on: discharge instructions. ap3 Administered Medications: 09:51 Drug: NS 0.9% IV 1000 ml Route: IV; Rate: 1 bolus; Site: left antecubital; ap3 16:02 Follow up: IV Status: Completed infusion ap3 09:51 Drug: Famotidine IVP 20 mg Route: IVP; Site: left antecubital; ap3 16:02 Follow up: Response: No adverse reaction ap3 09:51 Drug: morphine IVP or IV 4 mg Route: IVP; Infused Over: 4 mins; Site: left antecubital; ap3 16:02 Follow up: Response: No adverse reaction ap3 10:27 Drug: HYDROmorphone IVP 1 mg Route: IVP; Site: left antecubital; ap3 16:02 Follow up: Response: No adverse reaction; Pain is decreased ap3 12:23 Drug: Promethazine IVP 12.5 mg Route: IVP; Site: left antecubital; ap3 16:02 Follow up: Response: No adverse reaction ap3 14:06 Drug: Dicyclomine IM 20 mg Route: IM; Site: right gluteus; ap3 16:02 Follow up: Response: No adverse reaction ap3 14:07 Drug: Ondansetron IVP 4 mg Route: IVP; Site: left antecubital; ap3 16:02 Follow up: Response: No adverse reaction ap3 15:04 Drug: HYDROmorphone IVP 1 mg Route: IVP; Site: left antecubital; ap3 16:01 Follow up: Response: No adverse reaction; Pain is decreased ap3 15:04 Drug: metoCLOPramide IVP 10 mg Route: IVP; Site: left antecubital; ap3 16:01 Follow up: Response: No adverse reaction ap3 Medication: 16:01 VIS not applicable for this client. ap3 Outcome: 14:22 Discharge ordered by . sb4 15:35 Patient left the ED. hb 16:01 Discharged to home via wheelchair, with family. ap3 16:01 Condition: good 16:01 Discharge instructions given to patient, Instructed on discharge instructions, follow up and referral plans. medication usage, Demonstrated understanding of instructions, follow-up care, medications, Prescriptions given X 2. Signatures: Dispatcher [employer] EDOlga Mcfarlane RN RN hb Leal, Jahala, RN RN jl7 Prokisch, Amanda, RN RN ap3 Rosalinda España, PARuma PARuma sb4
[2023-06-07] MEDS ORDERED: METOCLOPRAMIDE 10 MG/2mL INJ ONE (15:11)
[2023-06-07 15:56] VITALS: TEMP 98.5; O2SAT 100
[2023-06-07 15:58] VITALS: BP 154/80
== END 2023-06-07 15:35 | disposition home or self-care (01) ==
LOC: ER 09:34
DX: K52.9 Noninfective gastroenteritis and colitis, unspecified (principal); F17.210 Nicotine dependence, cigarettes, uncomplicated
CPT/HCPCS: 96361; 85025; 81001; 36415; 81025; 83605; 83690; 80053; 74177; 76705; 96375; 96372; 96374; 99284; Q9967; J2550; J2765; J0500; J1170 ×2; J2405; J7030

== ENCOUNTER 2024-08-22 10:30 | Emergency (ER) | payer MEDICARE ==
[2024-08-22] MEDS ORDERED: FAMOTIDINE 20 MG/2 ML VIAL IV ONE (11:56)
[2024-08-22] MEDS ORDERED: ONDANSETRON 4 MG/2 ML VIAL ONE (11:56)
[2024-08-22] MEDS ORDERED: NA CHLORIDE 0.9% 1,000 ML ONE (11:56)
[2024-08-22 12:09] LABS: Absolute Lymphocytes (CBC) 1.5 K/uL (0.7-4.9); Absolute Monocytes 0.4 K/uL (0.1-1.3); Absolute Neutrophil 5.3 K/uL (1.8-8.0); Basophils % 0.7 % (0-1.3); Eosinophils % 0.4 % (0-4.4); Hematocrit 37.9 % (36.0-45.0); Hemoglobin 12.6 g/dL (12.0-15.0); Lymphocytes % 20.8 % (15.3-44.8); MCH 32.8 pg (27.0-35.0); MCHC 33.4 g/dL (32.0-36.0); MCV 98.1 fL (80-100); MPV 8.1 fL (7.6-11.3); Monocytes % 5.3 % (3.3-12.3); Neutrophils % 72.8 % (41.7-73.7); Platelets 258 thou/uL (152-406); RBC Red Blood Cell Count 3.86 M/uL (3.86-4.86); Red Cell Distribution Width 13.9 % (12.1-15.2)
[2024-08-22 12:37] LABS: Albumin 4.2 g/dL (3.4-5.0); Albumin/Globulin Ratio 1.1 (1.1-1.8); Anion Gap 8.5 mEq/L (5.0-15.0); Bilirubin Total 0.6 mg/dL (0.2-1.0); Protein, Total 8.2 g/dL (6.4-8.2)
[2024-08-22 12:38] LABS: Potassium 3.5 mEq/L (3.5-5.1)
[2024-08-22 13:07] LABS: Specific Gravity 1.012 (1.005-1.030); Sqamous Epithelial None Seen /HPF (None Seen); Urine Bacteria <20 /HPF (<20); Urine Bilirubin NEGATIVE (Negative); Urine Blood Negative (Negative); Urine Clarity Turbid (Clear); Urine Color Yellow (Yellow); Urine Culture Reflex Order NOT NEEDED; Urine Glucose NEGATIVE (Negative); Urine Ketones NEGATIVE (Negative); Urine Microscopic Reflex YN ORDER UMIC; Urine Nitrite NEGATIVE (Negative); Urine Protein NEGATIVE (Negative); Urine Urobilinogen Normal (Normal); Urine WBC <5 /HPF (<5)
--- NOTE | 2024-08-22 14:04 | RAD REPORT ---
EXAMINATION: CT ABDOMEN AND PELVIS WITH CONTRAST CLINICAL INDICATION: Female, 54 years old.ABD PAIN TECHNIQUE: CT abdomen and pelvis was performed, after the administration of IV contrast, [facility]. Axial, sagittal and coronal reconstructions were obtained. One or more of the following dose reduction techniques were used: Automated exposure control, adjustment of the mA and/o r kV according to patient size, and/or iterative reconstruction. Unless otherwise specified, incidental findings do not require dedicated imaging follow-up. [id number]. COMPARISON: 09/08/2023 FINDINGS: LOWER CHEST: The visualized lung bases are clear. LIVER: Normal in size and contour. No focal lesion. GALLBLADDER/BILE DUCT: Prominent extra hepatic common bile duct is similar to prior.? PANCREAS: No significant abnormality. SPLEEN: Benign-appearing low-density splenic lesions. ADRENALS: Normal; no mass. KIDNEYS AND URETERS: Normal size and contour. No hydronephrosis. Nonobstructive bilateral nephrolithi asis. GASTROINTESTINAL TRACT: Stomach is non-dilated. Small bowel has normal course and caliber. No colonic wall thickening or pericolonic inflammatory changes. PERITONEUM: No ascites. LYMPH NODES: No lymphadenopathy. ABDOMINAL AORTA AND OTHER VESSELS: Normal caliber aorta and IVC. URINARY BLADDER: Normal contour. REPRODUCTIVE ORGANS: No pathologic process MUSCULOSKELETAL: No acute or suspicious osseous abnormality. ADDITIONAL FINDINGS: None. IMPRESSION: No acute or significant abnormalities seen in the abdomen or pelvis.
--- NOTE | 2024-08-22 14:24 | EDPHYS ---
Physician Documentation [facility] Name: Kira Last Age: 54 yrs Sex: Female : 1970 Arrival Date: 08/22/2024 Time: 10:30 Bed 18 Private MD: GISELE Physician Abdiel Armendariz HPI: 08/22 10:37 This 54 yrs old Female presents to ER via Unassigned with complaints of kb Vomiting/Diarrhea, Abdominal Pain. 10:37 Pt is a 54 year old female who presents for nausea, vomiting, diarrhea for 4 days. kb Reports chills, abd pain and bodyaches. Had IV fluids at [facility] yesterday and felt better until this morning when she started vomiting again. Reports history of colitis. Historical: - Allergies: 10:39 Demerol; tm6 - PMHx: 10:39 Colitis; Malignant uterine mass; tm6 - PSHx: 10:39 Appendectomy; hysterectomy; tm6 - Immunization history:: Flu vaccine is not up to date. - Infectious Disease History:: Denies. CDIFF, e. coli. - Social history:: Smoking status: Reported history of juuling and/or vaping. Patient/guardian denies using alcohol. ROS: 10:38 Constitutional: As per HPI kb Exam: 14:22 Constitutional: This is a well developed, well nourished patient who is awake, alert, kb and in no acute distress. Head/Face: Normocephalic, atraumatic. ENT: Moist Mucous membranes Cardiovascular: Regular rate Respiratory: Respirations even and unlabored. No increased work of breathing. Talking in full sentences Skin: Warm, dry with normal turgor. Normal color. MS/ Extremity: Pulses equal, no cyanosis. Neurovascular intact. Full, normal range of motion. Neuro: Awake and alert, GCS 15, oriented to person, place, time, and situation. 14:22 Abdomen/GI: Inspection: abdomen appears normal, Bowel sounds: normal, Palpation: soft, in all quadrants, mild abdominal tenderness, in the right upper quadrant and left upper quadrant, Vital Signs: 10:40 Resp 19; Temp 98.1(TE); Weight 51.71 kg; Height 5 ft. 5 in. ; Pain 7/10; tm6 10:48 BP 164 / 104; Pulse 64; Pulse Ox 97% on R/A; MAP 120 mmHg; tm6 12:45 BP 123 / 77; Pulse 62; Resp 16; Pulse Ox 100% ; db 14:00 BP 123 / 89; Pulse 68; Resp 16; Pulse Ox 100% on R/A; db 10:40 Body Mass Index 18.97 (51.71 kg, 165.1 cm) tm6 10:40 Pain Scale: Adult tm6 MDM: 10:32 Medical Screening Exam initiated kb 13:45 ED course: Pt updated on labs results. Awaiting CT scan. kb 14:23 Differential diagnosis: Nonspecific abd pain, gastritis, viral gastroenteritis, kb colitis, GERD. Data reviewed: vital signs, nurses notes. Historians other than the Patient: Friend: friend. Counseling: I had a detailed discussion with the patient and/or guardian regarding the historical points, exam findings, and any diagnostic results supporting the discharge/admit diagnosis, lab results, radiology results, the need for outpatient follow up, a family practitioner, to return to the emergency department if symptoms worsen or persist or if there are any questions or concerns that arise at home. Response to treatment: the patient's symptoms have markedly improved after treatment. 08/22 10:41 Order name: CBC with Diff; Complete Time: 12:11 kb 08/22 10:41 Order name: CMP; Complete Time: 12:40 kb 08/22 10:41 Order name: Lipase; Complete Time: 12:40 kb 08/22 10:41 Order name: Urinalysis w/ reflexes; Complete Time: 13:26 kb 08/22 10:41 Order name: CT Abd/Pelvis - IV Contrast Only; Complete Time: 14:04 kb 08/22 10:41 Order name: IV Saline Lock; Complete Time: 13:36 kb 08/22 10:41 Order name: Labs collected and sent; Complete Time: 12:27 kb Administered Medications: 13:30 Drug: Famotidine IVP 20 mg IVP once; dilute with 10 mL 0.9% NaCl; give over 2 minutes db Route: IVP; Site: right antecubital; 14:51 Follow up: Response: No adverse reaction db 13:30 Drug: Ondansetron IVP 4 mg IVP once; over 2 minutes Route: IVP; Site: right antecubital;db 14:51 Follow up: Response: No adverse reaction db 13:30 Drug: NS 0.9% IV 1000 ml IV at 1 bolus Per protocol; to be given as a bolus over 60 db minutes Route: IV; Rate: 1 bolus; Site: right antecubital; 14:51 Follow up: Response: No adverse reaction; IV Status: Completed infusion; IV Intake: db 1000ml Disposition Summary: 08/22/24 14:24 Discharge Ordered Notes: Location: Home kb Condition: Stable kb Diagnosis - Noninfective gastroenteritis and colitis, unspecified kb Followup: kb - With: Emergency Department - When: As needed - Reason: Worsening of condition Followup: kb - With: Private Physician - When: 2 - 3 days - Reason: Recheck today's complaints, Continuance of care, Re-evaluation by your physician Discharge Instructions: - Discharge Summary Sheet kb - Food Choices to Help Relieve Diarrhea, Adult kb - Viral Gastroenteritis, Adult, [id number] kb Forms: - Medication Reconciliation Form kb - Antibiotic Education kb - Prescription Opioid Use kb - Patient Portal Instructions kb - Leadership Thank You Letter kb Prescriptions: - Zofran 4 mg Oral tablet - take 1 tablet ORAL route every 6 hours As needed; 20 tablet; Refills: 0, kb Product Selection Permitted - dicyclomine 20 mg Oral tablet - take 1 tablet ORAL route 4 times per day As needed; 20 tablet; Refills: 0, kb Product Selection Permitted Signatures: Dispatcher [employer] Radha Mcconnell, TOOL POLISHING MACHINE OPERATOR-C TOOL POLISHING MACHINE OPERATOR-Elsi Olivo, RN RN db Marisol Lanier RN RN tm6 Corrections: (The following items were deleted from the chart) 10:42 10:42 Abdomen Pelvis W Con+CT.RAD.BRZ ordered. ZANA SPANN
--- NOTE | 2024-08-22 14:24 | ER ---
Nurse's Notes [facility] Name: Kira Last Age: 54 yrs Sex: Female : 1970 Arrival Date: 08/22/2024 Time: 10:30 Bed 18 Private MD: Diagnosis: Noninfective gastroenteritis and colitis, unspecified Presentation: 08/22 10:39 Chief complaint: Patient states: n/v/d x4 days. Chills, body aches, central abdominal tm6 pain. Coronavirus screen: Client denies travel out of the [place] in the last 14 days. Ebola Screen: Patient negative for fever greater than or equal to 101.5 degrees Fahrenheit, and additional compatible Ebola Virus Disease symptoms Patient denies exposure to infectious person. Patient denies travel to an Ebola-affected area in the 21 days before illness onset. No symptoms or risks identified at this time. Initial Sepsis Screen: Does the patient meet any 2 criteria? No. Patient's initial sepsis screen is negative. Does the patient have a suspected source of infection? No. Patient's initial sepsis screen is negative. Risk Assessment: Do you want to hurt yourself or someone else? Patient reports no desire to harm self or others. Onset of symptoms was August 18, 2024. 10:39 Method Of Arrival: Ambulatory tm6 10:39 Acuity: SATNAM 3 tm6 Triage Assessment: 10:41 General: Appears uncomfortable, Behavior is calm, cooperative. Pain: Complains of pain tm6 in abdomen Pain currently is 8 out of 10 on a pain scale. EENT: No signs and/or symptoms were reported regarding the EENT system. Neuro: Level of Consciousness is awake, alert, obeys commands, Oriented to person, place, time, situation. Cardiovascular: Patient's skin is warm and dry. Respiratory: Airway is patent Respiratory effort is even, unlabored, Respiratory pattern is regular, symmetrical. GI: Abd is soft Abdomen is tender to palpation in abdomen diffusely Reports lower abdominal pain, upper abdominal pain, diarrhea, nausea, vomiting. : No signs and/or symptoms were reported regarding the genitourinary system. Derm: No signs and/or symptoms reported regarding the dermatologic system. Musculoskeletal: Reports body aches, chills. Historical: - Allergies: 10:39 Demerol; tm6 - PMHx: 10:39 Colitis; Malignant uterine mass; tm6 - PSHx: 10:39 Appendectomy; hysterectomy; tm6 - Immunization history:: Flu vaccine is not up to date. - Infectious Disease History:: Denies. CDIFF, e. coli. - Social history:: Smoking status: Reported history of juuling and/or vaping. Patient/guardian denies using alcohol. Screenin:28 [facility] ED Fall Risk Assessment (Adult) History of falling in the last 3 months, db including since admission No falls in past 3 months (0 pts) Confusion or Disorientation No (0 pts) Intoxicated or Sedated No (0 pts) Impaired Gait No (0 pts) Mobility Assist Device Used No (0 pt) Altered Elimination No (0 pt) Score/Fall Risk Level 0 - 2 = Low Risk Oriented to surroundings, Maintained a safe environment. Abuse screen: Denies threats or abuse. Denies injuries from another. Nutritional screening: No deficits noted. Tuberculosis screening: No symptoms or risk factors identified. Assessment: 12:07 Reassessment: PATIENT AMBULATORY TO RESTROOM. db 12:30 GI: Reports nausea, vomiting. db 13:00 Reassessment: Patient appears in no apparent distress at this time. Patient and/or db family updated on plan of care and expected duration. Pain level reassessed. Patient is alert, oriented x 3, equal unlabored respirations, skin warm/dry/pink. ATTEMPTED TO OBTAIN IV ACCESS X 4 TRIES WITH 2 STAFF MEMBERS. UNSUCCESSFUL. NOTIFIED CHARGE NURSE AGUEDA. 14:48 Reassessment: Patient appears in no apparent distress at this time. Patient and/or db family updated on plan of care and expected duration. Pain level reassessed. Patient is alert, oriented x 3, equal unlabored respirations, skin warm/dry/pink. Vital Signs: 10:40 Resp 19; Temp 98.1(TE); Weight 51.71 kg; Height 5 ft. 5 in. ; Pain 7/10; tm6 10:48 BP 164 / 104; Pulse 64; Pulse Ox 97% on R/A; MAP 120 mmHg; tm6 12:45 BP 123 / 77; Pulse 62; Resp 16; Pulse Ox 100% ; db 14:00 BP 123 / 89; Pulse 68; Resp 16; Pulse Ox 100% on R/A; db 10:40 Body Mass Index 18.97 (51.71 kg, 165.1 cm) tm6 10:40 Pain Scale: Adult tm6 ED Course: 10:32 Patient arrived in ED. im 10:32 Radha Parmar FNP-C is [facility]. kb 10:32 Abdiel Armendariz MD is Attending Physician. kb 10:36 Jo-Ann Harvey, RN is Primary Nurse. ko1 10:39 Triage completed. tm6 10:41 Arm band placed on right wrist. tm6 11:43 Elsi Puente, RN is Primary Nurse. db 11:57 Radiology exam delayed due to lab results not completed at this time. (BUN/Creatinine). mw3 12:40 Missed attempt(s): 22 gauge in right wrist. Bleeding controlled, band aid applied, db catheter tip intact. 12:50 Missed attempt(s): 22 gauge in left hand. db 13:28 Patient has correct armband on for positive identification. Bed in low position. Call db light in reach. Side rails up X 1. Pulse ox on. NIBP on. Warm blanket given. Pillow given. 13:28 Accessed peripheral vein via ultrasound, utilizing dynamic ultrasound technique STARTED db BY ANA CRISTINA ROMEO using accessed w/ # 20 Quan needle, ,sterile technique, per hospital protocol. Clean \T\ dry. Dressing intact. Good blood return. Flushes easily. 13:50 CT Abd/Pelvis - IV Contrast Only In Process Unspecified. EDMS 14:50 Provided Education on: DISCHARGE AND FOLLOWUP. db 14:50 No provider procedures requiring assistance completed. IV discontinued, intact, db bleeding controlled, No redness/swelling at site. Administered Medications: 13:30 Drug: Famotidine IVP 20 mg IVP once; dilute with 10 mL 0.9% NaCl; give over 2 minutes db Route: IVP; Site: right antecubital; 14:51 Follow up: Response: No adverse reaction db 13:30 Drug: Ondansetron IVP 4 mg IVP once; over 2 minutes Route: IVP; Site: right antecubital;db 14:51 Follow up: Response: No adverse reaction db 13:30 Drug: NS 0.9% IV 1000 ml IV at 1 bolus Per protocol; to be given as a bolus over 60 db minutes Route: IV; Rate: 1 bolus; Site: right antecubital; 14:51 Follow up: Response: No adverse reaction; IV Status: Completed infusion; IV Intake: db 1000ml Medication: 14:50 VIS not applicable for this client. db Intake: 14:51 IV: 1000ml; Total: 1000ml. db Outcome: 14:24 Discharge ordered by MD. vickers 14:50 Discharged to home ambulatory, with family, kaitlynn 14:50 Condition: stable 14:50 Discharge instructions given to patient, Instructed on discharge instructions, follow up and referral plans. Prescriptions given X 2, 14:52 Patient left the ED. db Signatures: Dispatcher [employer] EDMS Radha Parmar, SVP [employer]-C SVP [employer]-Ckb Kiley Claudio mw3 Jo-Ann Harvey RN RN ko1 Elsi Puente, RN RN Krissy Chadwick Tawney, RN RN tm6 Corrections: (The following items were deleted from the chart) 14:51 12:30 BP 123 / 89; Pulse 68bpm; Resp 16bpm; Pulse Ox 100% RA; db db
[2024-08-22 14:57] VITALS: TEMP 98.1
[2024-08-22 15:00] VITALS: O2SAT 100
[2024-08-22 15:01] VITALS: BP 123/89
== END 2024-08-22 14:52 | disposition home or self-care (01) ==
LOC: ER 10:30
DX: K52.9 Noninfective gastroenteritis and colitis, unspecified (principal)
CPT/HCPCS: 36415; 74177; 80053; 81001; 83690; 85025; 96361; 96374; 96375; 99284; J2405; J7030; Q9967

== ENCOUNTER 2025-01-31 10:05 | Emergency (ER) | payer MEDICARE ==
[2025-01-31] MEDS ORDERED: FAMOTIDINE 20 MG/2 ML VIAL IV ONE (10:35)
[2025-01-31] MEDS ORDERED: KETOROLAC 30 MG/ML INJ ONE (10:35)
[2025-01-31] MEDS ORDERED: ONDANSETRON 4 MG/2 ML VIAL ONE ×2 (10:35→11:08)
[2025-01-31] MEDS ORDERED: NA CHLORIDE 0.9% 1,000 ML ONE (10:36)
[2025-01-31 10:37] LABS: Absolute Eosinophils 0.1 K/uL (0-0.5); Absolute Lymphocytes (CBC) 1.4 K/uL (0.7-4.9); Absolute Monocytes 0.4 K/uL (0.1-1.3); Absolute Neutrophil 4.9 K/uL (1.8-8.0); Basophils % 0.5 % (0-1.3); Hematocrit 39.1 % (36.0-45.0); Hemoglobin 13.4 g/dL (12.0-15.0); Lymphocytes % 20.8 % (15.3-44.8); MCH 32.1 pg (27.0-35.0); MCHC 34.2 g/dL (32.0-36.0); MCV 93.8 fL (80-100); MPV 7.9 fL (7.6-11.3); Monocytes % 6.1 % (3.3-12.3); Neutrophils % 71.6 % (41.7-73.7); Platelets 311 thou/uL (152-406); RBC Red Blood Cell Count 4.17 M/uL (3.86-4.86); Red Cell Distribution Width 12.7 % (12.1-15.2)
[2025-01-31 10:53] LABS: Albumin/Globulin Ratio 1.1 (1.1-1.8); Anion Gap 9.7 mEq/L (5.0-15.0); Bilirubin Total 0.5 mg/dL (0.2-1.0); Globulin 3.8 g/dL (2.3-3.5); Potassium 3.7 mEq/L (3.5-5.1); Protein, Total 7.8 g/dL (6.4-8.2)
[2025-01-31] MEDS ORDERED: MORPHINE 4 MG/ML SYR ONE ×2 (11:08→12:50)
--- NOTE | 2025-01-31 11:36 | RAD REPORT ---
EXAM: Right upper quadrant ultrasound. CLINICAL HISTORY: ABD PAIN COMPARISON: None. FINDINGS: Gallbladder: Mildly contracted without evidence of stone or wall thickening. Bile ducts: No intrahepatic or extrahepatic biliary dilatation. Common bile duct measures 5 mm. Limited imaging of the liver shows no concerning finding. IMPRESSION: Mildly contracted gallbladder, otherwise negative study.
--- NOTE | 2025-01-31 12:19 | RAD REPORT ---
EXAMINATION: CT ABDOMEN AND PELVIS WITH CONTRAST CLINICAL INDICATION: ABD PAIN TECHNIQUE: CT abdomen and pelvis was performed, after the administration of IV contrast, as per [facility] protocol. Axial, sagittal and coronal reconstructions were obtained. One or more of the following dose reduction techniques were used: Automated exposure control, adjustment of the mA and k V according to patient size, and iterative reconstruction. Unless otherwise specified, incidental findings do not require dedicated imaging follow-up. COMPARISON: 08/22/2024 FINDINGS: LOWER CHEST: The visualized lung bases are clear. LIVER: Normal in size and contour. No focal lesion. Grossly unremarkable gallbladder. SPLEEN: Normal size. No focal lesion. PANCREAS: No mass, ductal dilation, or elli-pancreatic fluid. ADRENALS: Normal; no mass. KIDNEYS: Normal size and contour. No hydronephrosis. GASTROINTESTINAL TRACT: No evidence of free air, significant intra-abdominal free fluid, bowel obstru ction or abscess. APPENDIX: Appendix not visualized, but no inflammatory changes in region of appendix. LYMPH NODES: No lymphadenopathy. MUSCULOSKELETAL: No acute or suspicious osseous abnormality. IMPRESSION: No acute abnormalities seen in the abdomen or pelvis.
[2025-01-31] MEDS ORDERED: DICYCLOMINE HCL 20 MG/2 ML AMP IM ONE (12:50)
[2025-01-31] MEDS ORDERED: PROMETHAZINE INJ 25 MG/ML AMP ONE (12:50)
--- NOTE | 2025-01-31 13:02 | EDPHYS ---
Physician Documentation [facility] Name: Kira Last Age: 54 yrs Sex: Female : 1970 Arrival Date: 01/31/2025 Time: 10:05 Bed 17 Private MD: ED Physician Jacek Claros HPI: 01/31 10:54 This 54 yrs old Female presents to ER via Ambulatory with complaints of Abdominal Pain kb - UPPER, Vomiting, Possible Dehydration. 10:54 Pt is a 54 year old female who presents for upper abd pain, nausea and vomiting that kb started 2 months ago. States she has been seen multiple times for this, but nothing is getting better. States she was seen at [facility] last week and was told her CBD was dilated, but that is not new for her so she is supposed to have another test done. States they weren't able to schedule that test yet. Came in today because she "just can't take it anymore." States she hasn't been able to tolerate anything by mouth today. . Historical: - Allergies: 10:11 Demerol; aa5 - PMHx: 10:11 Colitis; Malignant uterine mass; aa5 10:12 CDiff; aa5 - PSHx: 10:11 Appendectomy; hysterectomy; aa5 - Infectious Disease History:: CDIFF, . ROS: 10:53 Constitutional: As per HPI kb Exam: 10:53 Constitutional: This is a well developed, well nourished patient who is awake, alert, kb and in no acute distress. Head/Face: Normocephalic, atraumatic. ENT: Moist Mucous membranes Cardiovascular: Regular rate Respiratory: Respirations even and unlabored. No increased work of breathing. Talking in full sentences Skin: Warm, dry with normal turgor. Normal color. MS/ Extremity: Pulses equal, no cyanosis. Neurovascular intact. Full, normal range of motion. Neuro: Awake and alert, GCS 15, oriented to person, place, time, and situation. 10:53 Abdomen/GI: Inspection: abdomen appears normal, Bowel sounds: normal, Palpation: soft, in all quadrants, moderate abdominal tenderness, in the epigastric area, right upper quadrant and left upper quadrant, Vital Signs: 10:13 BP 134 / 94; Pulse 97; Resp 16 S; Temp 98.1(O); Pulse Ox 99% on R/A; aa5 12:18 BP 127 / 86; Pulse 86; Resp 16; Pulse Ox 99% on R/A; dd2 13:30 BP 125 / 81; Pulse 83; Resp 16; Pulse Ox 98% on R/A; dd2 MDM: 10:10 Medical Screening Exam initiated kb 10:54 Data reviewed: vital signs, nurses notes. kb 13:00 Differential diagnosis: cholecystitis, Cholelithiasis, gastritis, gastroesophageal kb reflux disease, non-specific abd pain, pancreatitis. Counseling: I had a detailed discussion with the patient and/or guardian regarding the historical points, exam findings, and any diagnostic results supporting the discharge/admit diagnosis, lab results, radiology results, the need for outpatient follow up, a color adviser, to return to the emergency department if symptoms worsen or persist or if there are any questions or concerns that arise at home. ED course: Pt will follow up with [facility] for continued workup. Symptoms have been ongoing and Dr Drake has started the workup to find the cause. Pt is scheduled for MRCP next week. . 01/31 10:21 Order name: CBC with Diff; Complete Time: 10:44 kb 01/31 10:21 Order name: CMP; Complete Time: 10:56 kb 01/31 10:21 Order name: Lipase; Complete Time: 10:56 kb 01/31 10:21 Order name: Abdomen Limited US; Complete Time: 11:39 kb 01/31 11:39 Order name: CT Abd/Pelvis - IV Contrast Only; Complete Time: 12:20 kb 01/31 10:21 Order name: IV Saline Lock; Complete Time: 10:43 kb 01/31 10:21 Order name: Labs collected and sent; Complete Time: 10:43 kb Administered Medications: 10:40 Drug: Famotidine IVP 20 mg IVP once; dilute with 10 mL 0.9% NaCl; give over 2 minutes aa5 Route: IVP; Site: right antecubital; 10:49 Follow up: Response: No adverse reaction aa5 10:40 Drug: TORadol - Ketorolac IVP 15 mg IVP once Route: IVP; Site: right antecubital; aa5 10:49 Follow up: Response: No adverse reaction aa5 10:40 Drug: Ondansetron IVP 4 mg IVP once; over 2 minutes Route: IVP; Site: right antecubital;aa5 10:49 Follow up: Response: No adverse reaction aa5 10:40 Drug: NS 0.9% IV 1000 ml IV at 1 bolus Per protocol; to be given as a bolus over 60 aa5 minutes Route: IV; Rate: 1 bolus; Site: right antecubital; 12:10 Follow up: IV Status: Completed infusion dd2 11:11 Drug: Ondansetron IVP 4 mg IVP once; over 2 minutes Route: IVP; Site: right antecubital;aa5 11:19 Follow up: Response: No adverse reaction aa5 11:11 Drug: morphine IVP or IV 4 mg IVP once over 4 mins Route: IVP; Infused Over: 4 mins; aa5 Site: right antecubital; 11:19 Follow up: Response: No adverse reaction aa5 12:59 Drug: morphine IVP or IV 4 mg IVP once over 4 mins Route: IVP; Infused Over: 4 mins; dd2 Site: right antecubital; 13:25 Follow up: Response: No adverse reaction dd2 12:59 Drug: Dicyclomine IM 20 mg IM once Route: IM; Site: right deltoid; dd2 13:24 Follow up: Response: No adverse reaction dd2 12:59 Drug: Promethazine IVP 25 mg IVP once Route: IVP; Site: right antecubital; dd2 13:24 Follow up: Response: No adverse reaction dd2 Disposition: 15:20 Co-signature as Attending Physician, Jacek Claros MD I reviewed the patient's care rn provided by the Advanced Practice Provider and agree with the diagnosis and treatment plan. Disposition Summary: 01/31/25 13:02 Discharge Ordered Notes: Location: Home kb Condition: Stable kb Diagnosis - Upper abdominal pain, unspecified kb - Nausea with vomiting, unspecified kb Followup: kb - With: Emergency Department - When: As needed - Reason: Worsening of condition Followup: kb - With: Private Physician - When: 2 - 3 days - Reason: Recheck today's complaints, Continuance of care, Re-evaluation by your physician Discharge Instructions: - Discharge Summary Sheet kb - Nausea and Vomiting, Adult, [id number] kb - Abdominal Pain, Adult, [id number] kb Forms: - Medication Reconciliation Form kb - Antibiotic Education kb - Prescription Opioid Use kb - Patient Portal Instructions kb - Leadership Thank You Letter kb Prescriptions: - promethazine 25 mg Oral Tablet - take 1 tablet ORAL route every 6 hours As needed; 20 tablet; Refills: 0, kb Product Selection Permitted - dicyclomine 20 mg Oral tablet - take 1 tablet ORAL route 4 times per day As needed; 20 tablet; Refills: 0, kb Product Selection Permitted Signatures: Dispatcher [employer] EDMS Radha Parmar, LINOLEUM MECHANIC-C LINOLEUM MECHANIC-CkJacek Paul MD MD rn Calderon, Audri RN RN aa5 TRINIDAD GONZALEZ RN RN dd2 Corrections: (The following items were deleted from the chart) 10:22 10:22 CBC+H.LAB.BRZ ordered. EDMS EDMS 10:22 10:22 COMPREHENSIVE METABOLIC PANEL+C.LAB.BRZ ordered. EDMS EDMS 10:22 10:22 LIPASE+C.LAB.BRZ ordered. EDMS EDMS 10:22 10:22 Abdomen Limited+US.RAD.BRZ ordered. EDMS EDMS
--- NOTE | 2025-01-31 13:02 | ER ---
Nurse's Notes [facility] Name: Kira Last Age: 54 yrs Sex: Female : 1970 Arrival Date: 01/31/2025 Time: 10:05 Bed 17 Private MD: Diagnosis: Upper abdominal pain, unspecified;Nausea with vomiting, unspecified Presentation: 01/31 10:13 Chief complaint: Patient states: abd pain and nausea/vomiting x 2months ago. aa5 Coronavirus screen: nausea, vomiting. Ebola Screen: Patient denies travel to an Ebola-affected area in the 21 days before illness onset. Onset of symptoms was 2024. 10:13 Method Of Arrival: Ambulatory aa5 10:13 Acuity: SATNAM 3 aa5 10:13 Risk Assessment: Do you want to hurt yourself or someone else? Patient reports no aa5 desire to harm self or others. 10:13 Initial Sepsis Screen: Does the patient meet any 2 criteria? HR > 90 bpm. Does the aa5 patient have a suspected source of infection? No. Patient's initial sepsis screen is negative. Historical: - Allergies: 10:11 Demerol; aa5 - PMHx: 10:11 Colitis; Malignant uterine mass; aa5 10:12 CDiff; aa5 - PSHx: 10:11 Appendectomy; hysterectomy; aa5 - Infectious Disease History:: CDIFF, . Screenin:30 [facility] ED Fall Risk Assessment (Adult) History of falling in the last 3 months, aa5 including since admission No falls in past 3 months (0 pts) Confusion or Disorientation No (0 pts) Intoxicated or Sedated No (0 pts) Impaired Gait No (0 pts) Mobility Assist Device Used No (0 pt) Altered Elimination No (0 pt) Score/Fall Risk Level 0 - 2 = Low Risk Oriented to surroundings, Maintained a safe environment, Educated pt \T\ family on fall prevention, incl call for assistance when getting out of bed, Assessed \T\ reinforced patient's understanding of fall precautions. Abuse screen: Denies threats or abuse. Nutritional screening: No deficits noted. Tuberculosis screening: No symptoms or risk factors identified. Assessment: 10:15 General: Appears uncomfortable, Behavior is calm, cooperative. Pain: Complains of pain aa5 in right upper quadrant and left upper quadrant Pain does not radiate. Pain currently is 8 out of 10 on a pain scale. Quality of pain is described as tender, Pain began 2 months ago Is intermittent. Neuro: Level of Consciousness is awake, alert, obeys commands, Oriented to person, place, time, situation. Cardiovascular: Patient's skin is warm and dry. Respiratory: Airway is patent Respiratory effort is even, unlabored, Respiratory pattern is regular, symmetrical. GI: Abdomen is non-distended, Bowel sounds present X 4 quads. Abd is soft X 4 quads Abdomen is tender to palpation in right upper quadrant and left upper quadrant Reports intermittent nausea and vomiting x 2 months ago. : No signs and/or symptoms were reported regarding the genitourinary system. EENT: No signs and/or symptoms were reported regarding the EENT system. Derm: Skin is pink, warm \T\ dry. Musculoskeletal: Range of motion: intact in all extremities. 11:04 Reassessment: Patient is alert, oriented x 3, equal unlabored respirations, skin aa5 warm/dry/pink. Pt dry heaving and c/o increased pain, provider was notified. . 11:06 GI: Pt is actively vomiting clear fluid. kc6 11:19 Reassessment: Patient is alert, oriented x 3, equal unlabored respirations, skin aa5 warm/dry/pink. Patient states feeling better. 11:20 Reassessment: US at bedside . aa5 Vital Signs: 10:13 BP 134 / 94; Pulse 97; Resp 16 S; Temp 98.1(O); Pulse Ox 99% on R/A; aa5 12:18 BP 127 / 86; Pulse 86; Resp 16; Pulse Ox 99% on R/A; dd2 13:30 BP 125 / 81; Pulse 83; Resp 16; Pulse Ox 98% on R/A; dd2 ED Course: 10:09 Patient arrived in ED. cj3 10:09 Radha Parm[facility]-C [facility]. kb 10:09 Jacek Claros MD is Attending Physician. kb 10:11 Dimple Marcelino, ANA CRISTINA is Primary Nurse. aa5 10:11 Arm band placed on Patient placed in an exam room, on a stretcher. aa5 10:11 Patient has correct armband on for positive identification. Bed in low position. Call aa5 light in reach. Side rails up X 1. Adult w/ patient. Pulse ox on. NIBP on. 10:13 Triage completed. aa5 10:29 Initial lab(s) drawn, by me, sent to lab. Inserted saline lock: 20 gauge in right aa5 antecubital area, using aseptic technique. Blood collected. Flushed with 10 mL NS. 10:46 No provider procedures requiring assistance completed. aa5 11:06 Patient requests pain medication. kc6 11:31 Abdomen Limited US In Process Unspecified. EDMS 12:05 Report given to ANA CRISTINA Coburn. aa5 12:11 CT Abd/Pelvis - IV Contrast Only In Process Unspecified. EDMS 13:30 Provided Education on: D/C INSTRUCTIONS, MEDICATIONS. dd2 13:30 IV discontinued, intact, bleeding controlled, No redness/swelling at site. Pressure dd2 dressing applied. Administered Medications: 10:40 Drug: Famotidine IVP 20 mg IVP once; dilute with 10 mL 0.9% NaCl; give over 2 minutes aa5 Route: IVP; Site: right antecubital; 10:49 Follow up: Response: No adverse reaction aa5 10:40 Drug: TORadol - Ketorolac IVP 15 mg IVP once Route: IVP; Site: right antecubital; aa5 10:49 Follow up: Response: No adverse reaction aa5 10:40 Drug: Ondansetron IVP 4 mg IVP once; over 2 minutes Route: IVP; Site: right antecubital;aa5 10:49 Follow up: Response: No adverse reaction aa5 10:40 Drug: NS 0.9% IV 1000 ml IV at 1 bolus Per protocol; to be given as a bolus over 60 aa5 minutes Route: IV; Rate: 1 bolus; Site: right antecubital; 12:10 Follow up: IV Status: Completed infusion dd2 11:11 Drug: Ondansetron IVP 4 mg IVP once; over 2 minutes Route: IVP; Site: right antecubital;aa5 11:19 Follow up: Response: No adverse reaction aa5 11:11 Drug: morphine IVP or IV 4 mg IVP once over 4 mins Route: IVP; Infused Over: 4 mins; aa5 Site: right antecubital; 11:19 Follow up: Response: No adverse reaction aa5 12:59 Drug: morphine IVP or IV 4 mg IVP once over 4 mins Route: IVP; Infused Over: 4 mins; dd2 Site: right antecubital; 13:25 Follow up: Response: No adverse reaction dd2 12:59 Drug: Dicyclomine IM 20 mg IM once Route: IM; Site: right deltoid; dd2 13:24 Follow up: Response: No adverse reaction dd2 12:59 Drug: Promethazine IVP 25 mg IVP once Route: IVP; Site: right antecubital; dd2 13:24 Follow up: Response: No adverse reaction dd2 Medication: 10:44 VIS not applicable for this client. aa5 Outcome: 13:02 Discharge ordered by MD. vickers 13:30 Discharged to home ambulatory, dd2 13:30 Condition: stable 13:30 Discharge instructions given to patient, Instructed on discharge instructions, follow up and referral plans. medication usage, Demonstrated understanding of instructions, follow-up care, medications, Prescriptions given X 2, 13:31 Patient left the ED. dd2 Signatures: Dispatcher [employer] EDMS Radha Parmar, SABRINA-C FISHING INSTRUCTOR-Dimple Torres RN RN aa5 Mady Griffith RN RN [id number] TRINIDAD GONZALEZ RN RN dd2 Anabelle Brownlee cj3 Corrections: (The following items were deleted from the chart) 10:23 10:10 BP 134 / 94; Pulse 97bpm; Resp 16bpm; Spontaneous; Pulse Ox 99% RA; Temp 98.1F aa5 Oral; aa5
[2025-01-31 13:55] VITALS: TEMP 98.4
[2025-01-31 13:57] VITALS: O2SAT 95
[2025-01-31 13:59] VITALS: BP 103/55
== END 2025-01-31 13:31 | disposition home or self-care (01) ==
LOC: ER 10:05
DX: R10.11 Right upper quadrant pain (principal); R11.2 Nausea with vomiting, unspecified; Z85.42 Personal history of malignant neoplasm of other parts of uterus
CPT/HCPCS: 36415; 74177; 76705; 80053; 83690; 85025; 96361; 96372; 96374; 96375; 99284; J0500; J2405; J2550; J7030; Q9967

== ENCOUNTER 2025-04-28 21:17 | Inpatient (IN) | payer BC ==
[2025-04-28] MEDS ORDERED: MORPHINE 4 MG/ML SYR ONE ×2 (21:38→22:36)
[2025-04-28] MEDS ORDERED: NA CHLORIDE 0.9% 1,000 ML ONE (21:38)
[2025-04-28] MEDS ORDERED: ONDANSETRON 4 MG/2 ML VIAL ONE (21:38)
[2025-04-28 22:03] LABS: Absolute Lymphocytes (CBC) 0.5 K/uL (0.7-4.9); Hematocrit 36.6 % (36.0-45.0); Hemoglobin 12.4 g/dL (12.0-15.0); MCH 31.9 pg (27.0-35.0); MCHC 34.0 g/dL (32.0-36.0); MCV 93.8 fL (80-100); MPV 7.9 fL (7.6-11.3); Nucleated RBC Absolute Count 0.0 (0-0); Nucleated Red Blood Cells % 0.0 % (0-0); RBC Red Blood Cell Count 3.90 M/uL (3.86-4.86); White Blood Count 21.20 thou/uL (4.3-10.9)
[2025-04-28 22:27] LABS: ALT/SGPT 21 U/L (13-56); AST/SGOT 20 U/L (15-37); Albumin 4.0 g/dL (3.4-5.0); Albumin/Globulin Ratio 1.1 (1.1-1.8); Alkaline Phosphatase 42 U/L (45-117); Anion Gap 12.3 mEq/L (5.0-15.0); BUN Blood Urea Nitrogen 14 mg/dL (7-18); Globulin 3.6 g/dL (2.3-3.5); Glucose Level 163 mg/dL (74-106); Potassium 3.3 mEq/L (3.5-5.1)
[2025-04-28 22:29] LABS: Lipase > 5000 U/L (13-75)
[2025-04-28] MEDS ORDERED: CEFTRIAXONE 1000 MG/VIAL ONE (22:36)
[2025-04-28] MEDS ORDERED: HYDROMORPHONE HCL 0.5 MG/0.5 ML INJ ONE (22:59)
[2025-04-28 23:16] LABS: Blood Morphology Comment NOT SEEN (NOT SEEN); Differential Total Cells Count 100; Segmented Neutrophils 81 % (40-80)
--- NOTE | 2025-04-29 00:28 | ER ---
Nurse's Notes [facility] Name: Kira Last Age: 55 yrs Sex: Female : 1970 Arrival Date: 04/28/2025 Time: 21:17 Bed 13 Private MD: Diagnosis: Abdominal pain, unspecified;Acute pancreatitis without necrosis or infection, [id number];Intractable pain Presentation: 04/28 21:27 Chief complaint: Patient states: abdominal pain, nausea, and vomiting. States she had a cp4 bile duct stent placed today in Dr. Drake's office. Coronavirus screen: Client denies travel out of the [place] in the last 14 days. At this time, the client does not indicate any symptoms associated with coronavirus-19. Ebola Screen: Patient negative for fever greater than or equal to 101.5 degrees Fahrenheit, and additional compatible Ebola Virus Disease symptoms Patient denies exposure to infectious person. Patient denies travel to an Ebola-affected area in the 21 days before illness onset. No symptoms or risks identified at this time. Initial Sepsis Screen: Does the patient meet any 2 criteria? No. Patient's initial sepsis screen is negative. Does the patient have a suspected source of infection? No. Patient's initial sepsis screen is negative. Risk Assessment: Do you want to hurt yourself or someone else? Patient reports no desire to harm self or others. Onset of symptoms was April 28, 2025. 21:27 Method Of Arrival: Ambulatory cp4 21:27 Acuity: SATNAM 3 cp4 Triage Assessment: 21:29 General: Appears in no apparent distress. uncomfortable, Behavior is calm, cooperative, cp4 appropriate for age. Pain: Complains of pain in abdomen. GI: Reports upper abdominal pain, nausea, vomiting. Historical: - Allergies: 21:29 Demerol; cp4 21:29 Phenergan; cp4 - PMHx: 21:29 Cdiff; Colitis; Malignant uterine mass; cp4 - PSHx: 21:29 Appendectomy; hysterectomy; cp4 - Immunization history:: Adult Immunizations up to date. - Infectious Disease History:: Denies. - Social history:: Smoking status: Reported history of juuling and/or vaping. - Family history:: not pertinent. - Hospitalizations: : No recent hospitalization is reported. Screenin:[address] [facility] ED Fall Risk Assessment (Adult) History of falling in the last 3 months, lg3 including since admission No falls in past 3 months (0 pts) Confusion or Disorientation No (0 pts) Intoxicated or Sedated No (0 pts) Impaired Gait No (0 pts) Mobility Assist Device Used No (0 pt) Altered Elimination No (0 pt) Score/Fall Risk Level 0 - 2 = Low Risk Oriented to surroundings, Maintained a safe environment, Educated pt \T\ family on fall prevention, incl call for assistance when getting out of bed, Assessed \T\ reinforced patient's understanding of fall precautions. Abuse screen: Denies threats or abuse. Denies injuries from another. Nutritional screening: No deficits noted. Tuberculosis screening: No symptoms or risk factors identified. Assessment: 21:34 General: Appears in no apparent distress. uncomfortable, Behavior is calm, cooperative. lg3 Pain: Complains of pain in abdomen Pain does not radiate. Pain currently is 9 out of 10 on a pain scale. Neuro: No deficits noted. Pacheco Agitation-Sedation Scale (RASS): 0 - Alert and Calm Level of Consciousness is awake, alert, obeys commands, Oriented to person, place, time, situation. Cardiovascular: No deficits noted. Denies chest pain, shortness of breath, Capillary refill < 3 seconds Clubbing of nail beds is absent JVD is absent Patient's skin is warm and dry. Respiratory: No deficits noted. Airway is patent Respiratory effort is even, unlabored, Respiratory pattern is regular, symmetrical. GI: Abdomen is flat, non-distended, Bowel sounds present X 4 quads. Reports lower abdominal pain, cramping, nausea, vomiting. : No signs and/or symptoms were reported regarding the genitourinary system. EENT: No deficits noted. No signs and/or symptoms were reported regarding the EENT system. Derm: Skin is intact, is healthy with good turgor, Skin is dry, Skin is pale, Skin temperature is warm. Musculoskeletal: No deficits noted. No signs and/or symptoms reported regarding the musculoskeletal system. Circulation, motion, and sensation intact. Range of motion: intact in all extremities. 22:13 Reassessment: Patient appears in no apparent distress at this time. No changes from lg3 previously documented assessment. Patient and/or family updated on plan of care and expected duration. Pain level reassessed. Patient is alert, oriented x 3, equal unlabored respirations, skin warm/dry/pink. 22:48 Reassessment: No changes from previously documented assessment. Patient and/or family bm8 updated on plan of care and expected duration. Pain level reassessed. Patient is alert, oriented x 3, equal unlabored respirations, skin warm/dry/pink. Pain: Pain currently is 9 out of 10 on a pain scale. 04/29 00:27 Reassessment: Patient appears in no apparent distress at this time. Patient and/or bm8 family updated on plan of care and expected duration. Pain level reassessed. Patient is alert, oriented x 3, equal unlabored respirations, skin warm/dry/pink. pt is resting with eyes closed breathing is even unlabored with symmetrical rise and fall of chest, NAD at this time Patient states feeling better. Patient states symptoms have improved. 02:27 Reassessment: Patient appears in no apparent distress at this time. No changes from lg3 previously documented assessment. Patient and/or family updated on plan of care and expected duration. Pain level reassessed. Patient is alert, oriented x 3, equal unlabored respirations, skin warm/dry/pink. 03:55 Reassessment: Patient appears in no apparent distress at this time. Patient and/or bm8 family updated on plan of care and expected duration. Pain level reassessed. Patient is alert, oriented x 3, equal unlabored respirations, skin warm/dry/pink. pt is resting with eyes closed breathing is even unlabored with symmetrical rise and fall of chest, NAD at this time Patient denies pain at this time. Patient states feeling better. Patient states symptoms have improved. 05:16 Reassessment: Patient appears in no apparent distress at this time. Patient and/or bm8 family updated on plan of care and expected duration. Pain level reassessed. Patient is alert, oriented x 3, equal unlabored respirations, skin warm/dry/pink. pt is resting with eyes closed breathing is even unlabored with symmetrical rise and fall of chest, NAD at this time. Elimination needs being met. Vital Signs: 04/28 21:27 BP 162 / 90; Pulse 72; Resp 18; Temp 98.5; Pulse Ox 100% ; Weight 49.9 kg; Height 5 ft. cp4 4 in. ; Pain 9/10; 22:13 BP 152 / 85; Pulse 72; Resp 16 S; Pulse Ox 99% on R/A; lg3 22:48 BP 165 / 94; Pulse 72; Resp 18; Temp 98.5; Pulse Ox 100% ; Pain 9/10; bm8 04/29 00:27 BP 150 / 91; Pulse 73; Resp 17; Temp 98.5; Pulse Ox 100% ; Pain 4/10; bm8 02:26 BP 137 / 81; Pulse 71; Resp 17 S; Pulse Ox 98% on R/A; lg3 03:55 BP 145 / 67; Pulse 71; Resp 18; Temp 98.5; Pulse Ox 97% ; Pain 0/10; bm8 05:16 BP 141 / 64; Pulse 70; Resp 17; Temp 98.5; Pulse Ox 97% ; Pain 0/10; bm8 04/28 21:27 Body Mass Index 18.88 (49.90 kg, 162.56 cm) cp4 04/28 21:27 Pain Scale: Adult cp4 22:48 Pain Scale: Adult bm8 04/29 00:27 Pain Scale: Adult bm8 03:55 Pain Scale: Adult bm8 05:16 Pain Scale: Adult bm8 Ulisses Coma Score: 04/28 22:48 Eye Response: spontaneous(4). Motor Response: obeys commands(6). Verbal Response: bm8 oriented(5). Total: 15. 04/29 03:55 Eye Response: spontaneous(4). Motor Response: obeys commands(6). Verbal Response: bm8 oriented(5). Total: 15. 05:16 Eye Response: spontaneous(4). Motor Response: obeys commands(6). Verbal Response: bm8 oriented(5). Total: 15. ED Course: 04/28 21:19 Patient arrived in ED. jj6 21:22 Jacek Claros MD is Attending Physician. rn 21:23 Connie Diaz RN is Primary Nurse. lg3 21:29 Triage completed. cp4 21:29 Arm band placed on right wrist. Patient placed in waiting room. cp4 21:34 Patient has correct armband on for positive identification. Placed in gown. Bed in low lg3 position. Call light in reach. Side rails up X 1. Client placed on continuous cardiac and pulse oximetry monitoring. NIBP monitoring applied. Door closed. Noise minimized. Warm blanket given. Pillow given. Family accompanied patient. 21:34 Missed attempt(s): 20 gauge in right antecubital area. Bleeding controlled, band aid lg3 applied, catheter tip intact. 21:36 Missed attempt(s): 22 gauge in left forearm. Bleeding controlled, band aid applied, lg3 catheter tip intact. 21:59 No provider procedures requiring assistance completed. Initial lab(s) drawn, by id, 8 sent to lab. Inserted saline lock: 20 gauge in right upper arm, using aseptic technique. Blood collected. Flushed with 10 mL NS. Patient maintains SpO2 saturation greater than 95% on room air. 23:42 CT Abd/Pelvis - IV Contrast Only In Process Unspecified. EDMS 04/29 00:27 Anival Zepeda, RN is Hospitalizing Provider. rn 05:16 Provided Education on: need for admission. [facility] 05:16 Patient admitted, IV remains in place. 8 Administered Medications: 04/28 22:01 Drug: Ondansetron IVP 4 mg IVP once; over 2 minutes Route: IVP; Site: right upper arm; [facility] 22:14 Follow up: Response: No adverse reaction lg3 22:01 Drug: morphine IVP or IV 4 mg IVP once over 4 mins Route: IVP; Infused Over: 4 mins; 8 Site: right upper arm; 22:14 Follow up: Response: No adverse reaction; Marked relief of symptoms lg3 22:01 Drug: NS 0.9% IV 1000 ml IV at 1 bolus Per protocol; to be given as a bolus over 60 bm8 minutes Route: IV; Rate: 1 bolus; Site: right upper arm; 04/29 00:29 Follow up: Response: No adverse reaction; IV Status: Completed infusion 8 04/28 22:48 Drug: Rocephin IV 1 grams IV at calculated rate once; Given slow IV push per pharmacy 8 instructions Route: IV; Rate: calculated rate; Site: right upper arm; 04/29 00:28 Follow up: Response: No adverse reaction; IV Status: Completed infusion 8 04/28 22:48 Drug: morphine IVP or IV 4 mg IVP once over 4 mins Route: IVP; Infused Over: 4 mins; 8 Site: right upper arm; 04/29 00:28 Follow up: Response: No adverse reaction 8 04/28 23:03 Drug: HYDROmorphone IVP 0.5 mg IVP once Route: IVP; Site: right upper arm; bm8 04/29 00:28 Follow up: Response: No adverse reaction bm8 02:13 Drug: Meropenem IV 1 grams IV at calculated rate once; (mix in NS 100 mL) Route: IV; bm8 Rate: calculated rate; Site: right upper arm; 03:56 Follow up: Response: No adverse reaction; IV Status: Completed infusion bm8 02:13 Drug: NS 0.9% IV 1000 ml IV at 1000 ml once; to be given as a bolus over 60 minutes bm8 Route: IV; Rate: 1000 ml; Site: right upper arm; 03:56 Follow up: Response: No adverse reaction; IV Status: Completed infusion bm8 Medication: 04/28 21:34 VIS not applicable for this client. lg3 Outcome: 04/29 00:28 Decision to Hospitalize by Provider. rn 07:15 Admitted to ER Hold. Please see [facility] for further documentation. kc6 07:15 Condition: good 07:15 Instructed on the need for admit, 13:54 Patient left the ED. kc6 Signatures: Dispatcher [employer] EDJacek Nagel MD MD rn Able, Lacie, RN RN lg3 Minnie Hinson Kaitlyn RN RN kc6 Patti Clarke Brad RN RN bm8
--- NOTE | 2025-04-29 00:28 | EDPHYS ---
Physician Documentation [facility] Name: Kira Last Age: 55 yrs Sex: Female : 1970 Arrival Date: 04/28/2025 Time: 21:17 Bed 13 Private MD: ED Physician Jacek Claros HPI: 04/28 21:49 This 55 yrs old Female presents to ER via Ambulatory with complaints of Post heater furnace Pain, Nausea/Vomiting, Abdominal Pain. 21:49 Patient had MRCP with stent placed by Dr. Drake earlier today. States woke up rn uncomfortable and nauseous, went home and had increasing abdominal pain with vomiting several times. Patient reports upper abdominal pain. States this pain is worse than she was having prior to the procedure.. Historical: - Allergies: 21:29 Demerol; cp4 21:29 Phenergan; cp4 - PMHx: 21:29 Cdiff; Colitis; Malignant uterine mass; cp4 - PSHx: 21:29 Appendectomy; hysterectomy; cp4 - Immunization history:: Adult Immunizations up to date. - Infectious Disease History:: Denies. - Social history:: Smoking status: Reported history of juuling and/or vaping. - Family history:: not pertinent. - Hospitalizations: : No recent hospitalization is reported. ROS: 21:49 Constitutional: Negative for fever, chills, and weight loss, Cardiovascular: Negative rn for chest pain, palpitations, and edema, Respiratory: Negative for shortness of breath, cough, wheezing, and pleuritic chest pain, Abdomen/GI: Positive for abdominal pain with vomiting Back: Negative for injury and pain, Exam: 21:49 Constitutional: This is a well developed, well nourished patient who is awake, alert, rn appears uncomfortable ENT: Dry mucous membranes Cardiovascular: Regular rate and rhythm. No pulse deficits. Respiratory: No increased work of breathing, no retractions or nasal flaring. Abdomen/GI: Soft, mild epigastric tenderness. No distention or rebound Vital Signs: 21:27 BP 162 / 90; Pulse 72; Resp 18; Temp 98.5; Pulse Ox 100% ; Weight 49.9 kg; Height 5 ft. cp4 4 in. ; Pain 9/10; 22:13 BP 152 / 85; Pulse 72; Resp 16 S; Pulse Ox 99% on R/A; lg3 22:48 BP 165 / 94; Pulse 72; Resp 18; Temp 98.5; Pulse Ox 100% ; Pain 9/10; bm8 04/29 00:27 BP 150 / 91; Pulse 73; Resp 17; Temp 98.5; Pulse Ox 100% ; Pain 4/10; bm8 02:26 BP 137 / 81; Pulse 71; Resp 17 S; Pulse Ox 98% on R/A; lg3 03:55 BP 145 / 67; Pulse 71; Resp 18; Temp 98.5; Pulse Ox 97% ; Pain 0/10; bm8 05:16 BP 141 / 64; Pulse 70; Resp 17; Temp 98.5; Pulse Ox 97% ; Pain 0/10; bm8 04/28 21:27 Body Mass Index 18.88 (49.90 kg, 162.56 cm) cp4 04/28 21:27 Pain Scale: Adult cp4 22:48 Pain Scale: Adult bm8 04/29 00:27 Pain Scale: Adult bm8 03:55 Pain Scale: Adult bm8 05:16 Pain Scale: Adult bm8 Ulisses Coma Score: 04/28 22:48 Eye Response: spontaneous(4). Motor Response: obeys commands(6). Verbal Response: bm8 oriented(5). Total: 15. 04/29 03:55 Eye Response: spontaneous(4). Motor Response: obeys commands(6). Verbal Response: bm8 oriented(5). Total: 15. 05:16 Eye Response: spontaneous(4). Motor Response: obeys commands(6). Verbal Response: bm8 oriented(5). Total: 15. MDM: 04/28 21:22 Medical Screening Exam initiated rn 22:40 ED course: Attempted to call Dr. Drake twice, no answer. rn 23:20 ED course: Patient states Dr. Drake told her to go to [facility] if any complications rn after procedure. She chose to come here instead. Attempted to transfer to [facility] as those were patient's instructions and unable to get a hold of Dr. Demarco here to see if he could consult, [facility] declines states they do not have GI coverage and cannot accept the patient. Attempted to contact Dr. Drake again and no answer for the third time.. 04/29 00:26 Differential diagnosis: Nonspecific abd pain, gastritis, pancreatitis, viral rn gastroenteritis, gastroenteritis. Data reviewed: vital signs, nurses notes, lab test result(s), radiologic studies, CT scan, and as a result, I will admit patient. Consideration of Admission/Observation Patient was admitted/placed on observation. Escalation of care including admission/observation considered. Management of patient was discussed with the following: Lehr Tender: Consulted and discussed case with Dr. Arango, states will be available to consult on case if they are unable to get a hold of Dr. Drake, requests meropenem and admission to hospitalist. Independent interpretation of the following test(s) in the Emergency Department CT Scan: My interpretation is CT scan of abdomen images negative for free air or perforation per my interpretation. Counseling: I had a detailed discussion with the patient and/or guardian regarding the historical points, exam findings, and any diagnostic results supporting the discharge/admit diagnosis, lab results, radiology results, the need for further work-up and treatment in the hospital. Response to treatment: the patient's symptoms have mildly improved after treatment, and as a result, I will admit patient. 04/28 21:24 Order name: CBC with Diff; Complete Time: 23:19 rn 04/28 21:24 Order name: CMP; Complete Time: 22:31 rn 04/28 21:24 Order name: Lipase; Complete Time: 22:31 rn 04/28 22:07 Order name: Manual Differential; Complete Time: 23:19 EDMS 04/29 04:48 Order name: CBC with Automated Diff EDMS 04/29 04:48 Order name: CBC with Automated Diff EDMS 04/29 04:48 Order name: CBC with Automated Diff EDMS 04/29 04:48 Order name: Comprehensive Metabolic Panel EDMS 04/29 04:48 Order name: Comprehensive Metabolic Panel EDMS 04/29 04:48 Order name: Comprehensive Metabolic Panel EDMS 04/29 04:48 Order name: Magnesium EDMS 04/29 04:48 Order name: Magnesium EDMS 04/29 08:31 Order name: Phosphorus kc6 04/29 08:31 Order name: Magnesium kc6 04/29 09:40 Order name: Basic Metabolic Panel EDMS 04/29 09:40 Order name: Phosphorus EDMS 04/29 09:40 Order name: Magnesium EDMS 04/28 21:24 Order name: CT Abd/Pelvis - IV Contrast Only rn 04/29 04:45 Order name: Dr Mahad Arango [facility] 04/28 21:24 Order name: IV Saline Lock; Complete Time: 22:00 rn 04/28 21:24 Order name: Labs collected and sent; Complete Time: 22:00 rn Administered Medications: 04/28 22:01 Drug: Ondansetron IVP 4 mg IVP once; over 2 minutes Route: IVP; Site: right upper arm; bm8 22:14 Follow up: Response: No adverse reaction lg3 22:01 Drug: morphine IVP or IV 4 mg IVP once over 4 mins Route: IVP; Infused Over: 4 mins; bm8 Site: right upper arm; 22:14 Follow up: Response: No adverse reaction; Marked relief of symptoms lg3 22:01 Drug: NS 0.9% IV 1000 ml IV at 1 bolus Per protocol; to be given as a bolus over 60 bm8 minutes Route: IV; Rate: 1 bolus; Site: right upper arm; 04/29 00:29 Follow up: Response: No adverse reaction; IV Status: Completed infusion 8 04/28 22:48 Drug: Rocephin IV 1 grams IV at calculated rate once; Given slow IV push per pharmacy bm8 instructions Route: IV; Rate: calculated rate; Site: right upper arm; 04/29 00:28 Follow up: Response: No adverse reaction; IV Status: Completed infusion bm8 04/28 22:48 Drug: morphine IVP or IV 4 mg IVP once over 4 mins Route: IVP; Infused Over: 4 mins; bm8 Site: right upper arm; 04/29 00:28 Follow up: Response: No adverse reaction bm8 04/28 23:03 Drug: HYDROmorphone IVP 0.5 mg IVP once Route: IVP; Site: right upper arm; bm8 04/29 00:28 Follow up: Response: No adverse reaction bm8 02:13 Drug: Meropenem IV 1 grams IV at calculated rate once; (mix in NS 100 mL) Route: IV; bm8 Rate: calculated rate; Site: right upper arm; 03:56 Follow up: Response: No adverse reaction; IV Status: Completed infusion 8 02:13 Drug: NS 0.9% IV 1000 ml IV at 1000 ml once; to be given as a bolus over 60 minutes bm8 Route: IV; Rate: 1000 ml; Site: right upper arm; 03:56 Follow up: Response: No adverse reaction; IV Status: Completed infusion bm8 Disposition Summary: 04/29/25 00:28 Hospitalization Ordered Notes: Hospitalization Status: Inpatient Admission rn Provider: Anival Zepeda rn Condition: Stable rn Problem: new rn Symptoms: have improved rn Bed/Room Type: Standard rn Location: Telemetry/MedSurg (Inpatient)(04/29/25 12:52) [facility] Room Assignment: [facility]04/29/25 12:52) [facility] Diagnosis - Abdominal pain, unspecified rn - Acute pancreatitis without necrosis or infection, unspecified - Post-procedural rn - Intractable pain rn Forms: - Medication Reconciliation Form rn - SBAR form rn - Leadership Thank You Letter rn Signatures: Dispatcher [employer] EDJacek Nagel MD MD rn Bradberry, Kelly RN RN kb3 Leyla Dash 6 Patti Clarke cp4 Seb Calderon RN RN bm8 Connie Diaz RN lg3 Corrections: (The following items were deleted from the chart) 08:06 00:28 Telemetry/MedSurg (Inpatient) rn kb3 08:06 00:28 rn kb3 12:52 08:06 [facility] ER HOLD kb3 bc6 12:52 08:06 ERHOLD- kb3 bc6
--- NOTE | 2025-04-29 00:55 | RAD REPORT ---
Clinical Indication: IV ONLY Bed Name: 6. Abdominal pain Comparison: January 31, 2025. TECHNIQUE: Helical imaging was performed from diaphragm through the pelvis after IV contrast administ ration with multiplanar reformations obtained. Coronal and sagittal reformats were performed and provided as separate series. IV CONTRAST: IV contrast dose was not provided GI CONTRAST: GI contrast was not administered CT Radiation Dose: DLP = 460.3 mGy-cm All CT scans at this location are performed using dose optimization techniques as appropriate to perf orm the study. Radiation dose reduction technique was utilized including one or more of the following: Automated exp osure control, adjustment of the mA and/or kV according to patient size and use of iterative reconstruction technique. FINDINGS: LOWER CHEST: The visualized lung bases are clear. LIVER: Pneumobilia is noted. The liver is otherwise unremarkable. GALLBLADDER: Gas densities are noted within the fundus of the gallbladder. The gallbladder is otherwi se unremarkable. INTRAHEPATIC BILE DUCT AND EXTRAHEPATIC BILE DUCT: An internal common bile duct stent is noted. PANCREAS: Unremarkable. SPLEEN: 2 small splenic cysts are noted. ADRENALS: Unremarkable. KIDNEYS AND URETERS: There is no left hydronephrosis. No left perinephric fat stranding is noted. The re are approximately 7 left renal calyceal stones. These measure 2-5 mm in diameter. There is mild right pelviectasis. 2 mm stone is noted in the right upper pole on image 27 of series 2 01. No stones are noted within the right ureter. Crowding of structures slightly limits pelvic evaluation of the ureter. STOMACH: Evaluation of the stomach and bowel is limited due to lack of oral contrast. No gross abno rmalities of the stomach are noted. BOWEL: The small bowel loops in the abdomen and pelvis appear unremarkable. The colonic loops in the abdomen and pelvis appear unremarkable. Slight thickening of the rectal wall is noted. No surrounding fat stranding is noted. Correlation for proctitis may be helpful. APPENDIX: Not well seen on the exam. PERITONEUM AND RETROPERITONEUM: No ascites or free air. No loculated fluid collection is noted. The re is no aortic aneurysm or dissection. PELVIS: The patient is status post hysterectomy. BLADDER: The urinary bladder is mildly distended. No calcified stones are noted in the urinary bladde r. LYMPH NODES: Unremarkable. OSSEOUS STRUCTURES: No acute abnormality seen. SOFT TISSUES: Unremarkable. IMPRESSION: 1. Interval placement of an internal biliary stent with pneumobilia and gas densities noted in the ga llbladder lumen. No inflammatory changes are noted. 2. Nonobstructing bilateral renal calyceal stones. 3. Thickening of the rectal wall without surrounding inflammatory changes. Correlation for proctitis may be helpful. Electronically signed by: Richy Chatman MD 04/29/2025 12:19 AM CDT RP Due to temporary technical issues with the PACS/ColorChip reporting system, reports are being mari d by the in-house radiologist without review as a courtesy to ensure prompt reporting the interpreting radiologist is fully responsible for the content of the report. Transcribed Date/Time: 04/29/2025 12:54 AM
[2025-04-29] MEDS ORDERED: Meropenem 1000 MG/VIAL IV ONE ×2 (02:07→08:43)
[2025-04-29] MEDS ORDERED: NA CHLORIDE 0.9% 100 ML ONE ×2 (02:07→08:44)
[2025-04-29] MEDS ORDERED: NA CHLORIDE 0.9% 1,000 ML ONE (02:07)
[2025-04-29] MEDS ORDERED: HYDROMORPHONE HCL 0.5 MG/0.5 ML INJ ONE ×2 (02:22→10:12)
[2025-04-29] MEDS: MORPHINE 4 MG/ML SYR IV STA (04:39)
[2025-04-29] MEDS ORDERED: D5 0.45 NS 1,000 ML IV ONE (05:31)
[2025-04-29] MEDS: D5 0.45 NS 1,000 ML IV SCH (05:37)
--- NOTE | 2025-04-29 06:12 | P.HP ---
Certification for Inpatient Patient admitted to: Inpatient With expected LOS: >2 Midnights Patient will require the following post-hospital care: None Practitioner: I am a practitioner with admitting privileges, knowledge of patient current condition, hospital course, and medical plan of care. Services: Services provided to patient in accordance with Admission requirements found in Title 42 Section 412.3 of the Code of Federal Regulations <Anival Zepeda - Last Filed: 04/29/25 06:59> Patient History Date of Service: 04/29/25 Reason for admission: Severe abdominal pain, N/V post biliary stent placement History of Present Illness: Patient is a 55-year-old female with past medical history of C. diff, colitis, malignant uterine mass, essential hypertension, type 2 diabetes mellitus, who had biliary stent placement today done by , who presents to the ER complaining of severe and diffuse abdominal pain associated with nausea and vomiting nonbilious, and nonbloody content. According to report received from ER Dr. Claros, he states he made several calls to Dr. Drake to inform him of patient current condition while in the ER,and he never answered his phone call and never returned his call. He states he then spoke to surgery on-call Dr. Arango who requested for CT of the abdomen, and to admit patient and he will see the patient in the morning and states he will also talk to Dr. Drake in the morning. He request for patient to be started on meropenem. Patient current lipase greater than 5000. During admission assessment, patient denied of any chest pain or shortness of breath, endorses severe diffuse abdominal pain associated with nausea and vomiting. Patient had a CT of the abdomen done in the ER , impression: (1) interval placement of an internal biliary stent with pneumobilia and gas densities noted in the gallbladder lumen. No inflammatory changes are noted. (2) nonobstructing bilateral renal calyceal stones (3) thickening of the rectal wall without surrounding inflammatory changes. Correlation for proctitis may be helpful. Patient WBC 21.20, with a left shift. - Past Medical/Surgical History -: C. difficile -: Colitis -: Malignant uterine mass. -: Essential hypertension. -: Type 2 diabetes mellitus. -: CKD -: Biliary stent placement. -: Hysterectomy. -: Appendectomy. - Social History Smoking Status: Never smoker Alcohol use: No CD- Drugs: No Caffeine use: No Place of Residence: Home <DuaneAnival - Last Filed: 04/29/25 06:59> Date of Service: 04/29/25 <Shobha Nunez - Last Filed: 04/30/25 00:10> Allergies meperidine [From Demerol] Allergy (Intermediate, Verified 04/29/25 05:29) Itching/Hives/Rash promethazine [From Phenergan] Allergy (Verified 04/29/25 05:30) Itching/Hives/Rash Review of Systems 10-point ROS is otherwise unremarkable Gastrointestinal: Nausea, Vomiting, Abdominal Pain (Diffuse abdominal pain) <DuaneAnival - Last Filed: 04/29/25 06:59> Physical Examination - Physical Exam General: Alert, Oriented x3 HEENT: Atraumatic, Normocephalic, PERRLA, Mucous membr. moist/pink, Sclerae nonicteric Neck: Supple, 2+ carotid pulse no bruit, No LAD, Without JVD or thyroid abnormality Respiratory: Clear to auscultation bilaterally, Normal air movement Cardiovascular: No edema, Normal pulses, Regular rate/rhythm, Normal S1 S2, No gallops, No rubs, No murmurs Capillary refill: <2 Seconds Gastrointestinal: Normal bowel sounds, No ascites, Tenderness, Rebound Musculoskeletal: No clubbing, No swelling, No contractures, No erythema, No tenderness, No warmth Integumentary: No rashes, No breakdown, No significant lesion, No tenderness/swelling, No erythema, No warmth, No cyanosis Neurological: Normal gait, Normal speech, Normal strength at 5/5 x4 extr, Normal tone, Sensation intact, Cranial nerves 3-12 intact, Normal reflexes 2+, Normal affect Lymphatics: No axilla or inguinal lymphadenopathy - Studies Laboratory Data (last 24 hrs) 04/28/25 04/28/25 21:57 21:57 WBC 21.20 H Hgb 12.4 Hct 36.6 Plt Count 236 Sodium 136 Potassium 3.3 L BUN 14 Creatinine 0.98 Glucose 163 H Total Bilirubin 0.5 AST 20 ALT 21 Alkaline Phosphatase 42 L Lipase > 5000 H <DuaneAnival - Last Filed: 04/29/25 06:59> Female Exam - Breasts Breasts: Normal configuration <Anival Zepeda - Last Filed: 04/29/25 06:59> Assessment and Plan - Plan Patient is a 55-year-old female post biliary stent placement day 1, who presents to ER complaining of worsening and diffuse abdominal pain associate with nausea and vomiting. Patient admitted and Dr. Arango to see patient in morning. Lipase is 5000. (1)Severe abdominal pain with nausea and vomiting. -Patient kept n.p.o. at this time. Consult Dr. Arango. IV D5 1/2 NS at 75 mL/ hr. -Zofran 4 mg IV as needed every 6 hours. -Morphine 4 mg IV as needed every 4 hours. -Meropenem 1000 mg every 8 hours. -Follow repeat lipase. (2)Chronic type 2 diabetes mellitus. -Accu-Chek every 6 hours since patient is NPO. -Mild sliding scale coverage due to patient NPO. (3)Explained the entire treatment plan to the patient, solicit questions answered and voiced understanding. Discharge Plan: Home Plan to discharge in: 72 Hours - Advance Directives Does patient have a Living Will: No Does patient have a Durable POA for Healthcare: No - Code Status/Comfort Care Code Status Assessed: Yes Code Status: Full Code Critical Care: No Time Spent Managing Pts Care (In Minutes): 55 <Anival Zepeda - Last Filed: 04/29/25 06:59> Date of Service: 04/29/25 Patient was seen and examined. Events of the last 24 hours have been noted. Spoke with with MIKKI regarding patient's clinical picture after evaluating and examining the patient independently. I performed a substantial part of the MDM during this patient's care today. I personally made or approved the documented management plan and acknowledge its risk of complications. I agree with the findings and documentation provided in the MIKKI's notes. Patient with post ERCP pancreatitis. GI consulted. Continue with IV fluids and monitor labs. Continue with pain control. Patient attempted on GAS WORKER pump but blood pressure dropped. Continue with monitoring hemodynamics closely. <Shobha Nunez - Last Filed: 04/30/25 00:10>
[2025-04-29] MEDS: POTASSIUM CL SA 10 MEQ TAB PO ONE (08:00)
[2025-04-29] MEDS ORDERED: ONDANSETRON 4 MG/2 ML VIAL ONE (08:42)
[2025-04-29] MEDS ORDERED: POTASSIUM CL SA 10 MEQ TAB PO ONE (08:43)
[2025-04-29] MEDS ORDERED: MORPHINE 4 MG/ML SYR ONE (08:44)
[2025-04-29] MEDS ORDERED: ENOXAPARIN 40 MG/0.4 ML SQ ONE (08:44)
[2025-04-29] MEDS: Meropenem 1,000 MG in NA CHLORIDE 0.9% 100 ML IV SCH (09:00)
[2025-04-29] MEDS: ENOXAPARIN 40 MG/0.4 ML SQ SCH (09:00)
[2025-04-29] MEDS: ONDANSETRON 4 MG/2 ML VIAL IV PRN (09:06)
[2025-04-29] MEDS: MORPHINE 4 MG/ML SYR IV PRN (09:06)
[2025-04-29 09:30] LABS: Anion Gap 6.3 mEq/L (5.0-15.0); BUN Blood Urea Nitrogen 10.0 mg/dL (7-18); Glucose Level 122.0 mg/dL (74-106); Magnesium 1.9 mg/dL (1.6-2.4); Potassium 3.3 mEq/L (3.5-5.1)
[2025-04-29] MEDS: HYDROMORPHONE HCL 0.5 MG/0.5 ML INJ IV ONE (10:05)
[2025-04-29] MEDS ORDERED: NALOXONE 0.4 MG/ML VIAL IV PRN (14:56)
[2025-04-29] MEDS: HYDROMORPHONE/PCA 10 MG/50 ML SYR IV PRN (16:35)
[2025-04-29] MEDS: NA CHLORIDE 0.9% 1,000 ML IV ONE (17:47)
[2025-04-29] MEDS: KETOROLAC 30 MG/ML INJ IV PRN (20:35)
[2025-04-29] MEDS: FENTANYL CITR 100 MCG/2 ML IV ONE (21:37)
[2025-04-29] MEDS: ZOLPIDEM TARTRATE 5 MG TABLET PO PRN (21:57)
[2025-04-29] MEDS: Ringers Lactate 1,000 ML IV ONE (21:59)
[2025-04-30] MEDS: FENTANYL CITR 100 MCG/2 ML IV PRN (02:31)
[2025-04-30 04:53] LABS: Absolute Lymphocytes (CBC) 1.6 K/uL (0.7-4.9); Hematocrit 27.9 % (36.0-45.0); Hemoglobin 9.7 g/dL (12.0-15.0); MCH 32.6 pg (27.0-35.0); MCHC 34.6 g/dL (32.0-36.0); MCV 94.1 fL (80-100); MPV 7.8 fL (7.6-11.3); Nucleated RBC Absolute Count 0.0 (0-0); Nucleated Red Blood Cells % 0.0 % (0-0); RBC Red Blood Cell Count 2.97 M/uL (3.86-4.86); White Blood Count 10.50 thou/uL (4.3-10.9)
[2025-04-30 05:14] LABS: AST/SGOT < 10 U/L (15-37); Albumin 2.7 g/dL (3.4-5.0); Albumin/Globulin Ratio 1.0 (1.1-1.8); Alkaline Phosphatase 26 U/L (45-117); Anion Gap 5.8 mEq/L (5.0-15.0); BUN Blood Urea Nitrogen 9 mg/dL (7-18); Globulin 2.7 g/dL (2.3-3.5); Glucose Level 111 mg/dL (74-106); Lipase 673 U/L (13-75); Magnesium 1.8 mg/dL (1.6-2.4); Potassium 3.8 mEq/L (3.5-5.1)
[2025-04-30 05:15] LABS: ALT/SGPT < 14 U/L (13-56)
[2025-04-30] MEDS: POTASSIUM PHOS IN 0.9 % NACL 15 MMOL/250 ML BAG IV ONE (05:45)
[2025-04-30] MEDS: MAGNESIUM SULFATE 1 gm IVPB 1 GM/100 ML BAG IV ONE (08:05)
--- NOTE | 2025-04-30 10:33 | P.PN ---
Date of Service: 04/30/25 Subjective: still having pain. is at bedside. We discussed continuing coservative care until her pain improves. No fevers, Physical Exam: Gen: Alert, NAD, Orientedx3 CV: Regular rate and rhythm, no edema Pulm: Nonlabored respirations on room air, clear bilaterally Abdomen: Soft, diffuse tenderness Neuro: Normal strength, normal affect Problem List: Intractable abdominal pain, nausea, vomiting Post-ERCP pancreatitis with recent bile duct stent placement Hypophosphatemia Hypertension Hx of malignant uterine mass Hx of C. diff Intractable abdominal pain, nausea, vomiting Post-ERCP pancreatitis with recent bile duct stent placement on admission, presents with intractable abdominal pain assocaited with nausea/vomiting. Just recently had bile duct stent placed prior to admission at Dr. Pastor office. CT abd/pelvis (04/28): internal biliary stent with pneumobilia and gas densities noted in the gallbladder lumen. Nonobstructing bilateral renal calyceal stones, thickening of rectal wall, urinary bladder mildly distended. Given IV merrem, Rocephin, IVF in ED Dr. Drake, GI consulted Continue IV merrem (04/29-) IV fluids, pain control Lipase >5k on admission. Down to 673 today LFTS normal, lactic acid normal Hypophosphatemia monitor and replete electrolytes as needed Hypertension confirm home meds, restart as appropriate VTE: Lovenox Code: Full Dispo: Home Pending pain and n/v improve, GI recs
[2025-04-30] MEDS: FAMOTIDINE 20 MG/2 ML VIAL IV ONE (11:01)
[2025-04-30] MEDS: ESCITALOPRAM 20 MG TAB PO SCH (16:49)
[2025-05-01] MEDS: ZOLPIDEM TARTRATE 10 MG TABLET PO ONE (00:56)
[2025-05-01 06:01] LABS: Absolute Lymphocytes (CBC) 1.3 K/uL (0.7-4.9); Hematocrit 30.1 % (36.0-45.0); Hemoglobin 10.7 g/dL (12.0-15.0); MCH 33.2 pg (27.0-35.0); MCHC 35.7 g/dL (32.0-36.0); MCV 93.0 fL (80-100); MPV 8.0 fL (7.6-11.3); Nucleated RBC Absolute Count 0.0 (0-0); Nucleated Red Blood Cells % 0.1 % (0-0); RBC Red Blood Cell Count 3.24 M/uL (3.86-4.86); White Blood Count 6.30 thou/uL (4.3-10.9)
[2025-05-01 06:15] LABS: Albumin 3.1 g/dL (3.4-5.0); Albumin/Globulin Ratio 1.0 (1.1-1.8); Alkaline Phosphatase 36 U/L (45-117); Anion Gap 7.3 mEq/L (5.0-15.0); BUN Blood Urea Nitrogen 6 mg/dL (7-18); Globulin 3.1 g/dL (2.3-3.5); Glucose Level 129 mg/dL (74-106); Magnesium 1.9 mg/dL (1.6-2.4); Potassium 3.3 mEq/L (3.5-5.1)
[2025-05-01 06:18] LABS: ALT/SGPT < 14 U/L (13-56); AST/SGOT < 10 U/L (15-37)
[2025-05-01] MEDS: POTASSIUM PHOS IN 0.9 % NACL 15 MMOL/250 ML BAG IV ONE (06:31)
--- NOTE | 2025-05-01 07:11 | P.PN ---
Date of Service: 05/01/25 Subjective: No acute events overnight. Feeling anxious more this morning. Still has not eaten very much. She endorses pain after eating the fear of it. We discussed modifying her pain regimen for better control. Physical Exam: Gen: Alert, NAD, Orientedx3 CV: Regular rate and rhythm, no edema Pulm: Nonlabored respirations on room air, clear bilaterally Abdomen: Soft, diffuse tenderness Neuro: Normal strength, normal affect Problem List: Intractable abdominal pain, nausea, vomiting Post-ERCP pancreatitis with recent bile duct stent placement Hypophosphatemia Hypertension Hx of malignant uterine mass Hx of C. diff Intractable abdominal pain, nausea, vomiting Post-ERCP pancreatitis with recent bile duct stent placement on admission, presents with intractable abdominal pain assocaited with nausea/vomiting. Just recently had bile duct stent placed prior to admission at Dr. Pastor office. CT abd/pelvis (04/28): internal biliary stent with pneumobilia and gas densities noted in the gallbladder lumen. Nonobstructing bilateral renal calyceal stones, thickening of rectal wall, urinary bladder mildly distended. Given IV merrem, Rocephin, IVF in ED Dr. Drake, GI consulted Continue IV merrem (04/29-) IV fluids, pain control Lipase >5k on admission. Repeat lipase now at 123 T bili normal add morphine 4mg IV q6 and norco 7/325 q6 prn LFTS normal, lactic acid normal Advance to full liquid diet Hypophosphatemia replete phosphorous per protocol Hypertension confirm home meds, restart as appropriate Anxiety As needed Klonopin VTE: Lovenox Code: Full Dispo: Home Pending pain and n/v improve, GI recs
[2025-05-01 07:35] LABS: Lipase 123.0 U/L (13-75)
[2025-05-01] MEDS: clonazePAM 0.5 MG TAB PO PRN (07:39)
[2025-05-01] MEDS ORDERED: FAMOTIDINE 20 MG/2 ML VIAL IV ONE (10:33)
[2025-05-01] MEDS: MORPHINE 4 MG/ML SYR IV PRN (11:16)
[2025-05-01] MEDS: PROMETHAZINE 25 MG TABLET PO PRN (11:57)
[2025-05-01] MEDS: PANTOPRAZOLE 40MG TABLET PO SCH (11:57)
[2025-05-01] MEDS: KCL 20 MEQ/100 mL IVPB 20 MEQ/100 ML BAG IV SCH (12:51)
[2025-05-01] MEDS: HYDROCODONE/APAP 7.5/325 MG TAB PO PRN (15:35)
[2025-05-02 06:19] LABS: Anion Gap 8.5 mEq/L (5.0-15.0); BUN Blood Urea Nitrogen 5.0 mg/dL (7-18); Glucose Level 113.0 mg/dL (74-106); Magnesium 2.0 mg/dL (1.6-2.4); Potassium 3.5 mEq/L (3.5-5.1)
[2025-05-02] MEDS: POTASSIUM PHOS IN 0.9 % NACL 15 MMOL/250 ML BAG IV ONE (08:46)
[2025-05-02] MEDS: OXYCODONE *CR* 10 MG TAB PO SCH ×2 (10:00→12:04)
[2025-05-02] MEDS: HYDROMORPHONE HCL 1 MG/ML INJ IV PRN (10:34)
--- NOTE | 2025-05-02 13:34 | P.PN ---
Date of Service: 05/02/25 Subjective: States the pain medication does not do much for pain. We discussed increasing the dosage of her pain medications so she can eat. Still having a lot of pain after eating. Vitals otherwise stable overnight. Denies fevers and chills Physical Exam: Gen: Alert, NAD, Orientedx3 CV: Regular rate and rhythm, no edema Pulm: Nonlabored respirations on room air, clear bilaterally Abdomen: Soft, diffuse tenderness Neuro: Normal strength, normal affect Problem List: Intractable abdominal pain, nausea, vomiting Post-ERCP pancreatitis with recent bile duct stent placement Hypophosphatemia Hypertension Hx of malignant uterine mass Hx of C. diff Intractable abdominal pain, nausea, vomiting Post-ERCP pancreatitis with recent bile duct stent placement on admission, presents with intractable abdominal pain assocaited with nausea/vomiting. Just recently had bile duct stent placed prior to admission at Dr. Pastor office. CT abd/pelvis (04/28): internal biliary stent with pneumobilia and gas densities n oted in the gallbladder lumen. Nonobstructing bilateral renal calyceal stones, thickening of rectal wall, urinary bladder mildly distended. Given IV merrem, Rocephin, IVF in ED Dr. Drake, GI consulted Continue IV merrem (04/29-) IV fluids, pain control Lipase >5k on admission. Repeat lipase now at 123 T bili normal Add Dilaudid 1 mg every 3 hours as needed and switch [place] to oxycodone 10 mg twice daily extended release for better pain control LFTS normal, lactic acid normal Advance to full liquid diet Hypophosphatemia Continue to replace phosphorus Hypertension confirm home meds, restart as appropriate Anxiety As needed Klonopin VTE: Lovenox Code: Full Dispo: Home Pending pain and n/v improve, GI recs
[2025-05-02] MEDS ORDERED: KETOROLAC 30 MG/ML INJ IV ONE (17:15)
[2025-05-02] MEDS: TRAMADOL HCL 50 MG TAB PO PRN (18:39)
[2025-05-02] MEDS ORDERED: OXYCODONE *CR* 10 MG TAB PO SCH (21:00)
[2025-05-03 05:12] VITALS: BMI 18.6
[2025-05-03 06:17] LABS: Anion Gap 8.4 mEq/L (5.0-15.0); BUN Blood Urea Nitrogen 5.0 mg/dL (7-18); Glucose Level 109.0 mg/dL (74-106); Magnesium 2.0 mg/dL (1.6-2.4); Potassium 3.4 mEq/L (3.5-5.1)
[2025-05-03] MEDS: POTASSIUM CL SA 10 MEQ TAB PO ONE (08:08)
[2025-05-03 08:34] LABS: Absolute Lymphocytes (CBC) 2.0 K/uL (0.7-4.9); Hematocrit 33.4 % (36.0-45.0); Hemoglobin 11.8 g/dL (12.0-15.0); MCH 32.8 pg (27.0-35.0); MCHC 35.4 g/dL (32.0-36.0); MCV 92.6 fL (80-100); MPV 8.1 fL (7.6-11.3); Nucleated RBC Absolute Count 0.0 (0-0); Nucleated Red Blood Cells % 0.1 % (0-0); RBC Red Blood Cell Count 3.61 M/uL (3.86-4.86); White Blood Count 5.90 thou/uL (4.3-10.9)
[2025-05-03] MEDS: KETOROLAC 30 MG/ML INJ IV SCH (09:43)
[2025-05-03] MEDS: D5 0.45 NS 1,000 ML IV SCH (09:49)
[2025-05-03 10:00] VITALS: O2SAT 99
[2025-05-03] MEDS: FENTANYL 50 MCG/PATCH TD SCH (10:16)
[2025-05-03] MEDS: MORPHINE 2 MG/ML SYR IV PRN (13:33)
--- NOTE | 2025-05-03 15:58 | P.PN ---
Date of Service: 05/03/25 Subjective: Still having issues eating and with pain. Her blood pressure is on the softer side and she has been unable to take pain medication. Will try switching back to fentanyl today. She endorses pain shortly after eating. Physical Exam: Gen: Alert, NAD, Orientedx3 CV: Regular rate and rhythm, no edema Pulm: Nonlabored respirations on room air, clear bilaterally Abdomen: Soft, diffuse tenderness Neuro: Normal strength, normal affect Problem List: Intractable abdominal pain, nausea, vomiting Post-ERCP pancreatitis with recent bile duct stent placement Hypophosphatemia Hypertension Hx of malignant uterine mass Hx of C. diff Intractable abdominal pain, nausea, vomiting Post-ERCP pancreatitis with recent bile duct stent placement Repeat CT abdomen with contrast pending Just recently had bile duct stent placed prior to admission at Dr. Pastor office. CT abd/pelvis (04/28): internal biliary stent with pneumobilia and gas densities noted in the gallbladder lumen. Nonobstructing bilateral renal calyceal stones, thickening of rectal wall, urinary bladder mildly distended. Dr. Drake, GI consulted Continue IV merrem (04/29-) IV fluids, pain control Lipase ->5k --> 123 T bili normal Stop Dilaudid due to hypotension Start fentanyl patch 50 mcg every 3 days Alternate with tramadol 100 mg every 6 hour Add Toradol 15 mg twice daily as needed LFTS normal, lactic acid normal Advance to full liquid diet Hypophosphatemia Continue to replace phosphorus Phosphorus increased to 1.1 -->1.8 Hypertension confirm home meds, restart as appropriate Anxiety As needed Klonopin VTE: Lovenox Code: Full Dispo: Home Pending pain and n/v improve, GI recs
--- NOTE | 2025-05-03 21:24 | RAD REPORT ---
EXAMINATION: Abdomen Pelvis W Contrast CLINICAL INDICATION: Female, 55 years old.Evaluate biliary stent Patient still unable to eat TECHNIQUE: CT abdomen and pelvis was performed, after the administration of IV contrast, as per [facility] protocol. Axial, sagittal and coronal reconstructions were obtained. One or more of the following dose reduction techniques were used: Automated exposure control, adjustment of the mA and/o r kV according to patient size, and/or iterative reconstruction. Unless otherwise specified, incidental findings do not require dedicated imaging follow-up. [id number]. COMPARISON: 04/28/2025 FINDINGS: LOWER CHEST: No acute process identified.No significant pericardial effusion. UPPER GI: No significant abnormality. LIVER: No significant focal abnormality. GALLBLADDER/BILE DUCTS: Pneumobilia. Plastic stent in the common bile duct. The stent is at the dista l common bile duct with tip terminating in the third portion of the duodenum.?Increased gallbladder decompression. The common bile duct is slightly less dilated now measuring approximately 5 mm, previo usly 8 mm. PANCREAS: No mass, ductal dilation, or elli-pancreatic fluid. SPLEEN: Low density splenic lesion(s), statistically benign. ADRENALS: No adrenal masses. KIDNEYS AND URETERS: No hydronephrosis.Low density and/or too small to characterize renal lesions whi ch are statistically benign.Nonobstructing renal calculi. ABDOMINAL AORTA AND OTHER VESSELS: Normal caliber aorta and IVC. PERITONEUM: No abnormal free fluid. No free air. LYMPH NODES: No pathologic lymphadenopathy. ABDOMINAL WALL: Unremarkable SMALL BOWEL/COLON: Small bowel has normal course and caliber. No colonic wall thickening or pericolon ic inflammatory changes. URINARY BLADDER: Underdistended but grossly unremarkable. REPRODUCTIVE ORGANS: No pathologic process. MUSCULOSKELETAL: No acute or suspicious osseous abnormality. ADDITIONAL FINDINGS: None. IMPRESSION: Common bile duct stent with proximal portion at the mid to lower third of the common bile duct. The d istal tip is in the third portion of duodenum. Extrahepatic biliary duct dilatation is improved since 04/28/2025. There is also increased gallbladder decompression. No bowel obstruction.
[2025-05-04 06:06] LABS: Anion Gap 3.7 mEq/L (5.0-15.0); BUN Blood Urea Nitrogen 6.0 mg/dL (7-18); Glucose Level 100.0 mg/dL (74-106); Magnesium 2.0 mg/dL (1.6-2.4); Potassium 3.7 mEq/L (3.5-5.1)
[2025-05-04] MEDS: SUCRALFATE 1 GM TABLET PO SCH (08:22)
[2025-05-04] MEDS: POTASS/SODIUM PHOSPHATE 1 PKT POWD.PACK PO SCH (08:53)
[2025-05-04] MEDS ORDERED: HYDROCODONE/APAP 7.5/325 MG TAB PO PRN (09:20)
[2025-05-04] MEDS ORDERED: KETOROLAC 30 MG/ML INJ IV PRN (09:21)
--- NOTE | 2025-05-04 14:37 | P.DS ---
Admission Date: 04/29/25 Discharge Date: 05/04/25 Disposition: ROUTINE DISCHARGE Discharge Condition: GOOD Reason for Admission: Severe abdominal pain, N/V post biliary stent placement Brief History of Present Illness: Patient is a 55-year-old female with past medical history of C. diff, colitis, malignant uterine mass, essential hypertension, type 2 diabetes mellitus, who had biliary stent placement today done by , who presents to the ER complaining of severe and diffuse abdominal pain associated with nausea and vomiting nonbilious, and nonbloody content. According to report received from ER Dr. Claros, he states he made several calls to Dr. Drake to inform him of patient current condition while in the ER,and he never answered his phone call and never returned his call. He states he then spoke to surgery on-call Dr. Arango who requested for CT of the abdomen, and to admit patient and he will see the patient in the morning and states he will also talk to Dr. Drake in the morning. He request for patient to be started on meropenem. Patient current lipase greater than 5000. During admission assessment, patient denied of any chest pain or shortness of breath, endorses severe diffuse abdominal pain associated with nausea and vomiting. Patient had a CT of the abdomen done in the ER , impression: (1) interval placement of an internal biliary stent with pneumobilia and gas densities noted in the gallbladder lumen. No inflammatory changes are noted. (2) nonobstructing bilateral renal calyceal stones (3) thickening of the rectal wall without surrounding inflammatory changes. Correlation for proctitis may be helpful. Patient WBC 21.20, with a left shift. Upon admission she was placed on pain medication and antibiotics. Her clinical condition slowly improved over the course of her stay. She did experience increased pain tolerance and upon administration of high-dose narcotics she became hypotensive. Managing her pain during this admission has been complicated. Eventually her leukocytosis resolved and electrolyte abnormalities were corrected. Upon discussion with her gastroenterology we will discharge and she will follow-up for any additional needs. Repeat CT scan showed improvement in biliary dilation. She is now tolerating oral intake and will be discharged home. Follow-up with her PCP. She is medically optimized for discharge Hospital Course: Physical Exam: Gen: Alert, NAD, Orientedx3 CV: Regular rate and rhythm, no edema Pulm: Nonlabored respirations on room air, clear bilaterally Abdomen: Soft, diffuse tenderness Neuro: Normal strength, normal affect Problem List: Intractable abdominal pain, nausea, vomiting Post-ERCP pancreatitis with recent bile duct stent placement Hypophosphatemia Hypertension Hx of malignant uterine mass Hx of C. diff Intractable abdominal pain, nausea, vomiting Post-ERCP pancreatitis with recent bile duct stent placement Repeat CT abdomen with contrast pending Just recently had bile duct stent placed prior to admission at Dr. Pastor office. CT abd/pelvis (04/28): internal biliary stent with pneumobilia and gas densities noted in the gallbladder lumen. Nonobstructing bilateral renal calyceal stones, thickening of rectal wall, urinary bladder mildly distended. Dr. Drake, GI consulted Continue IV merrem (04/29-) IV fluids, pain control Lipase ->5k --> 123 T bili normal Stop Dilaudid due to hypotension Start fentanyl patch 50 mcg every 3 days Alternate with tramadol 100 mg every 6 hour Add Toradol 15 mg twice daily as needed LFTS normal, lactic acid normal Advance to full liquid diet Hypophosphatemia Continue to replace phosphorus Phosphorus increased to 1.1 -->1.8 Hypertension confirm home meds, restart as appropriate Anxiety As needed Klonopin VTE: Lovenox Code: Full Dispo: Home Pending pain and n/v improve, GI recs Vital Signs/Physical Exam: Temp Pulse Resp BP Pulse Ox 99.2 F 65 16 99/55 L 100 05/04/25 12:00 05/04/25 12:00 05/04/25 12:00 05/04/25 12:00 05/04/25 12:00 Laboratory Data at Discharge: WBC 5.90 thou/uL (4.3-10.9) 05/03/25 05:16 Hgb 11.8 g/dL (12.0-15.0) L 05/03/25 05:16 Hct 33.4 % (36.0-45.0) L 05/03/25 05:16 Plt Count 272 thou/uL (152-406) 05/03/25 05:16 Sodium 139 mEq/L (136-145) 05/04/25 05:08 Potassium 3.7 mEq/L (3.5-5.1) 05/04/25 05:08 BUN 6 mg/dL (7-18) L 05/04/25 05:08 Creatinine 0.76 mg/dL (0.55-1.02) 05/04/25 05:08 Glucose 100 mg/dL (74-106) 05/04/25 05:08 Phosphorus 2.3 mg/dL (2.5-4.9) L 05/04/25 05:08 Magnesium 2.0 mg/dL (1.6-2.4) 05/04/25 05:08 Total Bilirubin 0.4 mg/dL (0.2-1.0) 05/01/25 05:20 Total Bilirubin 0.4 mg/dL (0.2-1.0) 05/01/25 05:20 AST < 10 U/L (15-37) L 05/01/25 05:20 ALT < 14 U/L (13-56) 05/01/25 05:20 Alkaline Phosphatase 36 U/L (45-117) L D 05/01/25 05:20 Lipase 123 U/L (13-75) H 05/01/25 05:20 Home Medications: Pantoprazole [Protonix Tab*] 1 tab PO BID 04/29/25 Trazodone HCl 2 tab PO BEDTIME 04/29/25 Escitalopram [Lexapro*] 1 tab PO DAILY 04/30/25 Mesalamine 1 tab PO BID 04/30/25 Physician Discharge Instructions: PROBLEM: Severe abdominal pain status post Biliary stent placement GOAL: Clear understanding of disease process INSTRUCTIONS: Call 4th floor nurses station for any question at [phone] Follow up with GI. Continue home medication. Return to ED or call 911 for worsening symptoms Diet: Soft bite Activity: Fall prevention Followup: Russ Drake MD [ACTIVE - CAN ADMIT] - 1-2 Weeks Nadeen Laboy FNP [Primary Care Provider] - 1 Week
[2025-05-04 16:30] VITALS: BP 103/61; TEMP 98.4
[2025-05-06] MEDS ORDERED: FENTANYL 50 MCG/PATCH TD SCH (09:00)
== END 2025-05-04 17:15 | disposition home or self-care (01) | DRG 393 ==
LOC: ER 21:17 → ERHOLD 04-29 04:37 → 4TH 04-29 13:40
PROVIDERS: ADMIT Hospitalist; ATTEND Family Medicine
DX: K91.89 Other postprocedural complications and disorders of digestive system (principal); K85.90 Acute pancreatitis without necrosis or infection, unspecified; I10 Essential (primary) hypertension; F41.9 Anxiety disorder, unspecified; E11.9 Type 2 diabetes mellitus without complications; E83.39 Other disorders of phosphorus metabolism; Z88.5 Allergy status to narcotic agent; Z88.8 Allergy status to other drugs, medicaments and biological substances; Z90.49 Acquired absence of other specified parts of digestive tract; Z90.710 Acquired absence of both cervix and uterus
CPT/HCPCS: 36415; 74177; 80048; 80053; 82247; 83605; 83690; 83735; 84100; 85025; 96361; 96365; 96366; 96367; 96375; 99285; J0696; J1171; J1650; J2185; J2270; J2405; J3010; J3475; J3480; J7030; J7120; J7799; Q0169; Q9967